=== PATIENT | female | born 1960 | race Caucasian/White ===

== ENCOUNTER 2017-02-04 09:16 | Inpatient (IN) | payer OTHER ==
[~2017-02-04] VITALS: Ht 165.1 cm; Wt 98.9 kg
[~2017-02-04 09:16] MED LIST: LISI-461 PO; LPR25 PO
[2017-02-04] MEDS ORDERED: MoRPHine SULFATE 10 MG/ML CARP/VIAL IV STA (09:39)
[2017-02-04] MEDS ORDERED: SODIUM CHLORIDE 0.9% 1000ML 1,000 ML IV STA ×2 (09:39→10:14)
[2017-02-04] MEDS ORDERED: ONDANSETRON INJ 2 MG/ML 2 ML VIAL IV STA ×2 (09:39→13:00)
[2017-02-04] MEDS ORDERED: ACETAMINOPHEN 500 MG TAB PO STA (09:47)
[2017-02-04] MEDS ORDERED: OPTIRAY 320 IV PRN (10:00)
[2017-02-04] MEDS ORDERED: CEFTRIAXONE SOD INJ 1 GM ADDVIAL IV STA (10:01)
[2017-02-04 10:11] LABS: BASO % 0.2 %; BASO ABS # 0.02 K/uL (0-0.2); COMPLETE YES; EOS % 0.2 %; HEMATOCRIT 38.4 % (37-47); IG% 0.3 %; LYMPH ABS # 0.39 K/uL (1.2-3.4); MEAN CELL VOLUME 85.1 fL (80-100); MEAN CORPUSCULAR HEMOGLOBIN 30.4 pg (25-34); MEAN CORPUSCULAR HGB CONC 35.7 g/dl (32-36); MEAN PLATELET VOLUME 10.9 fL (7.4-10.4); MONO % 3.9 %; NEUT % 92.4 %; PLATELET COUNT 164 K/uL (130-400); RED BLOOD COUNT 4.51 M/uL (4.2-5.4); WHITE BLOOD COUNT 13.18 K/uL (4.8-10.8)
[2017-02-04 10:49] LABS: ALKALINE PHOSPHATASE 53 U/L (45-117); ALT/SGPT 25 U/L (12-78); AST/SGOT 23 U/L (15-37); BLOOD UREA NITROGEN 12 mg/dl (7-18); BUN/CREATININE RATIO 19.1 (10-20); CALCIUM 9.1 mg/dl (8.5-10.1); CARBON DIOXIDE 25 mmol/L (21-32); CHLORIDE 105 mmol/L (98-107); CREATININE 0.65 mg/dl (0.60-1.20); GLUCOSE 90 mg/dl (70-99); POTASSIUM 3.8 mmol/L (3.5-5.1); SODIUM 137 mmol/L (136-145)
--- NOTE | 2017-02-04 11:02 | DIAGNOSTIC IMAGING REPORT ---
BILATERAL LOWER EXTREMITY VENOUS DOPPLER HISTORY: Acute bilateral lower extremity pain COMPARISON STUDY: None. FINDINGS: There is normal compressibility, flow, and augmentation within the bilateral lower extremity deep venous systems. Incidental note is made of a lymph node adjacent to the right common femoral vein, 0.9 x 1.2 x 0.6 cm, likely physiologic. IMPRESSION: No sonographic evidence of deep venous thrombosis within the right or left lower extremity. Electronically signed by: Adalberto Ramachandran M.D. 02/04/2017 11:00 AM Dictated Date/Time: 02/04/2017 10:59 AM
[2017-02-04 11:30] LABS: PREG INTERNAL NEGATIVE QC NEG CLEAR BACKGROUND; PREG INTERNAL POSITIVE QC POS CONTROL LINE
[2017-02-04 11:34] LABS: URINE APPEARANCE CLEAR (CLEAR); URINE BILIRUBIN NEG (NEG); URINE COLOR YELLOW; URINE NITRITE NEG (NEG); URINE PH 8.5 (4.5-7.5); URINE SPECIFIC GRAVITY 1.015 (1.000-1.030); UROBILINOGEN NEG (NEG); ZZUR CULT IF INDIC CLEAN CATCH NO
[2017-02-04 11:40] LABS: MANUAL MICROSCOPIC REQUIRED? NO; REVIEW REQ? NO
--- NOTE | 2017-02-04 12:10 | DIAGNOSTIC IMAGING REPORT ---
ABD/PELVIS IV CONTRAST ONLY HISTORY: 56 years-old Female acute diffuse abdominal pain with concern for cellulitis. COMPARISON: CT abdomen and pelvis 04/18/2016 TECHNIQUE: Multiple axial CT images of the abdomen and pelvis were obtained following the administration of 94 mL Optiray 320 IV contrast. A dose lowering technique was used consistent with the principals of EVY. FINDINGS: There is minimal dependent bibasilar atelectasis. Additional groundglass opacities are present within the medial basal segment right lower lobe, also likely atelectatic change. No pneumoperitoneum. The imaged inferior cardiac chambers are unremarkable. Scattered low attenuating lesions throughout the hepatic parenchyma are too small to characterize appear unchanged suggesting hepatic cysts. These measure up to approximate 7 mm. The spleen, pancreas and right adrenal gland are unremarkable. 1.4 x 1.2 cm ovoid lesion of the left adrenal gland is unchanged suggesting adenoma, however is not diagnostic on this contrast-enhanced study. Cholelithiasis noted within a somewhat distended gallbladder lumen. No CT evidence of acute cholecystitis Probable cyst of the interpolar left kidney is seen, 0.9 cm which is unchanged. No renal calculi or hydronephrosis. Ureters are normal in caliber. Urinary bladder, uterus and adnexa are unremarkable. . The abdominal aorta measures mild atherosclerotic plaquing. There is nonspecific mild bilateral inguinal adenopathy measuring up to 1.5 x 2.3 cm on the right, previously 1.8 x 1.0 cm. Scattered nonenlarged periaortic adenopathy is seen which is nonspecific and may be reactive. There is no bowel obstruction. Colonic thyroid ecchymosis noted without CT evidence of acute diverticulitis. The appendix appears normal. Note is made of diastases recti. Small fat filled periumbilical hernia is noted with diastases 1.7 cm. Moderate intervertebral disc space narrowing and endplate spurring seen at L5-S1. IMPRESSION: 1. No acute intra-abdominal or intrapelvic abnormality identified. 2. Cholelithiasis without CT evidence of acute cholecystitis. 3. Colonic diverticulosis without CT evidence of acute diverticulitis. 4. Diastases recti with small fat filled periumbilical hernia. 5. Additional incidental findings as above. The above report was generated using voice recognition software. It may contain grammatical, syntax or spelling errors. Electronically signed by: Adalberto Ramachandran M.D. 02/04/2017 12:09 PM Dictated Date/Time: 02/04/2017 12:00 PM
[2017-02-04] MEDS ORDERED: VANCOMYCIN INJ 2,000 MG in SODIUM CHLORIDE 0.9% 500ML 500 ML IV STA (12:57)
--- NOTE | 2017-02-04 12:57 | DIAGNOSTIC IMAGING REPORT ---
CHEST ONE VIEW PORTABLE HISTORY: 56 years-old Female COUGH COMPARISON: Chest radiographs 05/31/2015 TECHNIQUE: Portable upright AP view of the chest FINDINGS: Cardiac silhouette is again enlarged. There is no pneumothorax. There is mild pulmonary vascular congestion without overt pulmonary edema or focal airspace consolidation. There is blunting of the bilateral costophrenic angles. Bones are grossly intact. IMPRESSION: 1. Cardiomegaly without overt pulmonary edema. 2. Blunting of the bilateral costophrenic angle suggests trace pleural effusions. The above report was generated using voice recognition software. It may contain grammatical, syntax or spelling errors. Electronically signed by: Adalberto Ramachandran M.D. 02/04/2017 12:55 PM Dictated Date/Time: 02/04/2017 12:54 PM
[2017-02-04] MEDS ORDERED: MoRPHine SULFATE 4 MG/ML 1 ML CARP\\VIAL IV STA (13:00)
--- NOTE | 2017-02-04 14:07 | DIAGNOSTIC IMAGING REPORT ---
ULTRASOUND RIGHT UPPER QUADRANT ABDOMEN CLINICAL HISTORY: Right upper quadrant abdominal pain. COMPARISON STUDY: Abdominal CT dated 04/28/2016. TECHNIQUE: Real-time, grayscale, and color flow sonography of the right upper quadrant of the abdomen was performed. Images are reviewed in the transverse and longitudinal planes. FINDINGS: Liver: The liver is normal in size and echotexture. There is no intrahepatic biliary ductal dilatation. The main portal vein is patent. Gallbladder: There are shadowing calcified gallstones. The largest measures up to 1.6 cm. Sludge is noted. There is no gallbladder wall thickening or pericholecystic fluid. A sonographic Houser's sign is reportedly absent. The common bile duct is mildly dilated measuring up to 0.8 cm in diameter. Pancreas: Visualized portions of the pancreatic head and body are normal in appearance. The splenic vein is patent. Right kidney: Survey images of the right kidney demonstrate normal size and echotexture. There is no hydronephrosis. Ascites: None. IMPRESSION: 1. Cholelithiasis and biliary sludge. There is no convincing sonographic evidence of acute cholecystitis. 2. There is mild nonspecific dilatation of the common bile duct which measures up to 8 mm. Correlation with clinical findings and serum bilirubin levels will be required. Electronically signed by: Toño Schultz M.D. 02/04/2017 2:06 PM Dictated Date/Time: 02/04/2017 1:59 PM
[2017-02-04] MEDS ORDERED: MoRPHine SULFATE 2 MG/ML CARP IV PRN ×2 (15:00)
[2017-02-04] MEDS ORDERED: MAGNESIUM HYDROXIDE SUSP 30 ML UDC PO PRN (15:00)
[2017-02-04] MEDS ORDERED: POLYETHYLENE (MIRALAX) 17 GM PACK PO PRN (15:00)
[2017-02-04] MEDS ORDERED: SODIUM CHLORIDE 0.9% 1000ML 1,000 ML IV SCH (15:00)
[2017-02-04] MEDS ORDERED: ONDANSETRON INJ 2 MG/ML 2 ML VIAL IV PRN (15:00)
[2017-02-04] MEDS ORDERED: ALUMINUM/MAGNESIUM/SIMETH (MAALOX MAX) 30 ML UDC PO PRN (15:00)
[2017-02-04 15:30] VITALS: O2SAT 90; BMI 36.3
[2017-02-04] MEDS ORDERED: VANCOMYCIN CONSULT ACTIVE PRN (15:30)
--- NOTE | 2017-02-04 15:34 | History and Physical ---
History & Physical Date & Time of Service: Feb 04, 2017 at 15:05 Chief Complaint: Possible Cellulitis Primary Care Physician: Yareli Briseno,C.R.N.P. History of Present Illness Source: patient, family (/daughter at bedside ), clinic records, hospital records Patient is a pleasant 56 y/o female, with PMHx of HTN and h/o RLE cellulitis, who presented to the ED because of bilateral lower extremity pain and RUQ pain starting this AM. According to the patient, she noticed lower extremity pain from bilateral ankles to the knees. She noticed erythema to both bilateral anterior cortez regions, however, currently erythema only present to RLE. She denies any open wounds. Abdominal pain and bilateral extremity pain 6/10 after receiving IV Morphine 4 mg x1 and 6mg x1; pain was 10/10 on arrival. She has a h /o RLE cellulitis with chronic edema and reddened skin to position/medial calf. Per patient and family, source of cellulitis was not identified. She presented to the ED with similar complaints. Per daughter, patient has been experiencing RUQ pain for sometime now. She avoided eating eggs for a long time because it would cause the pain. She admits to RUQ swelling, but took a herb medication and swelling resolved. +fever/chills/sweats. +nausea. +diffuse joint aches. Patient denies any lightheadedness, dizziness, vision changes, CP, palpitations , SOB, wheezing, cough, vomiting, diarrhea, urinary symptoms, melena, numbness/ tingling, weakness, muscle, anxiety/depression, active bleeding, or new skin discoloration/changes. Past Medical/Surgical History Medical Problems: h/o cellulitis HTN Family History Patient reports no known family medical history. Social History Smoking Status: Never Smoker Marital Status: Allergies Coded Allergies: No Known Allergies (Unverified , 02/04/17) Home Medications Scheduled Lisinopril (Lisinopril), 10 MG PO QAM Metoprolol Tartrate (Lopressor), 25 MG PO BID Physical Exam Vital Signs Date Time Temp Pulse Resp B/P (MAP) Pulse Ox O2 Delivery O2 Flow Rate FiO2 02/04/17 14:27 85 125/68 90 Room Air 02/04/17 12:40 92 137/73 93 Room Air 02/04/17 10:56 38.1 92 20 150/74 92 Room Air 02/04/17 09:40 39.5 83 95 Room Air 02/04/17 09:19 36.8 87 18 160/87 99 Room Air General Appearance: no apparent distress, + pertinent finding (flushed, diaphoretic ) Head: normocephalic, atraumatic Eyes: normal inspection, PERRL ENT: hearing grossly normal Neck: supple Respiratory/Chest: lungs clear, no respiratory distress, no accessory muscle use Cardiovascular: + tachycardia (rhythm regular ) Abdomen/GI: normal bowel sounds, soft, + tenderness (moderate-severe ttp of RUQ ), + pertinent finding (+houser's sign ) Back: normal inspection Extremities/Musculoskelatal: no calf tenderness, no pedal edema, + swelling ( non-pitting edema noted to bilateral lower extremities ), + pertinent finding ( RLE: chronic reddened skin noted to posterior/medical calf with erythema extending from medial calf to anterior cortez region ) Neurologic/Psych: alert, normal mood/affect, oriented x 3 Skin: normal color, no rash, + diaphoresis, + pertinent finding (skin hot to touch ) Diagnostics Laboratory Results Results Past 24 Hours Test 02/04/17 10:00 02/04/17 10:10 02/04/17 11:15 Range/Units White Blood Count 13.18 4.8-10.8 K/uL Red Blood Count 4.51 4.2-5.4 M/uL Hemoglobin 13.7 12.0-16.0 g/dL Hematocrit 38.4 37-47 % Mean Corpuscular Volume 85.1 80-100 fL Mean Corpuscular Hemoglobin 30.4 25-34 pg Mean Corpuscular Hemoglobin Concent 35.7 32-36 g/dl Platelet Count 164 130-400 K/uL Mean Platelet Volume 10.9 7.4-10.4 fL Neutrophils (%) (Auto) 92.4 % Lymphocytes (%) (Auto) 3.0 % Monocytes (%) (Auto) 3.9 % Eosinophils (%) (Auto) 0.2 % Basophils (%) (Auto) 0.2 % Neutrophils # (Auto) 12.19 1.4-6.5 K/uL Lymphocytes # (Auto) 0.39 1.2-3.4 K/uL Monocytes # (Auto) 0.51 0.11-0.59 K/uL Eosinophils # (Auto) 0.03 0-0.5 K/uL Basophils # (Auto) 0.02 0-0.2 K/uL RDW Standard Deviation 40.3 36.4-46.3 fL RDW Coefficient of Variation 12.8 11.5-14.5 % Immature Granulocyte % (Auto) 0.3 % Immature Granulocyte # (Auto) 0.04 0.00-0.02 K/uL Sodium Level 137 136-145 mmol/L Potassium Level 3.8 3.5-5.1 mmol/L Chloride Level 105 98-107 mmol/L Carbon Dioxide Level 25 21-32 mmol/L Anion Gap 7.0 3-11 mmol/L Blood Urea Nitrogen 12 7-18 mg/dl Creatinine 0.65 0.60-1.20 mg/dl Estimated GFR () 115.8 Estimated GFR (Non- 99.9 BUN/Creatinine Ratio 19.1 10-20 Random Glucose 90 70-99 mg/dl Calcium Level 9.1 8.5-10.1 mg/dl Total Bilirubin 0.9 0.2-1 mg/dl Direct Bilirubin 0-0.2 mg/dl Aspartate Amino Transf (AST/SGOT) 23 15-37 U/L Alanine Aminotransferase (ALT/SGPT) 25 12-78 U/L Alkaline Phosphatase 53 45-117 U/L Total Protein 7.5 6.4-8.2 gm/dl Albumin 3.5 3.4-5.0 gm/dl Lipase 112 73-393 U/L Chemistry Specimen Hemolysis Bedside Lactic Acid Venous 2.75 0.90-1.70 mmol/L Urine Color YELLOW Urine Appearance CLEAR CLEAR Urine pH 8.5 4.5-7.5 Urine Specific [place] 1.015 1.000-1.030 Urine Protein NEG NEG Urine Glucose (UA) NEG NEG Urine Ketones NEG NEG Urine Occult Blood NEG NEG Urine Nitrite NEG NEG Urine Bilirubin NEG NEG Urine Urobilinogen NEG NEG Urine Leukocyte Esterase NEG NEG Urine WBC (Auto) 0 0-5 /hpf Urine RBC (Auto) 0-4 0-4 /hpf Urine Hyaline Casts (Auto) 0 0-5 /lpf Urine Epithelial Cells (Auto) 5-10 0-5 /lpf Urine Bacteria (Auto) NEG NEG Urine Test NEG NEG Microbiology Results 02/04/17 Blood Culture, Ordered Pending 02/04/17 Blood Culture, Ordered Pending Diagnostic Radiology BILATERAL LOWER EXTREMITY VENOUS DOPPLER HISTORY: Acute bilateral lower extremity pain COMPARISON STUDY: None. FINDINGS: There is normal compressibility, flow, and augmentation within the bilateral lower extremity deep venous systems. Incidental note is made of a lymph node adjacent to the right common femoral vein, 0.9 x 1.2 x 0.6 cm, likely physiologic. IMPRESSION: No sonographic evidence of deep venous thrombosis within the right or left lower extremity. Electronically signed by: Adalberto Ramachandran M.D. 02/04/2017 11:00 AM Dictated Date/Time: 02/04/2017 10:59 AM The status of this report is Signed. Draft = Not yet reviewed or approved by Radiologist. Signed = Reviewed and approved by Radiologist. ABD/PELVIS IV CONTRAST ONLY HISTORY: 56 years-old Female acute diffuse abdominal pain with concern for cellulitis. COMPARISON: CT abdomen and pelvis 04/18/2016 TECHNIQUE: Multiple axial CT images of the abdomen and pelvis were obtained following the administration of 94 mL Optiray 320 IV contrast. A dose lowering technique was used consistent with the principals of EVY. FINDINGS: There is minimal dependent bibasilar atelectasis. Additional groundglass opacities are present within the medial basal segment right lower lobe, also likely atelectatic change. No pneumoperitoneum. The imaged inferior cardiac chambers are unremarkable. Scattered low attenuating lesions throughout the hepatic parenchyma are too small to characterize appear unchanged suggesting hepatic cysts. These measure up to approximate 7 mm. The spleen, pancreas and right adrenal gland are unremarkable. 1.4 x 1.2 cm ovoid lesion of the left adrenal gland is unchanged suggesting adenoma, however is not diagnostic on this contrast-enhanced study. Cholelithiasis noted within a somewhat distended gallbladder lumen. No CT evidence of acute cholecystitis Probable cyst of the interpolar left kidney is seen, 0.9 cm which is unchanged. No renal calculi or hydronephrosis. Ureters are normal in caliber. Urinary bladder, uterus and adnexa are unremarkable. . The abdominal aorta measures mild atherosclerotic plaquing. There is nonspecific mild bilateral inguinal adenopathy measuring up to 1.5 x 2.3 cm on the right, previously 1.8 x 1.0 cm. Scattered nonenlarged periaortic adenopathy is seen which is nonspecific and may be reactive. There is no bowel obstruction. Colonic thyroid ecchymosis noted without CT evidence of acute diverticulitis. The appendix appears normal. Note is made of diastases recti. Small fat filled periumbilical hernia is noted with diastases 1.7 cm. Moderate intervertebral disc space narrowing and endplate spurring seen at L5-S1. IMPRESSION: 1. No acute intra-abdominal or intrapelvic abnormality identified. 2. Cholelithiasis without CT evidence of acute cholecystitis. 3. Colonic diverticulosis without CT evidence of acute diverticulitis. 4. Diastases recti with small fat filled periumbilical hernia. 5. Additional incidental findings as above. The above report was generated using voice recognition software. It may contain grammatical, syntax or spelling errors. Electronically signed by: Adalberto Ramachandran M.D. 02/04/2017 12:09 PM Dictated Date/Time: 02/04/2017 12:00 PM The status of this report is Signed. Draft = Not yet reviewed or approved by Radiologist. Signed = Reviewed and approved by Radiologist. CHEST ONE VIEW PORTABLE HISTORY: 56 years-old Female COUGH COMPARISON: Chest radiographs 05/31/2015 TECHNIQUE: Portable upright AP view of the chest FINDINGS: Cardiac silhouette is again enlarged. There is no pneumothorax. There is mild pulmonary vascular congestion without overt pulmonary edema or focal airspace consolidation. There is blunting of the bilateral costophrenic angles. Bones are grossly intact. IMPRESSION: 1. Cardiomegaly without overt pulmonary edema. 2. Blunting of the bilateral costophrenic angle suggests trace pleural effusions. The above report was generated using voice recognition software. It may contain grammatical, syntax or spelling errors. Electronically signed by: Adalberto Ramachandran M.D. 02/04/2017 12:55 PM Dictated Date/Time: 02/04/2017 12:54 PM The status of this report is Signed. Draft = Not yet reviewed or approved by Radiologist. ULTRASOUND RIGHT UPPER QUADRANT ABDOMEN CLINICAL HISTORY: Right upper quadrant abdominal pain. COMPARISON STUDY: Abdominal CT dated 04/28/2016. TECHNIQUE: Real-time, grayscale, and color flow sonography of the right upper quadrant of the abdomen was performed. Images are reviewed in the transverse and longitudinal planes. FINDINGS: Liver: The liver is normal in size and echotexture. There is no intrahepatic biliary ductal dilatation. The main portal vein is patent. Gallbladder: There are shadowing calcified gallstones. The largest measures up to 1.6 cm. Sludge is noted. There is no gallbladder wall thickening or pericholecystic fluid. A sonographic Houser's sign is reportedly absent. The common bile duct is mildly dilated measuring up to 0.8 cm in diameter. Pancreas: Visualized portions of the pancreatic head and body are normal in appearance. The splenic vein is patent. Right kidney: Survey images of the right kidney demonstrate normal size and echotexture. There is no hydronephrosis. Ascites: None. IMPRESSION: 1. Cholelithiasis and biliary sludge. There is no convincing sonographic evidence of acute cholecystitis. 2. There is mild nonspecific dilatation of the common bile duct which measures up to 8 mm. Correlation with clinical findings and serum bilirubin levels will be required. Electronically signed by: Toño Schultz M.D. 02/04/2017 2:06 PM Dictated Date/Time: 02/04/2017 1:59 PM The status of this report is Signed. Draft = Not yet reviewed or approved by Radiologist. Signed = Reviewed and approved by Radiologist. Impression Assessment and Plan Patient is a pleasant 56 y/o female, with PMHx of HTN and h/o RLE cellulitis, who presented to the ED because of bilateral lower extremity pain and RUQ pain starting this AM. Sepsis, unknown source- ?secondary to RLE cellulitis vs gallbladder source: - Admit to med/surg - IV NSS @ 125 ml/hr - IV Vancomycin + Rocephin - Check MRSA swab - BCx pending- received IV Rocephin and Vancomycin started in ED prior to obtaining BCx - UA negative - Lactic acid 2.75 at admission- repeat q6 hrs - IV Morphine 1-2 mg q3 hrs PRN pain management - Tylenol PRN for fever - Bilateral lower extremity Doppler- negative for DVT - Follow CBC RUQ pain: - CT- Cholelithiasis without CT evidence of acute cholecystitis. - RUQ US- Cholelithiasis and biliary sludge. There is no convincing sonographic evidence of acute cholecystitis. There is mild nonspecific dilatation of the common bile duct which measures up to 8 mm. Correlation with clinical findings and serum bilirubin levels will be required. - Obtain HIDA scan - Consult general surgery, appreciate recommendations HTN- STABLE: Continue Lisinopril 10 mg daily and Metoprolol 25 mg BID DVT Prophylaxis: Lovenox SQ Code Status: LEVEL V, DNR Dispo: From home, lives w/ family- no discharge needs anticipated i personally examined pt and verified all dinh points w Barb Rose PAC dual complaints of leg pain and upper abdominal pain vitals noted, appearing mildly moderately uncomfortable RUQ pain to palp RLE dull erythema but tender mostly anterior cortez RUQ US noted, HIDA ordered, done after i'd seen her - noted now RUQ pain - seemed most c/w GB disease, but at this point labs and diagnostics not supporting it. surgical and GI evals LE cellulitis - abx as above otherwise as above Level of Care Med/Surg Resuscitation Status DO NOT RESUSCITATE VTE Prophylaxis VTE Risk Assessment Done? Y/N: Yes Risk Level: Moderate Given or contraindicated: Enoxaparin (Lovenox)SQ, T.E.D. Stockings, SCD's
[2017-02-04 15:36] VITALS: Ht 165.1 cm; Wt 98.9 kg
[2017-02-04 16:07] VITALS: O2SAT 94
[2017-02-04 16:22] VITALS: BP 137/79; PULSE 81; TEMP 37.8; O2SAT 93
--- NOTE | 2017-02-04 16:43 | EMERGENCY ROOM VISIT NOTE ---
History Report prepared by Dyan: Sandra Mata Under the Supervision of: Lex AnguianoO. First contact with patient: 09:26 Chief Complaint: LEG PAIN Stated Complaint: POSSIBLE CELLULITIS History of Present Illness The patient is a 56 year old female who presents to the Emergency Room with complaints of worsening bilateral leg pain that began last night. She states that yesterday she had some pain in the backs of her legs bilaterally. This morning when she woke up she had worsening pain that continued throughout the morning. Her pain starts in the back of her calves and radiates up into the back of her thighs bilaterally. She rates her pain as a 10/10 in severity. Per patient and family, her legs appear to be more swollen than usual. The patient is also complaining of some mid-abdominal pain that began this morning. She is feeling nauseated as well. Pt denies headache, fevers, rhinorrhea, cough, chest pain, shortness of breath, vomiting, diarrhea, pain with urination, and melena. She had a normal bowel movement this morning. She denies any recent trauma or falls. She denies any previous abdominal surgeries. The patient has had cellulitis of her legs in the past. Source of History: patient, family Onset: last night Position: leg (bilateral) Symptom Intensity: 10/10 Quality: other (radiating) Timing: worsening Associated Symptoms: + nausea, No fevers, No headache, No chest pain, No SOB , No vomiting, No melena, No diarrhea, No urinary symptoms Note: Legs are swollen. Pt denies rhinorrhea, recent trauma or falls. Review of Systems See HPI for pertinent positives & negatives. A total of 10 systems reviewed and were otherwise negative. Past Medical & Surgical Medical Problems: (1) Cellulitis of right lower extremity (2) Fever (3) Sepsis (4) UTI (urinary tract infection) Family History Patient reports no known family medical history. Social History Smoking Status: Never Smoker Alcohol Use: none Marital Status: Housing Status: lives with family Current/Historical Medications Scheduled Lisinopril (Lisinopril), 10 MG PO QAM Metoprolol Tartrate (Lopressor), 25 MG PO BID Allergies Coded Allergies: No Known Allergies (Unverified , 02/04/17) Physical Exam Vital Signs Date Time Temp Pulse Resp B/P (MAP) Pulse Ox O2 Delivery O2 Flow Rate FiO2 02/04/17 14:27 85 125/68 90 Room Air 02/04/17 12:40 92 137/73 93 Room Air 02/04/17 10:56 38.1 92 20 150/74 92 Room Air 02/04/17 09:40 39.5 83 95 Room Air 02/04/17 09:19 36.8 87 18 160/87 99 Room Air Physical Exam GENERAL: alert, sitting up in bed, disheveled appearing, well nourished, no distress, non-toxic EYE EXAM: normal conjunctiva OROPHARYNX: no exudate, no erythema, lips, buccal mucosa, and tongue normal and mucous membranes are moist NECK: supple, no nuchal rigidity, no adenopathy, non-tender LUNGS: Clear to auscultation. Normal chest wall mechanics HEART: no murmurs, S1 normal and S2 normal ABDOMEN: abdomen soft, tender to palpation of the periumbilical/right mid- quadrant, normo-active bowel sounds, no masses, no rebound or guarding. BACK: Back is symmetrical on inspection and there is no deformity, no midline tenderness, no CVA tenderness. SKIN: no rashes and no bruising UPPER EXTREMITIES: upper extremities are grossly normal. LOWER EXTREMITIES: No pitting edema. Bruising on the back of the right calf with mild erythema and a 1 inch band on the anterior surface of her right distal tibia, DP 2/4. NEURO EXAM: Normal sensorium, cranial nerves II-XII grossly intact, normal speech, no gross weakness of arms, no gross weakness of legs. Medical Decision & Procedures ER Provider Diagnostic Interpretation: Radiology results as stated below per my review and the radiologist's interpretation: BILATERAL LOWER EXTREMITY VENOUS DOPPLER HISTORY: Acute bilateral lower extremity pain COMPARISON STUDY: None. FINDINGS: There is normal compressibility, flow, and augmentation within the bilateral lower extremity deep venous systems. Incidental note is made of a lymph node adjacent to the right common femoral vein, 0.9 x 1.2 x 0.6 cm, likely physiologic. IMPRESSION: No sonographic evidence of deep venous thrombosis within the right or left lower extremity. Electronically signed by: Adalberto Ramachandran M.D. 02/04/2017 11:00 AM Dictated Date/Time: 02/04/2017 10:59 AM ABD/PELVIS IV CONTRAST ONLY HISTORY: 56 years-old Female acute diffuse abdominal pain with concern for cellulitis. COMPARISON: CT abdomen and pelvis 04/18/2016 TECHNIQUE: Multiple axial CT images of the abdomen and pelvis were obtained following the administration of 94 mL Optiray 320 IV contrast. A dose lowering technique was used consistent with the principals of EVY. FINDINGS: There is minimal dependent bibasilar atelectasis. Additional groundglass opacities are present within the medial basal segment right lower lobe, also likely atelectatic change. No pneumoperitoneum. The imaged inferior cardiac chambers are unremarkable. Scattered low attenuating lesions throughout the hepatic parenchyma are too small to characterize appear unchanged suggesting hepatic cysts. These measure up to approximate 7 mm. The spleen, pancreas and right adrenal gland are unremarkable. 1.4 x 1.2 cm ovoid lesion of the left adrenal gland is unchanged suggesting adenoma, however is not diagnostic on this contrast-enhanced study. Cholelithiasis noted within a somewhat distended gallbladder lumen. No CT evidence of acute cholecystitis Probable cyst of the interpolar left kidney is seen, 0.9 cm which is unchanged. No renal calculi or hydronephrosis. Ureters are normal in caliber. Urinary bladder, uterus and adnexa are unremarkable. . The abdominal aorta measures mild atherosclerotic plaquing. There is nonspecific mild bilateral inguinal adenopathy measuring up to 1.5 x 2.3 cm on the right, previously 1.8 x 1.0 cm. Scattered nonenlarged periaortic adenopathy is seen which is nonspecific and may be reactive. There is no bowel obstruction. Colonic thyroid ecchymosis noted without CT evidence of acute diverticulitis. The appendix appears normal. Note is made of diastases recti. Small fat filled periumbilical hernia is noted with diastases 1.7 cm. Moderate intervertebral disc space narrowing and endplate spurring seen at L5-S1. IMPRESSION: 1. No acute intra-abdominal or intrapelvic abnormality identified. 2. Cholelithiasis without CT evidence of acute cholecystitis. 3. Colonic diverticulosis without CT evidence of acute diverticulitis. 4. Diastases recti with small fat filled periumbilical hernia. 5. Additional incidental findings as above. The above report was generated using voice recognition software. It may contain grammatical, syntax or spelling errors. Electronically signed by: Adalberto Ramachandran M.D. 02/04/2017 12:09 PM Dictated Date/Time: 02/04/2017 12:00 PM CHEST ONE VIEW PORTABLE HISTORY: 56 years-old Female COUGH COMPARISON: Chest radiographs 05/31/2015 TECHNIQUE: Portable upright AP view of the chest FINDINGS: Cardiac silhouette is again enlarged. There is no pneumothorax. There is mild pulmonary vascular congestion without overt pulmonary edema or focal airspace consolidation. There is blunting of the bilateral costophrenic angles. Bones are grossly intact. IMPRESSION: 1. Cardiomegaly without overt pulmonary edema. 2. Blunting of the bilateral costophrenic angle suggests trace pleural effusions. The above report was generated using voice recognition software. It may contain grammatical, syntax or spelling errors. Electronically signed by: Adalberto Ramachandran M.D. 02/04/2017 12:55 PM Dictated Date/Time: 02/04/2017 12:54 PM Laboratory Results 02/04/17 10:00 Red Blood Count 4.51, Mean Corpuscular Volume 85.1, Mean Corpuscular Hemoglobin 30.4, Mean Corpuscular Hemoglobin Concent 35.7, Mean Platelet Volume 10.9, Neutrophils (%) (Auto) 92.4, Lymphocytes (%) (Auto) 3.0, Monocytes (%) (Auto) 3.9, Eosinophils (%) (Auto) 0.2, Basophils (%) (Auto) 0.2, Neutrophils # (Auto) 12.19, Lymphocytes # (Auto) 0.39, Monocytes # (Auto) 0.51, Eosinophils # (Auto) 0.03, Basophils # (Auto) 0.02 02/04/17 10:00 Test 02/04/17 10:00 02/04/17 10:10 02/04/17 11:15 White Blood Count 13.18 K/uL (4.8-10.8) Red Blood Count 4.51 M/uL (4.2-5.4) Hemoglobin 13.7 g/dL (12.0-16.0) Hematocrit 38.4 % (37-47) Mean Corpuscular Volume 85.1 fL (80-100) Mean Corpuscular Hemoglobin 30.4 pg (25-34) Mean Corpuscular Hemoglobin Concent 35.7 g/dl (32-36) Platelet Count 164 K/uL (130-400) Mean Platelet Volume 10.9 fL (7.4-10.4) Neutrophils (%) (Auto) 92.4 % Lymphocytes (%) (Auto) 3.0 % Monocytes (%) (Auto) 3.9 % Eosinophils (%) (Auto) 0.2 % Basophils (%) (Auto) 0.2 % Neutrophils # (Auto) 12.19 K/uL (1.4-6.5) Lymphocytes # (Auto) 0.39 K/uL (1.2-3.4) Monocytes # (Auto) 0.51 K/uL (0.11-0.59) Eosinophils # (Auto) 0.03 K/uL (0-0.5) Basophils # (Auto) 0.02 K/uL (0-0.2) RDW Standard Deviation 40.3 fL (36.4-46.3) RDW Coefficient of Variation 12.8 % (11.5-14.5) Immature Granulocyte % (Auto) 0.3 % Immature Granulocyte # (Auto) 0.04 K/uL (0.00-0.02) Anion Gap 7.0 mmol/L (3-11) Estimated GFR () 115.8 Estimated GFR (Non- 99.9 BUN/Creatinine Ratio 19.1 (10-20) Calcium Level 9.1 mg/dl (8.5-10.1) Total Bilirubin 0.9 mg/dl (0.2-1) Direct Bilirubin mg/dl (0-0.2) Aspartate Amino Transf (AST/SGOT) 23 U/L (15-37) Alanine Aminotransferase (ALT/SGPT) 25 U/L (12-78) Alkaline Phosphatase 53 U/L (45-117) Total Protein 7.5 gm/dl (6.4-8.2) Albumin 3.5 gm/dl (3.4-5.0) Lipase 112 U/L (73-393) Chemistry Specimen Hemolysis Bedside Lactic Acid Venous 2.75 mmol/L (0.90-1.70) Urine Color YELLOW Urine Appearance CLEAR (CLEAR) Urine pH 8.5 (4.5-7.5) Urine Specific [place] 1.015 (1.000-1.030) Urine Protein NEG (NEG) Urine Glucose (UA) NEG (NEG) Urine Ketones NEG (NEG) Urine Occult Blood NEG (NEG) Urine Nitrite NEG (NEG) Urine Bilirubin NEG (NEG) Urine Urobilinogen NEG (NEG) Urine Leukocyte Esterase NEG (NEG) Urine WBC (Auto) 0 /hpf (0-5) Urine RBC (Auto) 0-4 /hpf (0-4) Urine Hyaline Casts (Auto) 0 /lpf (0-5) Urine Epithelial Cells (Auto) 5-10 /lpf (0-5) Urine Bacteria (Auto) NEG (NEG) Urine Test NEG (NEG) Laboratory results per my review. Medications Administered Medications (Trade) Dose Ordered Sig/Holger Route Start Time Stop Time Status Last Admin Dose Admin Sodium Chloride 1,000 ml @ 999 mls/hr Q1H1M STAT IV 02/04/17 09:39 02/04/17 10:39 DC 02/04/17 10:11 999 MLS/HR Ondansetron HCl (Zofran Inj) 4 mg NOW STAT IV 02/04/17 09:39 02/04/17 09:42 DC 02/04/17 10:10 4 MG Morphine Sulfate (MoRPHine SULFATE INJ) 6 mg NOW STAT IV 02/04/17 09:39 02/04/17 09:42 DC 02/04/17 10:10 6 MG Acetaminophen (Tylenol Tab) 1,000 mg NOW STAT PO 02/04/17 09:47 02/04/17 09:48 DC 02/04/17 10:09 1,000 MG Ceftriaxone Sodium (Rocephin Inj) 1 gm NOW STAT IV 02/04/17 10:01 02/04/17 10:02 DC 02/04/17 10:09 1 GM Sodium Chloride 1,000 ml @ 999 mls/hr Q1H1M STAT IV 02/04/17 10:14 02/04/17 11:14 DC 02/04/17 10:56 999 MLS/HR Vancomycin HCl 2000 mg/Sodium Chloride 540 ml @ 200 mls/hr ONE STAT IV 02/04/17 12:57 02/04/17 15:38 DC 02/04/17 13:10 200 MLS/HR Morphine Sulfate (MoRPHine SULFATE INJ) 4 mg NOW STAT IV 02/04/17 13:00 02/04/17 13:01 DC 02/04/17 13:09 4 MG Ondansetron HCl (Zofran Inj) 4 mg NOW STAT IV 02/04/17 13:00 02/04/17 13:01 DC 02/04/17 13:09 4 MG ED Course ED COURSE: Vital signs were reviewed and showed febrile and hypertensive. The patients medical record was reviewed The above diagnostic studies were performed and reviewed. ED treatments and interventions as stated above. 0930: The patient was evaluated in room A4B. A complete history and physical examination was performed. 0939: Morphine sulfate 6 mg IV, Zofran 4 mg IV, NSS 1000 ml @ 999 mls/hr IV 0947: Tylenol 1000 mg PO 1001: Rocephin 1 gm IV 1014: NSS 1000 ml @ 999 mls/hr IV 1256: Upon reevaluation, the patient is doing well. The redness of her leg has significantly worsened. I discussed my findings with the patient and she understands and agrees with the treatment plan. Based on the patients age, coexisting illnesses, exam and lab findings the decision to treat as an inpatient was made. The patient remained stable while under my care. The patient will be evaluated for further management. 1257: Vancomycin HCl 2000 mg/Sodium Chloride 540 ml @ 200 mls/hr IV 1300: Zofran mg IV, Morphine sulfate 4 mg IV 1305: I reviewed the patient's case with Dr. Moran. [facility] will evaluate the patient for further management. Medical Decision Differential diagnosis includes etiologies such as sepsis, UTI, pneumonia, metabolic, electrolyte abnormalities, cardiac sources, intracerebral event, toxicologic, neurologic, as well as others were entertained. Patient is a 56-year-old female who presents the ER for chills associated with leg pain. On initial exam showed mild erythema around her right mid cortez. This initially worsened throughout her stay in the ER. She is initially given an IV of Rocephin and vancomycin as she was febrile at 39 with a lactate at 2.7. She was given 2 L normal saline. She did complain of mild abdominal pains a CT was performed which showed gallstones without signs of acute cholecystitis. Labs were remarkable for a leukocytosis of 13,000. UA was unremarkable. was negative. Case was discussed with internal medicine patient was noted for a worsening cellulitis. Size of the erythema grew significantly throughout her stay in the ER. Her CBG was slightly dilated at 8 mm. She may end up needing an ERCP however she does not have significant elevation in bilirubin or LFTs. Patient was noted to internal medicine for further workup. Medication Reconcilliation Current Medication List: was personally reviewed by me Blood Pressure Screening Patient's blood pressure: Elevated blood pressure Blood pressure disposition: Elevated BP felt to be situational Consults Time Called: 1302 Consulting Physician: Dr. Moran Returned Call: 1305 I reviewed the patient's case with Dr. Moran. [facility] will evaluate the patient for further management. Impression Primary Impression: Sepsis Additional Impressions: Cellulitis of right leg Elevated lactic acid level Common bile duct dilation Scribe Attestation The scribe's documentation has been prepared under my direction and personally reviewed by me in its entirety. I confirm that the note above accurately reflects all work, treatment, procedures, and medical decision making performed by me. Departure Information Dispostion Being Evaluated By Hospitalist Referrals No Doctor, Assigned (PCP) Patient Instructions [facility] Problem Qualifiers Primary Impression: Sepsis Sepsis type: sepsis due to unspecified organism Qualified Codes: A41.9 - Sepsis, unspecified organism
--- NOTE | 2017-02-04 16:53 | Pharmacy Progress Note ---
Pharmacy Abx Initial Consult Date of Service Feb 04, 2017. Pharmacy Dosing Scope Date of Consult: 02/04/17 Consultation requested by: Lori Rose PA-C Pharmacy is consulted to initiate vancomycin IV dosing therapy, order appropriate labs and adjust drug dose/frequency. Subjective The patient is a 56 year old female admitted on Feb 04, 2017 at 15:03. Objective Height (Feet): 5 Height (Inches): 5.00 Weight (Kilograms): 98.900 Vital Signs (Past 12Hrs) Vital Signs Past 12 Hours Date Time Temp Pulse Resp B/P (MAP) Pulse Ox O2 Delivery O2 Flow Rate FiO2 02/04/17 16:07 37.7 84 16 122/64 94 02/04/17 15:30 90 Room Air 02/04/17 14:27 85 125/68 90 Room Air 02/04/17 12:40 92 137/73 93 Room Air 02/04/17 10:56 38.1 92 20 150/74 92 Room Air 02/04/17 09:40 39.5 83 95 Room Air 02/04/17 09:19 36.8 87 18 160/87 99 Room Air Lab Results (24Hrs) Laboratory Tests (24 Hours) Test 02/04/17 10:00 02/04/17 15:52 White Blood Count 13.18 K/uL (4.8-10.8) H Red Blood Count 4.51 M/uL (4.2-5.4) Hemoglobin 13.7 g/dL (12.0-16.0) Hematocrit 38.4 % (37-47) Mean Corpuscular Volume 85.1 fL (80-100) Mean Corpuscular Hemoglobin 30.4 pg (25-34) Mean Corpuscular Hemoglobin Concent 35.7 g/dl (32-36) Platelet Count 164 K/uL (130-400) Mean Platelet Volume 10.9 fL (7.4-10.4) H Neutrophils (%) (Auto) 92.4 % Lymphocytes (%) (Auto) 3.0 % Monocytes (%) (Auto) 3.9 % Eosinophils (%) (Auto) 0.2 % Basophils (%) (Auto) 0.2 % Neutrophils # (Auto) 12.19 K/uL (1.4-6.5) H Lymphocytes # (Auto) 0.39 K/uL (1.2-3.4) L Monocytes # (Auto) 0.51 K/uL (0.11-0.59) Eosinophils # (Auto) 0.03 K/uL (0-0.5) Basophils # (Auto) 0.02 K/uL (0-0.2) Lactic Acid Level 1.8 mmol/L (0.4-2.0) Micro Results Date/Time Source Procedure Growth Status 02/04/17 15:52 Blood Blood Culture Pending Received 02/04/17 15:43 Blood Blood Culture Pending Received Risk Factors for Resistance * no risk factors Assessment & Plan Assessment 56 year old female admitted for cellulitis. She has a PMH of cellulitis and edema of her RLE. The previous cause of cellulitis was not identified. Plan vancomycin for treatment of cellulitis Vancomycin IV * Loading dose: 1500 mg (20 mg/kg) * Maintenance dose: 1500 mg IV (15 mg/kg) every 10 hours * Goal trough level for cellulitis : 10 to 15 mcg/mL (possibly 15-20 for MRSA) * Trough ordered for 02/06/17 prior to 0500 dose Pharmacy will continue to follow and will adjust dose/frequency as necessary. Thank you.
[2017-02-04 17:17] LABS: PARTIAL THROMBOPLASTIN RATIO 1.1; PROTHROMBIN TIME (PATIENT) 10.7 SECONDS (9.0-12.0)
--- NOTE | 2017-02-04 19:41 | DIAGNOSTIC IMAGING REPORT ---
HEPATOBILIARY HIDA IMAGING CLINICAL HISTORY: 56 years-old Female presenting with RUQ pain, gallstones . TECHNIQUE: Immediately following the intravenous administration of 5.5 mCi Tc-99m Choletec, dynamic anterior abdominal imaging was performed. COMPARISON: Ultrasound performed the same day.. FINDINGS: Uniform hepatic tracer accumulation is shown. Prompt intrahepatic biliary excretion is seen. The gallbladder, common bile duct, and small bowel are all visualized by 30 minutes. This appearance represents the normal sequence of biliary excretion. Prominence of the extrahepatic bile duct. IMPRESSION: 1. No evidence for cystic duct obstruction to suggest cholecystitis. Electronically signed by: Boris Mabry M.D. 02/04/2017 7:39 PM Dictated Date/Time: 02/04/2017 7:38 PM
[2017-02-04 20:08] VITALS: BP 159/78; PULSE 89; TEMP 37.7; O2SAT 94
[2017-02-04] MEDS: ENOXAPARIN 40 MG/0.4 ML SYR SQ SCH (21:24)
[2017-02-04] MEDS: METOPROLOL TARTRATE 25 MG TAB PO SCH (21:24)
[2017-02-04] MEDS ORDERED: NURSING VERBAL MED ORDER ONE (22:15)
[2017-02-04] MEDS: VANCOMYCIN INJ 1,500 MG in SODIUM CHLORIDE 0.9% 500ML 500 ML IV SCH (22:58)
[2017-02-04] MEDS: ACETAMINOPHEN 325 MG TAB PO PRN (23:25)
[2017-02-04 23:53] VITALS: BP 150/81; PULSE 82; TEMP 37.8; O2SAT 91
[2017-02-05] VITALS (7 sets, daily range): BP systolic 147–153; BP diastolic 77–81; PULSE 69–76; TEMP 37.1–37.7; O2SAT 93–94
[2017-02-05] MEDS: VANCOMYCIN INJ 1,500 MG in SODIUM CHLORIDE 0.9% 500ML 500 ML IV SCH ×2 (08:20→19:42)
[2017-02-05] MEDS ORDERED: PANTOprazole SOD 40 MG TAB PO STA (08:30)
--- NOTE | 2017-02-05 08:38 | Gastrointestinal Consultation ---
Gastrointestinal Consultation Date of Consultation: Feb 05, 2017 Attending Physician: Michael Moran Consulting Physician: Diomedes Martinez Reason for Consultation: RUQ pain History of Present Illness Patient is a 56 year old female with a chief complaint of abdominal pain. and daughter with patient for H and P. Pt states one year ago had cellulitis and also at that time RUQ pain. No pain in abdomen since then until yesterday again RUQ pain 6/10. Pain better today. Some nausea but no vomiting. No change in bowels. Has fever and chills but also has cellulitis of lower extrmeties noted this admission. States she has some GERD. No bloody nor black stools. Never had EGD or colonoscopy. CBC elevated WBC. Lactic acid elevated then normal. CMP and lipase normal. CT A/P Gallstones prob liver cysts, probable adrenal adenoma, diverticulosis, umbilical hernia. U/ S GB gallstones, sludge and CBD 8 mm. HIDA scan negative. Pt states abd pain better today. Past Medical/Surgical History Medical Problems: (1) Cellulitis of right leg Status: Acute (2) Common bile duct dilation Status: Acute (3) Elevated lactic acid level Status: Acute Family History Patient reports no known family medical history. Social History Smoking Status: Never Smoker Alcohol Use: none Marital Status: Housing Status: lives with family Allergies Coded Allergies: No Known Allergies (Unverified , 02/04/17) Current Medications Home Meds and Scripts Medications Dose Route/Sig Max Daily Dose Days Date Category Dose Instructions Lopressor (Metoprolol Tartrate) 25 Mg Tab 25 Mg PO BID 04/18/16 Reported PT STATES SHE ONLY TAKES THIS WHEN SHE NEEDS TO Lisinopril 10 Mg Tab 10 Mg PO QAM 04/18/16 Reported PT STATES SHE ONLY TAKES THIS WHEN SHE NEEDS TO Review of Systems 10 ROS negative. Physical Exam Date Time Temp Pulse Resp B/P (MAP) Pulse Ox O2 Delivery O2 Flow Rate FiO2 02/05/17 07:19 37.1 74 16 147/77 (100) 94 02/05/17 00:41 37.5 02/05/17 00:01 Room Air 02/04/17 23:53 37.8 82 16 150/81 (104) 91 Room Air 02/04/17 20:08 37.7 89 20 159/78 (105) 94 Room Air 8/24/17 16:30 Room Air 02/04/17 16:22 37.8 81 18 137/79 (98) 93 Room Air 02/04/17 16:07 37.7 84 16 122/64 94 02/04/17 15:30 90 Room Air 02/04/17 14:27 85 125/68 90 Room Air 02/04/17 12:40 92 137/73 93 Room Air 02/04/17 10:56 38.1 92 20 150/74 92 Room Air 02/04/17 09:40 39.5 83 95 Room Air 02/04/17 09:19 36.8 87 18 160/87 99 Room Air General Appearance: WD/WN, no apparent distress ENT: hearing grossly normal, pharynx normal Neck: supple, no adenopathy Respiratory/Chest: lungs clear, no respiratory distress Cardiovascular: regular rate, rhythm, + pertinent finding (bilateral lower extremity edema) Abdomen: normal bowel sounds, non tender, soft, no organomegaly, no pulsatile mass Extremities: normal range of motion Neurologic/Psych: carcass splitter II-XII nml as tested, alert, normal mood/affect, oriented x 3 Skin: normal color, + pertinent finding (redness bilateral lower extremity worse on right) Laboratory Results Last 24 Hours Test 02/04/17 10:00 02/04/17 10:10 02/04/17 11:15 02/04/17 15:52 White Blood Count 13.18 K/uL Red Blood Count 4.51 M/uL Hemoglobin 13.7 g/dL Hematocrit 38.4 % Mean Corpuscular Volume 85.1 fL Mean Corpuscular Hemoglobin 30.4 pg Mean Corpuscular Hemoglobin Concent 35.7 g/dl Platelet Count 164 K/uL Mean Platelet Volume 10.9 fL Neutrophils (%) (Auto) 92.4 % Lymphocytes (%) (Auto) 3.0 % Monocytes (%) (Auto) 3.9 % Eosinophils (%) (Auto) 0.2 % Basophils (%) (Auto) 0.2 % Neutrophils # (Auto) 12.19 K/uL Lymphocytes # (Auto) 0.39 K/uL Monocytes # (Auto) 0.51 K/uL Eosinophils # (Auto) 0.03 K/uL Basophils # (Auto) 0.02 K/uL RDW Standard Deviation 40.3 fL RDW Coefficient of Variation 12.8 % Immature Granulocyte % (Auto) 0.3 % Immature Granulocyte # (Auto) 0.04 K/uL Sodium Level 137 mmol/L Potassium Level 3.8 mmol/L Chloride Level 105 mmol/L Carbon Dioxide Level 25 mmol/L Anion Gap 7.0 mmol/L Blood Urea Nitrogen 12 mg/dl Creatinine 0.65 mg/dl Estimated GFR () 115.8 Estimated GFR (Non- 99.9 BUN/Creatinine Ratio 19.1 Random Glucose 90 mg/dl Calcium Level 9.1 mg/dl Total Bilirubin 0.9 mg/dl Direct Bilirubin mg/dl Aspartate Amino Transf (AST/SGOT) 23 U/L Alanine Aminotransferase (ALT/SGPT) 25 U/L Alkaline Phosphatase 53 U/L Total Protein 7.5 gm/dl Albumin 3.5 gm/dl Lipase 112 U/L Chemistry Specimen Hemolysis Bedside Lactic Acid Venous 2.75 mmol/L Urine Color YELLOW Urine Appearance CLEAR Urine pH 8.5 Urine Specific [place] 1.015 Urine Protein NEG Urine Glucose (UA) NEG Urine Ketones NEG Urine Occult Blood NEG Urine Nitrite NEG Urine Bilirubin NEG Urine Urobilinogen NEG Urine Leukocyte Esterase NEG Urine WBC (Auto) 0 /hpf Urine RBC (Auto) 0-4 /hpf Urine Hyaline Casts (Auto) 0 /lpf Urine Epithelial Cells (Auto) 5-10 /lpf Urine Bacteria (Auto) NEG Urine Test NEG Lactic Acid Level 1.8 mmol/L Test 02/04/17 16:51 02/05/17 08:14 Prothrombin Time 10.7 SECONDS Prothromb Time International Ratio 1.0 Activated Partial Thromboplast Time 28.5 SECONDS Partial Thromboplastin Ratio 1.1 Impression A/P RUQ pain--gallstones and PUD in the differential. No acute cholecystitis with neg HIDA. Check MRCP to evaluate for retained stone. If MRCP negative would do EGD to look for PUD. PPI in the meantime dilated CBD--MRCP as above gallstones--workup as above, if MRCP neg and EGD negative then consider elective cholecystectomy Other problems per hospitalist: cellulitis
[2017-02-05 08:50] LABS: MEAN CELL VOLUME 86.3 fL (80-100); MEAN CORPUSCULAR HEMOGLOBIN 29.5 pg (25-34); MEAN CORPUSCULAR HGB CONC 34.2 g/dl (32-36); MEAN PLATELET VOLUME 10.4 fL (7.4-10.4); PLATELET COUNT 127 K/uL (130-400); RED BLOOD COUNT 4.17 M/uL (4.2-5.4); WHITE BLOOD COUNT 8.38 K/uL (4.8-10.8)
[2017-02-05 09:23] LABS: BUN/CREATININE RATIO 12.9 (10-20); CALCIUM 8.6 mg/dl (8.5-10.1); CREATININE 0.58 mg/dl (0.60-1.20); POTASSIUM 3.5 mmol/L (3.5-5.1)
[2017-02-05] MEDS: METOPROLOL TARTRATE 25 MG TAB PO SCH ×2 (09:36→21:30)
[2017-02-05] MEDS: LISINOPRIL 10 MG TAB PO SCH (09:36)
[2017-02-05] MEDS: CEFTRIAXONE SOD INJ 1 GM in DEXTROSE 5% ADD-VANTAGE 50ML 50 ML IV SCH (11:01)
--- NOTE | 2017-02-05 12:41 | Surgery Consultation ---
Consultation Date of Consultation: Feb 05, 2017. Attending Physician: Dr. Judy Goetz Reason for Consultation: RUQ pain, Cholelithiasis (Jessy Dye PA-C) History of Present Illness Judy is a 56 year-old female with past medical history of hypertension and lower extremity cellulitis who presented to emergency department yesterday with complaint of bilateral lower extremity redness and pain as well as RUQ abdominal pain that began yesterday morning. Patient noticed moderate abdominal pain in the right upper side yesterday morning with associated nausea but no vomiting. Per family, states she had no appetite yesterday and didn't want to eat. Per daughter, she has been having RUQ abdominal pain for some time now especially with eating eggs. Per patient, she has never had this type of pain before. Nausea has since resolved and pain has improved since admission. She denies of having any gallbladder issues in the past. No previous abdominal surgeries. She also had fever of 104 yesterday morning. Has history of lower extremity cellulitis and she states the lower leg pain and redness is very similar to her last episode. Denies chills, night sweats, vomiting, changes in bowel habits, diarrhea, constipation, blood in stools, difficulty urinating, chest pain, shortness of breath or difficulty breathing. States she believes she has gained weight, no unintentional weight loss. She had a CT scan of abdomen and pelvis which showed gallstones and sludge, no evidence of acute cholecystitis RUQ Ultrasound showed gallstones and sludge, slightly distended gallbladder lumen, no pericholecystic fluid or gallbladder wall thickness. CBD did measure 8 mm. HIDA scan showed no cystic duct obstruction Labs on admission showed leukocytosis of 13k, today has resolved. Her LFTS, total bilirubin, and lipase within normal limits. Elevated Lactic acid of 2.75 which has resolved (Jessy Dye PA-C) Past Medical/Surgical History PMHx: 1. Hypertension 2. Lower extremity cellulitis Past Surgical History: None (Jessy Dye PA-C) Family History Patient reports no known family medical history. (Jessy Dye PA-C) Patient reports no known family medical history. (Mary Carmen Goetz M.D.) Social History Smoking Status: Never Smoker Marital Status: Housing Status: lives with family (Jessy Dye ., UGO) Allergies Coded Allergies: No Known Allergies (Unverified , 02/04/17) Home Medications Scheduled Lisinopril (Lisinopril), 10 MG PO QAM Metoprolol Tartrate (Lopressor), 25 MG PO BID Current Inpatient Medications Current Inpatient Medications Medications (Trade) Dose Ordered Sig/Holger Route Start Time Stop Time Status Last Admin Dose Admin Ioversol (Optiray 320) 125 ml UD PRN IV 02/04/17 10:00 02/08/17 09:59 Enoxaparin Sodium (Lovenox Inj) 40 mg QPM SQ 02/04/17 21:00 03/06/17 20:59 02/04/17 21:24 40 MG Acetaminophen (Tylenol Tab) 650 mg Q4H PRN PO 02/04/17 15:00 03/06/17 14:59 02/04/17 23:25 650 MG Al Hydrox/Mg Hydrox/Simethicone (Maalox Max Susp) 15 ml Q4H PRN PO 02/04/17 15:00 03/06/17 14:59 Magnesium Hydroxide (Milk Of Magnesia Susp) 30 ml Q6H PRN PO 02/04/17 15:00 03/06/17 14:59 Polyethylene (Miralax Powder Packet) 17 gm DAILY PRN PO 02/04/17 15:00 03/06/17 14:59 Ondansetron HCl (Zofran Inj) 4 mg Q6H PRN IV 02/04/17 15:00 03/06/17 14:59 Vancomycin HCl 1500 mg/Sodium Chloride 530 ml @ 200 mls/hr Q10H IV 02/04/17 23:00 02/14/17 22:59 02/05/17 08:20 200 MLS/HR Ceftriaxone Sodium 1 gm/ Dextrose 50 ml @ 100 mls/hr Q24H IV 02/05/17 10:00 02/13/17 10:29 02/05/17 11:01 100 MLS/HR Morphine Sulfate (MoRPHine SULFATE INJ) 1 mg Q3H PRN IV 02/04/17 15:00 02/18/17 14:59 Morphine Sulfate (MoRPHine SULFATE INJ) 2 mg Q3H PRN IV 02/04/17 15:00 02/18/17 14:59 02/04/17 20:16 2 MG Lisinopril (Zestril Tab) 10 mg QAM PO 02/05/17 09:00 03/07/17 08:59 02/05/17 09:36 10 MG Metoprolol Tartrate (Lopressor Tab) 25 mg BID PO 02/04/17 21:00 03/06/17 20:59 02/05/17 09:36 25 MG Sodium Chloride 1,000 ml @ 125 mls/hr Q8H IV 02/04/17 15:00 03/06/17 14:59 Future Hold 02/04/17 17:21 125 MLS/HR Vancomycin HCl (Consult) 1 ea UD PRN N/A 02/04/17 15:30 03/06/17 15:29 Pantoprazole Sodium (Protonix Tab) 40 mg QAM PO 02/06/17 09:00 03/08/17 08:59 (Jessy Dye ., PA-C) Review of Systems Constitutional: + fever, No chills, No sweats Respiratory: No cough, No shortness of breath Cardiovascular: No chest pain Abdomen: + pain, + nausea, No vomiting, No diarrhea, No constipation, No GI bleeding Genitourinary - Female: No dysuria, No urinary frequency, No urinary urgency Psychiatric: No depression symptoms Hematologic / Lymphatic: No abnormal bleeding/bruising Integumentary: + problem reported (redness of lower legs) (Jessy Dye ., PA-C) Physical Exam Date Time Temp Pulse Resp B/P (MAP) Pulse Ox O2 Delivery O2 Flow Rate FiO2 02/05/17 09:35 76 153/80 (104) 02/05/17 08:00 Room Air 02/05/17 07:19 37.1 74 16 147/77 (100) 94 02/05/17 00:41 37.5 02/05/17 00:01 Room Air 02/04/17 23:53 37.8 82 16 150/81 (104) 91 Room Air 02/04/17 20:08 37.7 89 20 159/78 (105) 94 Room Air 02/04/17 16:30 Room Air 02/04/17 16:22 37.8 81 18 137/79 (98) 93 Room Air 02/04/17 16:07 37.7 84 16 122/64 94 02/04/17 15:30 90 Room Air 02/04/17 14:27 85 125/68 90 Room Air 02/04/17 12:40 92 137/73 93 Room Air General Appearance: WD/WN, no apparent distress, + obese Head: normocephalic, atraumatic Eyes: sclerae normal ENT: hearing grossly normal Neck: trachea midline Respiratory/Chest: lungs clear, normal breath sounds, no respiratory distress, no accessory muscle use Cardiovascular: regular rate, rhythm, no murmur Abdomen/GI: soft, no organomegaly, no pulsatile mass, + tenderness (minimal tenderness in RUQ, negative Houser's sign , no rigidity, guarding, rebound, or peritonitis) Extremities/Musculoskelatal: + pertinent finding (erythema of the bilateral lower extremities, increased on RLE with nonpitting edema. No streaking or induration) Neurologic/Psych: alert, normal mood/affect, oriented x 3 Skin: warm/dry, no rash (Jessy Dye ., PA-C) Laboratory Results Last 24 Hours Test 02/04/17 15:52 02/04/17 16:51 02/05/17 08:14 Lactic Acid Level 1.8 mmol/L Prothrombin Time 10.7 SECONDS Prothromb Time International Ratio 1.0 Activated Partial Thromboplast Time 28.5 SECONDS Partial Thromboplastin Ratio 1.1 White Blood Count 8.38 K/uL Red Blood Count 4.17 M/uL Hemoglobin 12.3 g/dL Hematocrit 36.0 % Mean Corpuscular Volume 86.3 fL Mean Corpuscular Hemoglobin 29.5 pg Mean Corpuscular Hemoglobin Concent 34.2 g/dl RDW Standard Deviation 42.1 fL RDW Coefficient of Variation 13.3 % Platelet Count 127 K/uL Mean Platelet Volume 10.4 fL Sodium Level 141 mmol/L Potassium Level 3.5 mmol/L Chloride Level 109 mmol/L Carbon Dioxide Level 26 mmol/L Anion Gap 6.0 mmol/L Blood Urea Nitrogen 8 mg/dl Creatinine 0.58 mg/dl Est Creatinine Clear Calc Drug Dose 127.6 ml/min Estimated GFR () 120.3 Estimated GFR (Non- 103.8 BUN/Creatinine Ratio 12.9 Random Glucose 99 mg/dl Calcium Level 8.6 mg/dl ABD/PELVIS IV CONTRAST ONLY HISTORY: 56 years-old Female acute diffuse abdominal pain with concern for cellulitis. COMPARISON: CT abdomen and pelvis 04/18/2016 TECHNIQUE: Multiple axial CT images of the abdomen and pelvis were obtained following the administration of 94 mL Optiray 320 IV contrast. A dose lowering technique was used consistent with the principals of EVY. FINDINGS: There is minimal dependent bibasilar atelectasis. Additional groundglass opacities are present within the medial basal segment right lower lobe, also likely atelectatic change. No pneumoperitoneum. The imaged inferior cardiac chambers are unremarkable. Scattered low attenuating lesions throughout the hepatic parenchyma are too small to characterize appear unchanged suggesting hepatic cysts. These measure up to approximate 7 mm. The spleen, pancreas and right adrenal gland are unremarkable. 1.4 x 1.2 cm ovoid lesion of the left adrenal gland is unchanged suggesting adenoma, however is not diagnostic on this contrast-enhanced study. Cholelithiasis noted within a somewhat distended gallbladder lumen. No CT evidence of acute cholecystitis Probable cyst of the interpolar left kidney is seen, 0.9 cm which is unchanged. No renal calculi or hydronephrosis. Ureters are normal in caliber. Urinary bladder, uterus and adnexa are unremarkable. . The abdominal aorta measures mild atherosclerotic plaquing. There is nonspecific mild bilateral inguinal adenopathy measuring up to 1.5 x 2.3 cm on the right, previously 1.8 x 1.0 cm. Scattered nonenlarged periaortic adenopathy is seen which is nonspecific and may be reactive. There is no bowel obstruction. Colonic thyroid ecchymosis noted without CT evidence of acute diverticulitis. The appendix appears normal. Note is made of diastases recti. Small fat filled periumbilical hernia is noted with diastases 1.7 cm. Moderate intervertebral disc space narrowing and endplate spurring seen at L5-S1. IMPRESSION: 1. No acute intra-abdominal or intrapelvic abnormality identified. 2. Cholelithiasis without CT evidence of acute cholecystitis. 3. Colonic diverticulosis without CT evidence of acute diverticulitis. 4. Diastases recti with small fat filled periumbilical hernia. 5. Additional incidental findings as above. ULTRASOUND RIGHT UPPER QUADRANT ABDOMEN CLINICAL HISTORY: Right upper quadrant abdominal pain. COMPARISON STUDY: Abdominal CT dated 04/28/2016. TECHNIQUE: Real-time, grayscale, and color flow sonography of the right upper quadrant of the abdomen was performed. Images are reviewed in the transverse and longitudinal planes. FINDINGS: Liver: The liver is normal in size and echotexture. There is no intrahepatic biliary ductal dilatation. The main portal vein is patent. Gallbladder: There are shadowing calcified gallstones. The largest measures up to 1.6 cm. Sludge is noted. There is no gallbladder wall thickening or pericholecystic fluid. A sonographic Houser's sign is reportedly absent. The common bile duct is mildly dilated measuring up to 0.8 cm in diameter. Pancreas: Visualized portions of the pancreatic head and body are normal in appearance. The splenic vein is patent. Right kidney: Survey images of the right kidney demonstrate normal size and echotexture. There is no hydronephrosis. Ascites: None. IMPRESSION: 1. Cholelithiasis and biliary sludge. There is no convincing sonographic evidence of acute cholecystitis. 2. There is mild nonspecific dilatation of the common bile duct which measures up to 8 mm. Correlation with clinical findings and serum bilirubin levels will be required. HEPATOBILIARY HIDA IMAGING CLINICAL HISTORY: 56 years-old Female presenting with RUQ pain, gallstones . TECHNIQUE: Immediately following the intravenous administration of 5.5 mCi Tc-99m Choletec, dynamic anterior abdominal imaging was performed. COMPARISON: Ultrasound performed the same day.. FINDINGS: Uniform hepatic tracer accumulation is shown. Prompt intrahepatic biliary excretion is seen. The gallbladder, common bile duct, and small bowel are all visualized by 30 minutes. This appearance represents the normal sequence of biliary excretion. Prominence of the extrahepatic bile duct. IMPRESSION: 1. No evidence for cystic duct obstruction to suggest cholecystitis. (Jessy Dye ., PA-C) Assessment & Plan 56 year-old female with past medical history of hypertension and lower extremity cellulitis with RUQ pain, cholelithiasis and dilated CBD (8 mm). Per patient's family she has been having abdominal pain, mostly right upper with eating eggs. No CT or sonographic evidence of acute cholecystitis. LFTs, total bilirubin and lipase within normal limits. Leukocytosis has resolved. Negative Houser's sign on examination. - no acute surgical intervention required at this time, no evidence of acute cholecystitis - Agree with GI recommendation of MRCP to rule out CBD stone - If there is evidence of Choledocholithiasis , will need to discus with patient cholecystectomy. If there are no signs of obstruction, may require cholecystectomy however would recommend an elective cholecystectomy until cellulitis and current infection has resolved. - Will determine definitive treatment once MRCP results are back. - Continue current medical management Dr. Goetz has seen and examined patient, agrees with above. (Jessy Dye ., UGO) Patient examined and discussed with Jessy Dye PA-C. Judy Napoles is a 56 year old woman with HTN and chronic LE edema with previous cellulitis who was admitted on 02/04/17 with fever and erythema of the right lower leg. She had also been having right upper quadrant pain. Patient states she has never had this pain in the past, but her family states she avoids certain foods like eggs because they cause abdominal pain. Associated with nausea, no vomiting. Denies constipation / diarrhea, melena / hematochezia. She has never had any abdominal surgeries in the past. CT and ultrasound show gallstones and sludge, but no evidence of acute cholecystitis; CBD measures 0.7cm. HIDA scan is normal. Antibiotics were initiated last night ; she has since been afebrile and leukocytosis has resolved. She does not currently have any abdominal pain, exam is benign, negative Houser's sign. -No acute surgical intervention required at this time -Will follow for results of MRCP; if negative for distal biliary obstruction, patient can follow up as outpatient for elective cholecystectomy -Rest of care per primary team -Will continue to follow Mary Carmen Goetz MD 02/05/17 (Mary Carmen oGetz M.D.)
--- NOTE | 2017-02-05 13:40 | DIAGNOSTIC IMAGING REPORT ---
MRCP CLINICAL HISTORY: Cholelithiasis. COMPARISON STUDY: Nuclear hepatobiliary scan, abdominal CT, and abdominal ultrasound dated 02/04/2017. TECHNIQUE: Abdominal MRCP is performed utilizing various T2-weighted sequences in the axial and coronal planes. IV contrast was not administered for this examination. 3-D reformats are created and assessed. FINDINGS: The gallbladder is mildly distended. A large gallstone is seen in the region of the gallbladder neck. This measures at least 1.8 cm. No additional gallstones are identified. There is no evidence of intra or extrahepatic biliary ductal dilatation. The common bile duct is normal in caliber and measures up to 6 mm. There are no filling defects identified to suggest choledocholithiasis. The pancreatic duct is normal in caliber. The liver is mildly enlarged measuring 18.5 cm in length. Scattered hepatic cysts are noted. The spleen, pancreas, and adrenal glands are grossly normal as imaged. A 9 mm cyst is noted in the left kidney. The kidneys are normal in size and without hydronephrosis. No bowel obstruction is seen. There is no abdominal ascites. Trace pleural effusions are noted. There is a fat-containing umbilical hernia. IMPRESSION: 1. Cholelithiasis without convincing evidence of acute cholecystitis. 2. There is no intra or extrahepatic biliary ductal dilatation, and no evidence of choledocholithiasis. 3. Hepatomegaly. 4. Trace pleural effusions. Dictated: 02/05/2017 1:25 PM Transcribed: 02/05/2017 1:39 PM Valentine Electronically signed by: Toño Schultz M.D. 02/05/2017 1:49 PM Dictated Date/Time: 02/05/2017 1:25 PM
[2017-02-05] MEDS ORDERED: FENTANYL CITRATE INJ 50 MCG/1 ML 2 ML VIAL ONE (15:14)
[2017-02-05] MEDS ORDERED: PROPOFOL IV EMULSION 10 MG/ML 20 ML VIAL IV ONE (15:14)
[2017-02-05] MEDS ORDERED: LIDOCAINE HCL 2% 2 ML VIAL (20MG/ML) ONE ×2 (15:14→15:34)
--- NOTE | 2017-02-05 16:05 | Endo History and Physical ---
History & Physical Date of Service: Feb 05, 2017. Chief Complaint: RUQ pain Referring Physician: Dr Martinez History of Present Illness For EGD Past Surgical History Hx Cardiac Surgery: No Hx Abdominal Surgery: No Hx Post-Op Nausea and Vomiting: No Hx Cancer Surgery: No Hx Thoracic Surgery: No Hx Orthopedic: No Hx Urinary Tract Surgery: No Social History Smoking Status: Never Smoker Hx Substance Use: No Hx Alcohol Use: No Allergies Coded Allergies: No Known Allergies (Unverified , 02/04/17) Current Medications Reported Home Medications Medications Dose Route/Sig Max Daily Dose Days Date Category Dose Instructions Lopressor (Metoprolol Tartrate) 25 Mg Tab 25 Mg PO BID 04/18/16 Reported PT STATES SHE ONLY TAKES THIS WHEN SHE NEEDS TO Lisinopril 10 Mg Tab 10 Mg PO QAM 04/18/16 Reported PT STATES SHE ONLY TAKES THIS WHEN SHE NEEDS TO Vital Signs Weight (Kilograms): 98.900 Height (Feet): 5 Height (Inches): 5.00 Date Time Temp Pulse Resp B/P (MAP) Pulse Ox O2 Delivery O2 Flow Rate FiO2 02/05/17 15:59 38 69 20 138/62 (87) 94 Room Air 02/05/17 15:40 37.4 69 16 149/81 (103) 94 02/05/17 15:38 37.4 69 16 149/81 94 Room Air 02/05/17 09:35 76 153/80 (104) 02/05/17 08:00 Room Air 02/05/17 07:19 37.1 74 16 147/77 (100) 94 02/05/17 00:41 37.5 02/05/17 00:01 Room Air 02/04/17 23:53 37.8 82 16 150/81 (104) 91 Room Air 02/04/17 20:08 37.7 89 20 159/78 (105) 94 Room Air 02/04/17 16:30 Room Air 02/04/17 16:22 37.8 81 18 137/79 (98) 93 Room Air 02/04/17 16:07 37.7 84 16 122/64 94 Physical Exam General Appearance: + obese Respiratory/Chest: Respiratory effort: no dyspnea Cardiovascular: Heart Auscultation: RRR Abdomen: Inspection & Palpation: soft Assessment and Plan RUQ pain for EGD
--- NOTE | 2017-02-05 16:18 | Discharge Instructions ---
Endoscopy Patient Instructions Date / Procedure(s) Performed Feb 05, 2017. EGD Allergy Information Coded Allergies: No Known Allergies (Unverified , 02/04/17) Discharge Date / Findings Feb 05, 2017. Normal EGD Medication Instructions Restart Stopped Medication(s): resume meds Current Inpatient Medications Medications (Trade) Dose Ordered Sig/Holger Route Start Time Stop Time Status Last Admin Dose Admin Ioversol (Optiray 320) 125 ml UD PRN IV 02/04/17 10:00 02/08/17 09:59 Enoxaparin Sodium (Lovenox Inj) 40 mg QPM SQ 02/04/17 21:00 03/06/17 20:59 02/04/17 21:24 40 MG Acetaminophen (Tylenol Tab) 650 mg Q4H PRN PO 02/04/17 15:00 03/06/17 14:59 02/04/17 23:25 650 MG Al Hydrox/Mg Hydrox/Simethicone (Maalox Max Susp) 15 ml Q4H PRN PO 02/04/17 15:00 03/06/17 14:59 Magnesium Hydroxide (Milk Of Magnesia Susp) 30 ml Q6H PRN PO 02/04/17 15:00 03/06/17 14:59 Polyethylene (Miralax Powder Packet) 17 gm DAILY PRN PO 02/04/17 15:00 03/06/17 14:59 Ondansetron HCl (Zofran Inj) 4 mg Q6H PRN IV 02/04/17 15:00 03/06/17 14:59 Vancomycin HCl 1500 mg/Sodium Chloride 530 ml @ 200 mls/hr Q10H IV 02/04/17 23:00 02/14/17 22:59 02/05/17 08:20 200 MLS/HR Ceftriaxone Sodium 1 gm/ Dextrose 50 ml @ 100 mls/hr Q24H IV 02/05/17 10:00 02/13/17 10:29 02/05/17 11:01 100 MLS/HR Morphine Sulfate (MoRPHine SULFATE INJ) 1 mg Q3H PRN IV 02/04/17 15:00 02/18/17 14:59 Morphine Sulfate (MoRPHine SULFATE INJ) 2 mg Q3H PRN IV 02/04/17 15:00 02/18/17 14:59 02/04/17 20:16 2 MG Lisinopril (Zestril Tab) 10 mg QAM PO 02/05/17 09:00 03/07/17 08:59 02/05/17 09:36 10 MG Metoprolol Tartrate (Lopressor Tab) 25 mg BID PO 02/04/17 21:00 03/06/17 20:59 02/05/17 09:36 25 MG Sodium Chloride 1,000 ml @ 125 mls/hr Q8H IV 02/04/17 15:00 03/06/17 14:59 Future Hold 02/04/17 17:21 125 MLS/HR Vancomycin HCl (Consult) 1 ea UD PRN N/A 02/04/17 15:30 03/06/17 15:29 Pantoprazole Sodium (Protonix Tab) 40 mg QAM PO 02/06/17 09:00 03/08/17 08:59 Provider Instructions Activity Restrictions - No exercising or heavy lifting for 24 hours. - Do not drink alcohol the day of the procedure. - Do not drive a car or operate machinery until the day after the procedure. - Do not make any important decisions or sign important papers in 24 hours after the procedure. Following Day: - Return to full activity which may include returning to work/school. Diet Start your diet with liquids and light foods (jello, soup, juice, toast). Then eat your usual diet if not nauseated. Treatment For Common After Affects For mild abdominal pain, bloating, or excessive gas: - Rest - Eat lightly - Lie on right side Follow-Up Information Follow-up with as scheduled Anesthesia Information What You Should Know You have had a procedure that required some medicine to reduce anxiety and discomfort. This treatment is called moderate sedation. After receiving the treatment, you may be sleepy, but you will be able to breathe on your own. The effects of the treatment may last for several hours. Follow these instructions along with Activity/Diet recommendations noted above: * Do NOT do anything where dizziness or clumsiness would be dangerous. * Rest quietly at home today, then you can be up and about tomorrow. * Have a responsible person stay with you the rest of today. * You may have had an I.V. today. If so, you may take the dressing off later today. Recommendations Call your doctor if: * Trouble breathing * Continuous vomiting for more than 24 hours * Temperature above 101 degrees * Severe abdominal pain or bloating * Pain not relieved by pain medicine ordered * There is increased drainage or redness from any incision * A large amount of rectal bleeding greater than 2-3 tablespoons. (If you had a polyp/s removed or have hemorrhoids, a small amount of blood - from the rectum is to be expected.) * You have any unanswered questions or concerns. IN THE EVENT OF A SERIOUS EMERGENCY, GO TO THE NEAREST EMERGENCY ROOM Your discharge instructions were prepared by provider Jose Soria. Patient Instructions Signature Page Judy Napoles Patient (or Guardian) Signature/Date: I have read and understand the instructions given to me by my caregivers. Caregiver/RN/Doctor Signature/Date: The above-named patient and/or guardian has received patient instructions on this date. + Original Patient Signature Page (only) stays with chart. Please make copy for patient.
--- NOTE | 2017-02-05 16:22 | GI REPORT ---
Procedure Date: 02/05/2017 3:49 PM Procedure: Upper GI endoscopy Indications: Abdominal pain in the right upper quadrant Medicines: Propofol total dose 120 mg IV, Lidocaine 40 mg IV Complications: No immediate complications. Estimated Blood Loss: Estimated blood loss: none. Procedure: Pre-Anesthesia Assessment: - Prior to the procedure, a History and Physical was performed, and patient medications, allergies and sensitivities were reviewed. The patient's tolerance of previous anesthesia was reviewed. - The risks and benefits of the procedure and the sedation options and risks were discussed with the patient. All questions were answered and informed consent was obtained.The upper GI endoscopy was accomplished without difficulty. The patient tolerated the procedure well. Findings: The esophagus was normal. The stomach was normal. The examined duodenum was normal. Impression: - Normal esophagus. - Normal stomach. - Normal examined duodenum. - No specimens collected. Recommendation: - [facility] care. Jose Soria M.D. Jose Soria MD 02/05/2017 4:21:34 PM This report has been signed electronically. Note Initiated On: 02/05/2017 3:49 PM I attest to the content of the Intraoperative Record and orders documented therein, exceptions below
--- NOTE | 2017-02-05 16:23 | Anesthesiology Progress Note ---
Anesthesia Post Op Note Date & Time Feb 05, 2017 at 16:22 Vital Signs Pain Intensity: 0.0 Vital Signs Past 12 Hours Date Time Temp Pulse Resp B/P (MAP) Pulse Ox O2 Delivery O2 Flow Rate FiO2 02/05/17 15:59 38 69 20 138/62 (87) 94 Room Air 02/05/17 15:40 37.4 69 16 149/81 (103) 94 02/05/17 15:38 37.4 69 16 149/81 94 Room Air 02/05/17 09:35 76 153/80 (104) 02/05/17 08:00 Room Air 02/05/17 07:19 37.1 74 16 147/77 (100) 94 Notes Mental Status: alert / awake / arousable, participated in evaluation Pt Amnestic to Procedure: Yes Nausea / Vomiting: adequately controlled Pain: adequately controlled Airway Patency, RR, SpO2: stable & adequate BP & HR: stable & adequate Hydration State: stable & adequate Anesthetic Complications: no major complications apparent
[2017-02-05 17:55] LABS: BASO % 0.2 %; BASO ABS # 0.01 K/uL (0-0.2); COMPLETE YES; EOS % 0.7 %; HEMATOCRIT 33.8 % (37-47); IG% 0.4 %; LYMPH % 10.6 %; LYMPH ABS # 0.59 K/uL (1.2-3.4); MEAN CELL VOLUME 85.8 fL (80-100); MEAN CORPUSCULAR HEMOGLOBIN 30.2 pg (25-34); MEAN CORPUSCULAR HGB CONC 35.2 g/dl (32-36); MEAN PLATELET VOLUME 10.4 fL (7.4-10.4); NEUT % 84.1 %; PLATELET COUNT 109 K/uL (130-400); RED BLOOD COUNT 3.94 M/uL (4.2-5.4); WHITE BLOOD COUNT 5.54 K/uL (4.8-10.8)
[2017-02-05] MEDS: ENOXAPARIN 40 MG/0.4 ML SYR SQ SCH (21:30)
--- NOTE | 2017-02-06 04:17 | Hospitalist Progress Note ---
Hospitalist Progress Note Date of Service Feb 05, 2017. Subjective Pt evaluation today including: conversation w/ patient, conversation w/ family , physical exam Objective Vital Signs Date Time Temp Pulse Resp B/P (MAP) Pulse Ox O2 Delivery O2 Flow Rate FiO2 02/06/17 00:00 Room Air 02/05/17 23:15 37.7 73 20 147/81 (103) 93 Room Air 02/05/17 17:00 37.5 71 16 148/81 (103) 94 Room Air 02/05/17 17:00 Room Air 02/05/17 16:49 66 18 155/82 (106) 94 Room Air 02/05/17 16:34 71 16 163/68 (99) 95 Room Air 02/05/17 16:19 76 16 128/68 (88) 94 Room Air 02/05/17 15:59 38 69 20 138/62 (87) 94 Room Air 02/05/17 15:40 37.4 69 16 149/81 (103) 94 02/05/17 15:38 37.4 69 16 149/81 94 Room Air 02/05/17 09:35 76 153/80 (104) 02/05/17 08:00 Room Air 02/05/17 07:19 37.1 74 16 147/77 (100) 94 Physical Exam General Appearance: no apparent distress Eyes: normal inspection ENT: hearing grossly normal Neck: trachea midline Respiratory/Chest: lungs clear Cardiovascular: regular rate, rhythm Abdomen: normal bowel sounds Extremities: normal range of motion Laboratory Results Last 24 Hours Test 02/05/17 08:14 02/05/17 17:41 White Blood Count 8.38 K/uL 5.54 K/uL Red Blood Count 4.17 M/uL 3.94 M/uL Hemoglobin 12.3 g/dL 11.9 g/dL Hematocrit 36.0 % 33.8 % Mean Corpuscular Volume 86.3 fL 85.8 fL Mean Corpuscular Hemoglobin 29.5 pg 30.2 pg Mean Corpuscular Hemoglobin Concent 34.2 g/dl 35.2 g/dl RDW Standard Deviation 42.1 fL 42.4 fL RDW Coefficient of Variation 13.3 % 13.4 % Platelet Count 127 K/uL 109 K/uL Mean Platelet Volume 10.4 fL 10.4 fL Sodium Level 141 mmol/L Potassium Level 3.5 mmol/L Chloride Level 109 mmol/L Carbon Dioxide Level 26 mmol/L Anion Gap 6.0 mmol/L Blood Urea Nitrogen 8 mg/dl Creatinine 0.58 mg/dl Est Creatinine Clear Calc Drug Dose 127.6 ml/min Estimated GFR () 120.3 Estimated GFR (Non- 103.8 BUN/Creatinine Ratio 12.9 Random Glucose 99 mg/dl Calcium Level 8.6 mg/dl Neutrophils (%) (Auto) 84.1 % Lymphocytes (%) (Auto) 10.6 % Monocytes (%) (Auto) 4.0 % Eosinophils (%) (Auto) 0.7 % Basophils (%) (Auto) 0.2 % Neutrophils # (Auto) 4.66 K/uL Lymphocytes # (Auto) 0.59 K/uL Monocytes # (Auto) 0.22 K/uL Eosinophils # (Auto) 0.04 K/uL Basophils # (Auto) 0.01 K/uL Immature Granulocyte % (Auto) 0.4 % Immature Granulocyte # (Auto) 0.02 K/uL Assessment and Plan gerry is a pleasant 56 y/o female, with PMHx of HTN and h/o RLE cellulitis, who presented to the ED because of bilateral lower extremity pain and RUQ pain starting this AM. 1. Sepsis, unknown source- ?secondary to RLE cellulitis vs gallbladder source: - Improved source lower extremity cellulitis 2. RUQ pain: Present work up most consistent with outpatient choly. 3. HTN- STABLE: Continue Lisinopril 10 mg daily and Metoprolol 25 mg BID 4. DVT Prophylaxis: Lovenox SQ 5. Code Status: LEVEL V, DNR
[2017-02-06] MEDS ORDERED: VANCOMYCIN TROUGH SCH (04:44)
[2017-02-06 05:05] LABS: BUN/CREATININE RATIO 12.4 (10-20); CALCIUM 8.4 mg/dl (8.5-10.1); CREATININE 0.63 mg/dl (0.60-1.20); POTASSIUM 3.5 mmol/L (3.5-5.1)
[2017-02-06 05:13] LABS: ALB/GLOB RATIO 0.8 (0.9-2)
[2017-02-06 05:38] LABS: BASO % 0.2 %; BASO ABS # 0.01 K/uL (0-0.2); COMPLETE YES; EOS % 1.4 %; HEMATOCRIT 34.2 % (37-47); IG% 0.5 %; LYMPH % 14.3 %; MEAN CELL VOLUME 84.9 fL (80-100); MEAN CORPUSCULAR HEMOGLOBIN 29.3 pg (25-34); MEAN CORPUSCULAR HGB CONC 34.5 g/dl (32-36); MEAN PLATELET VOLUME 11.7 fL (7.4-10.4); MONO % 8.1 %; NEUT % 75.5 %; PLATELET COUNT 116 K/uL (130-400); RED BLOOD COUNT 4.03 M/uL (4.2-5.4); WHITE BLOOD COUNT 4.21 K/uL (4.8-10.8)
[2017-02-06] MEDS: VANCOMYCIN INJ 1,500 MG in SODIUM CHLORIDE 0.9% 500ML 500 ML IV SCH ×2 (05:43→14:16)
[2017-02-06 07:08] VITALS: BP 157/101; PULSE 64; TEMP 37.2; O2SAT 94
[2017-02-06] MEDS: METOPROLOL TARTRATE 25 MG TAB PO SCH ×2 (08:09→20:56)
[2017-02-06] MEDS: PANTOprazole SOD 40 MG TAB PO SCH (08:09)
[2017-02-06] MEDS: LISINOPRIL 10 MG TAB PO SCH (08:09)
--- NOTE | 2017-02-06 10:23 | Surgery Progress Note ---
Surgery Progress Note Date of Service Feb 06, 2017. Subjective Patient examined at bedside this morning. Afebrile, vitals stable on room air overnight, no acute events. EGD completed yesterday evening - esophagus, stomach and duodenum were found to be normal. Patient tolerated dinner last night without abdominal pain, N/V. States she did have some mild abdominal discomfort around midnight last night, but was transient. This morning she has no pain; denies N/V. Erythema of RLE continues to improve. Objective Vital Signs: Date Time Temp Pulse Resp B/P (MAP) Pulse Ox O2 Delivery O2 Flow Rate FiO2 02/06/17 07:08 37.2 64 18 157/101 (119) 94 Room Air 02/06/17 00:00 Room Air 02/05/17 23:15 37.7 73 20 147/81 (103) 93 Room Air 02/05/17 17:00 37.5 71 16 148/81 (103) 94 Room Air 02/05/17 17:00 Room Air 02/05/17 16:49 66 18 155/82 (106) 94 Room Air 02/05/17 16:34 71 16 163/68 (99) 95 Room Air 02/05/17 16:19 76 16 128/68 (88) 94 Room Air 02/05/17 15:59 38 69 20 138/62 (87) 94 Room Air 02/05/17 15:40 37.4 69 16 149/81 (103) 94 02/05/17 15:38 37.4 69 16 149/81 94 Room Air General Appearance: WD/WN, no apparent distress Head: normocephalic Neck: supple Respiratory/Chest: lungs clear, normal breath sounds Cardiovascular: regular rate, rhythm Abdomen: normal bowel sounds, non tender, non distended, soft Extremities: + inflammation (RLE between ankle and knee, improved compared to yesterday), + pedal edema Laboratory Results: Results Past 24 Hours Test 02/05/17 17:41 02/06/17 04:28 Range/Units White Blood Count 5.54 4.21 4.8-10.8 K/uL Red Blood Count 3.94 4.03 4.2-5.4 M/uL Hemoglobin 11.9 11.8 12.0-16.0 g/dL Hematocrit 33.8 34.2 37-47 % Mean Corpuscular Volume 85.8 84.9 80-100 fL Mean Corpuscular Hemoglobin 30.2 29.3 25-34 pg Mean Corpuscular Hemoglobin Concent 35.2 34.5 32-36 g/dl Platelet Count 109 116 130-400 K/uL Mean Platelet Volume 10.4 11.7 7.4-10.4 fL Neutrophils (%) (Auto) 84.1 75.5 % Lymphocytes (%) (Auto) 10.6 14.3 % Monocytes (%) (Auto) 4.0 8.1 % Eosinophils (%) (Auto) 0.7 1.4 % Basophils (%) (Auto) 0.2 0.2 % Neutrophils # (Auto) 4.66 3.18 1.4-6.5 K/uL Lymphocytes # (Auto) 0.59 0.60 1.2-3.4 K/uL Monocytes # (Auto) 0.22 0.34 0.11-0.59 K/uL Eosinophils # (Auto) 0.04 0.06 0-0.5 K/uL Basophils # (Auto) 0.01 0.01 0-0.2 K/uL RDW Standard Deviation 42.4 41.6 36.4-46.3 fL RDW Coefficient of Variation 13.4 13.4 11.5-14.5 % Immature Granulocyte % (Auto) 0.4 0.5 % Immature Granulocyte # (Auto) 0.02 0.02 0.00-0.02 K/uL Sodium Level 143 136-145 mmol/L Potassium Level 3.5 3.5-5.1 mmol/L Chloride Level 111 98-107 mmol/L Carbon Dioxide Level 27 21-32 mmol/L Anion Gap 5.0 3-11 mmol/L Blood Urea Nitrogen 8 7-18 mg/dl Creatinine 0.63 0.60-1.20 mg/dl Est Creatinine Clear Calc Drug Dose 117.5 ml/min Estimated GFR () 117.0 Estimated GFR (Non- 101.0 BUN/Creatinine Ratio 12.4 10-20 Random Glucose 107 70-99 mg/dl Calcium Level 8.4 8.5-10.1 mg/dl Total Bilirubin 0.8 0.2-1 mg/dl Aspartate Amino Transf (AST/SGOT) 57 15-37 U/L Alanine Aminotransferase (ALT/SGPT) 63 12-78 U/L Alkaline Phosphatase 139 45-117 U/L Total Protein 6.5 6.4-8.2 gm/dl Albumin 2.8 3.4-5.0 gm/dl Globulin 3.7 2.5-4.0 gm/dl Albumin/Globulin Ratio 0.8 0.9-2 Vancomycin Level Trough 16.0 SEE COMMENT mcg/ml Assessment & Plan Judy Napoles is a 56 year old woman with HTN and chronic LE edema with previous cellulitis who was admitted on 02/04/17 with fever and erythema of the right lower leg. Also has a gallstone in the gallbladder neck, symptom history consistent with symptomatic cholelithiasis. EGD completed last night was normal. -No acute surgical intervention required at this time -MRCP negative for biliary obstruction -Recommend resolving current soft tissue infection at this time, patient can follow up as outpatient to discuss elective cholecystectomy. -Diet as tolerated -Continue antibiotics for RLE infection -Rest of care per primary team -Will continue to follow Mary Carmen Goetz MD 02/06/17
[2017-02-06] MEDS: CEFTRIAXONE SOD INJ 1 GM in DEXTROSE 5% ADD-VANTAGE 50ML 50 ML IV SCH (10:40)
[2017-02-06 10:48] VITALS: BP 164/83; PULSE 70
--- NOTE | 2017-02-06 14:16 | Gastroenterology Progress Note ---
Progress Note Date of Service: Feb 06, 2017 Subjective Pt evaluation today including: conversation w/ patient, conversation w/ family ( and daughter), physical exam, chart review, lab review, review of studies, review of inpatient medication list CC f/u abd pain HPI Some abd pain RUQ last night none at present. Tolerating some of her solid diet:fruit. Review of Systems Respiratory: + shortness of breath (some last night now none) Cardiac: No chest pain Medications Current Inpatient Medications Medications (Trade) Dose Ordered Sig/Holger Route Start Time Stop Time Status Last Admin Dose Admin Ioversol (Optiray 320) 125 ml UD PRN IV 02/04/17 10:00 02/08/17 09:59 Enoxaparin Sodium (Lovenox Inj) 40 mg QPM SQ 02/04/17 21:00 03/06/17 20:59 02/05/17 21:30 40 MG Acetaminophen (Tylenol Tab) 650 mg Q4H PRN PO 02/04/17 15:00 03/06/17 14:59 02/04/17 23:25 650 MG Al Hydrox/Mg Hydrox/Simethicone (Maalox Max Susp) 15 ml Q4H PRN PO 02/04/17 15:00 03/06/17 14:59 Magnesium Hydroxide (Milk Of Magnesia Susp) 30 ml Q6H PRN PO 02/04/17 15:00 03/06/17 14:59 Polyethylene (Miralax Powder Packet) 17 gm DAILY PRN PO 02/04/17 15:00 03/06/17 14:59 Ondansetron HCl (Zofran Inj) 4 mg Q6H PRN IV 02/04/17 15:00 03/06/17 14:59 Vancomycin HCl 1500 mg/Sodium Chloride 530 ml @ 200 mls/hr Q10H IV 02/04/17 23:00 02/14/17 22:59 02/06/17 05:43 200 MLS/HR Ceftriaxone Sodium 1 gm/ Dextrose 50 ml @ 100 mls/hr Q24H IV 02/05/17 10:00 02/13/17 10:29 02/06/17 10:40 100 MLS/HR Morphine Sulfate (MoRPHine SULFATE INJ) 1 mg Q3H PRN IV 02/04/17 15:00 02/18/17 14:59 Morphine Sulfate (MoRPHine SULFATE INJ) 2 mg Q3H PRN IV 02/04/17 15:00 02/18/17 14:59 02/04/17 20:16 2 MG Lisinopril (Zestril Tab) 10 mg QAM PO 02/05/17 09:00 03/07/17 08:59 02/06/17 08:09 10 MG Metoprolol Tartrate (Lopressor Tab) 25 mg BID PO 02/04/17 21:00 03/06/17 20:59 02/06/17 08:09 25 MG Sodium Chloride 1,000 ml @ 125 mls/hr Q8H IV 02/04/17 15:00 03/06/17 14:59 Future Hold 02/04/17 17:21 125 MLS/HR Vancomycin HCl (Consult) 1 ea UD PRN N/A 02/04/17 15:30 03/06/17 15:29 Pantoprazole Sodium (Protonix Tab) 40 mg QAM PO 02/06/17 09:00 03/08/17 08:59 02/06/17 08:09 40 MG Objective Vital Signs Date Time Temp Pulse Resp B/P (MAP) Pulse Ox O2 Delivery O2 Flow Rate FiO2 02/06/17 10:48 70 164/83 (110) 02/06/17 08:00 Room Air 02/06/17 07:08 37.2 64 18 157/101 (119) 94 Room Air 02/06/17 00:00 Room Air 02/05/17 23:15 37.7 73 20 147/81 (103) 93 Room Air 02/05/17 17:00 37.5 71 16 148/81 (103) 94 Room Air 02/05/17 17:00 Room Air 02/05/17 16:49 66 18 155/82 (106) 94 Room Air 02/05/17 16:34 71 16 163/68 (99) 95 Room Air 02/05/17 16:19 76 16 128/68 (88) 94 Room Air 02/05/17 15:59 38 69 20 138/62 (87) 94 Room Air 02/05/17 15:40 37.4 69 16 149/81 (103) 94 02/05/17 15:38 37.4 69 16 149/81 94 Room Air Physical Exam General Appearance: WD/WN, no apparent distress Respiratory/Chest: normal breath sounds, no respiratory distress Cardiovascular: regular rate, rhythm, no murmur Abdomen: normal bowel sounds, non tender, soft, no organomegaly, no pulsatile mass Laboratory Results Last 24 Hours Test 02/05/17 17:41 02/06/17 04:28 White Blood Count 5.54 K/uL 4.21 K/uL Red Blood Count 3.94 M/uL 4.03 M/uL Hemoglobin 11.9 g/dL 11.8 g/dL Hematocrit 33.8 % 34.2 % Mean Corpuscular Volume 85.8 fL 84.9 fL Mean Corpuscular Hemoglobin 30.2 pg 29.3 pg Mean Corpuscular Hemoglobin Concent 35.2 g/dl 34.5 g/dl Platelet Count 109 K/uL 116 K/uL Mean Platelet Volume 10.4 fL 11.7 fL Neutrophils (%) (Auto) 84.1 % 75.5 % Lymphocytes (%) (Auto) 10.6 % 14.3 % Monocytes (%) (Auto) 4.0 % 8.1 % Eosinophils (%) (Auto) 0.7 % 1.4 % Basophils (%) (Auto) 0.2 % 0.2 % Neutrophils # (Auto) 4.66 K/uL 3.18 K/uL Lymphocytes # (Auto) 0.59 K/uL 0.60 K/uL Monocytes # (Auto) 0.22 K/uL 0.34 K/uL Eosinophils # (Auto) 0.04 K/uL 0.06 K/uL Basophils # (Auto) 0.01 K/uL 0.01 K/uL RDW Standard Deviation 42.4 fL 41.6 fL RDW Coefficient of Variation 13.4 % 13.4 % Immature Granulocyte % (Auto) 0.4 % 0.5 % Immature Granulocyte # (Auto) 0.02 K/uL 0.02 K/uL Sodium Level 143 mmol/L Potassium Level 3.5 mmol/L Chloride Level 111 mmol/L Carbon Dioxide Level 27 mmol/L Anion Gap 5.0 mmol/L Blood Urea Nitrogen 8 mg/dl Creatinine 0.63 mg/dl Est Creatinine Clear Calc Drug Dose 117.5 ml/min Estimated GFR () 117.0 Estimated GFR (Non- 101.0 BUN/Creatinine Ratio 12.4 Random Glucose 107 mg/dl Calcium Level 8.4 mg/dl Total Bilirubin 0.8 mg/dl Aspartate Amino Transf (AST/SGOT) 57 U/L Alanine Aminotransferase (ALT/SGPT) 63 U/L Alkaline Phosphatase 139 U/L Total Protein 6.5 gm/dl Albumin 2.8 gm/dl Globulin 3.7 gm/dl Albumin/Globulin Ratio 0.8 Vancomycin Level Trough 16.0 mcg/ml Assessment and Plan RUQ pain-- neg EGD so most likely from gallstones. Recommend elective cholecystectomy if patient agreeable Gallstones--as above Dilated bile duct on U/s--negative MRCP so no need for ERCP. Will sign off. Please call for further questions.
[2017-02-06 15:10] VITALS: BP 149/87; PULSE 59; TEMP 37; O2SAT 96
--- NOTE | 2017-02-06 17:33 | Pharmacy Progress Note ---
Pharmacy Antibiotic Prog Note Date of Service Feb 06, 2017. Subjective The patient is currently receiving vancomycin 1500 mg IV every 10 hours. The patient is currently on day # 310 of vancomycin and Rocephin IV therapy. Objective Height (Feet): 5 Height (Inches): 5.00 Weight (Kilograms): 98.900 Levels: Item Value Date Time Vancomycin Level Trough 16.0 mcg/ml 02/06/17 0428 Lab Results (24hrs): Test 02/05/17 17:41 02/06/17 04:28 White Blood Count 5.54 K/uL (4.8-10.8) 4.21 K/uL (4.8-10.8) Red Blood Count 3.94 M/uL (4.2-5.4) 4.03 M/uL (4.2-5.4) Hemoglobin 11.9 g/dL (12.0-16.0) 11.8 g/dL (12.0-16.0) Hematocrit 33.8 % (37-47) 34.2 % (37-47) Mean Corpuscular Volume 85.8 fL (80-100) 84.9 fL (80-100) Mean Corpuscular Hemoglobin 30.2 pg (25-34) 29.3 pg (25-34) Mean Corpuscular Hemoglobin Concent 35.2 g/dl (32-36) 34.5 g/dl (32-36) Platelet Count 109 K/uL (130-400) 116 K/uL (130-400) Mean Platelet Volume 10.4 fL (7.4-10.4) 11.7 fL (7.4-10.4) Neutrophils (%) (Auto) 84.1 % 75.5 % Lymphocytes (%) (Auto) 10.6 % 14.3 % Monocytes (%) (Auto) 4.0 % 8.1 % Eosinophils (%) (Auto) 0.7 % 1.4 % Basophils (%) (Auto) 0.2 % 0.2 % Neutrophils # (Auto) 4.66 K/uL (1.4-6.5) 3.18 K/uL (1.4-6.5) Lymphocytes # (Auto) 0.59 K/uL (1.2-3.4) 0.60 K/uL (1.2-3.4) Monocytes # (Auto) 0.22 K/uL (0.11-0.59) 0.34 K/uL (0.11-0.59) Eosinophils # (Auto) 0.04 K/uL (0-0.5) 0.06 K/uL (0-0.5) Basophils # (Auto) 0.01 K/uL (0-0.2) 0.01 K/uL (0-0.2) RDW Standard Deviation 42.4 fL (36.4-46.3) 41.6 fL (36.4-46.3) RDW Coefficient of Variation 13.4 % (11.5-14.5) 13.4 % (11.5-14.5) Immature Granulocyte % (Auto) 0.4 % 0.5 % Immature Granulocyte # (Auto) 0.02 K/uL (0.00-0.02) 0.02 K/uL (0.00-0.02) Sodium Level 143 mmol/L (136-145) Potassium Level 3.5 mmol/L (3.5-5.1) Chloride Level 111 mmol/L (98-107) Carbon Dioxide Level 27 mmol/L (21-32) Anion Gap 5.0 mmol/L (3-11) Blood Urea Nitrogen 8 mg/dl (7-18) Creatinine 0.63 mg/dl (0.60-1.20) Est Creatinine Clear Calc Drug Dose 117.5 ml/min Estimated GFR () 117.0 Estimated GFR (Non- 101.0 BUN/Creatinine Ratio 12.4 (10-20) Random Glucose 107 mg/dl (70-99) Calcium Level 8.4 mg/dl (8.5-10.1) Total Bilirubin 0.8 mg/dl (0.2-1) Aspartate Amino Transf (AST/SGOT) 57 U/L (15-37) Alanine Aminotransferase (ALT/SGPT) 63 U/L (12-78) Alkaline Phosphatase 139 U/L (45-117) Total Protein 6.5 gm/dl (6.4-8.2) Albumin 2.8 gm/dl (3.4-5.0) Globulin 3.7 gm/dl (2.5-4.0) Albumin/Globulin Ratio 0.8 (0.9-2) Vancomycin Level Trough 16.0 mcg/ml (SEE COMMENT) Micro Results: BC's X 2: NGTD Assessment & Plan Vancomycin This drug level is Therapeutic Continue vancomycin 1500 mg IV every 10 hours. Goal trough level estimate: between 15 - 20 mcg/mL for sepsis/cellulitis. Will reorder trough level in a few days if vancomycin is continued, watching for accumulation with increased BMI. Pharmacy will continue to follow and will adjust dose/frequency as necessary. Thank you
[2017-02-06 19:00] VITALS: BP 168/92; PULSE 62; TEMP 36.9; O2SAT 96
[2017-02-06] MEDS: ENOXAPARIN 40 MG/0.4 ML SYR SQ SCH (20:57)
[2017-02-06 23:48] VITALS: BP 172/93; PULSE 71; TEMP 37.4; O2SAT 95
--- NOTE | 2017-02-07 00:32 | Hospitalist Progress Note ---
Hospitalist Progress Note Date of Service Feb 06, 2017. Subjective Pt evaluation today including: conversation w/ patient, conversation w/ family patient with no complaints tolerating eating Objective Vital Signs Date Time Temp Pulse Resp B/P (MAP) Pulse Ox O2 Delivery O2 Flow Rate FiO2 02/06/17 00:00 Room Air 02/05/17 23:15 37.7 73 20 147/81 (103) 93 Room Air 02/05/17 17:00 37.5 71 16 148/81 (103) 94 Room Air 02/05/17 17:00 Room Air 02/05/17 16:49 66 18 155/82 (106) 94 Room Air 02/05/17 16:34 71 16 163/68 (99) 95 Room Air 02/05/17 16:19 76 16 128/68 (88) 94 Room Air 02/05/17 15:59 38 69 20 138/62 (87) 94 Room Air 02/05/17 15:40 37.4 69 16 149/81 (103) 94 02/05/17 15:38 37.4 69 16 149/81 94 Room Air 02/05/17 09:35 76 153/80 (104) 02/05/17 08:00 Room Air 02/05/17 07:19 37.1 74 16 147/77 (100) 94 Physical Exam General Appearance: no apparent distress Eyes: normal inspection ENT: hearing grossly normal Neck: supple, trachea midline Respiratory/Chest: lungs clear, normal breath sounds Cardiovascular: regular rate, rhythm Abdomen: normal bowel sounds, soft, + tenderness (ruq) Extremities: + inflammation Laboratory Results Last 24 Hours Test 02/05/17 08:14 02/05/17 17:41 White Blood Count 8.38 K/uL 5.54 K/uL Red Blood Count 4.17 M/uL 3.94 M/uL Hemoglobin 12.3 g/dL 11.9 g/dL Hematocrit 36.0 % 33.8 % Mean Corpuscular Volume 86.3 fL 85.8 fL Mean Corpuscular Hemoglobin 29.5 pg 30.2 pg Mean Corpuscular Hemoglobin Concent 34.2 g/dl 35.2 g/dl RDW Standard Deviation 42.1 fL 42.4 fL RDW Coefficient of Variation 13.3 % 13.4 % Platelet Count 127 K/uL 109 K/uL Mean Platelet Volume 10.4 fL 10.4 fL Sodium Level 141 mmol/L Potassium Level 3.5 mmol/L Chloride Level 109 mmol/L Carbon Dioxide Level 26 mmol/L Anion Gap 6.0 mmol/L Blood Urea Nitrogen 8 mg/dl Creatinine 0.58 mg/dl Est Creatinine Clear Calc Drug Dose 127.6 ml/min Estimated GFR () 120.3 Estimated GFR (Non- 103.8 BUN/Creatinine Ratio 12.9 Random Glucose 99 mg/dl Calcium Level 8.6 mg/dl Neutrophils (%) (Auto) 84.1 % Lymphocytes (%) (Auto) 10.6 % Monocytes (%) (Auto) 4.0 % Eosinophils (%) (Auto) 0.7 % Basophils (%) (Auto) 0.2 % Neutrophils # (Auto) 4.66 K/uL Lymphocytes # (Auto) 0.59 K/uL Monocytes # (Auto) 0.22 K/uL Eosinophils # (Auto) 0.04 K/uL Basophils # (Auto) 0.01 K/uL Immature Granulocyte % (Auto) 0.4 % Immature Granulocyte # (Auto) 0.02 K/uL Assessment and Plan gerry is a pleasant 56 y/o female, with PMHx of HTN and h/o RLE cellulitis, who presented to the ED because of bilateral lower extremity pain and RUQ pain starting this AM. 1. Sepsis, secondary to RLE cellulitis - Improved source lower extremity cellulitis 2. RUQ pain: Present work up most consistent with outpatient choly. Discussed with patient and the opportunity to pursue elective choly an follow up in surgeons office for details of tx. 3. HTN- STABLE: Continue Lisinopril 10 mg daily and Metoprolol 25 mg BID 4. DVT Prophylaxis: Lovenox SQ 5. Code Status: LEVEL V, DNR Discharge planning: home
[2017-02-07] MEDS: VANCOMYCIN INJ 1,500 MG in SODIUM CHLORIDE 0.9% 500ML 500 ML IV SCH ×3 (00:48→21:29)
[2017-02-07 06:56] LABS: HEMATOCRIT 34.9 % (37-47); MEAN CELL VOLUME 83.3 fL (80-100); MEAN CORPUSCULAR HEMOGLOBIN 29.8 pg (25-34); MEAN CORPUSCULAR HGB CONC 35.8 g/dl (32-36); MEAN PLATELET VOLUME 10.2 fL (7.4-10.4); PLATELET COUNT 145 K/uL (130-400); RED BLOOD COUNT 4.19 M/uL (4.2-5.4); WHITE BLOOD COUNT 4.66 K/uL (4.8-10.8)
[2017-02-07 07:23] LABS: BUN/CREATININE RATIO 8.1 (10-20); CALCIUM 8.6 mg/dl (8.5-10.1); CREATININE 0.52 mg/dl (0.60-1.20); POTASSIUM 3.6 mmol/L (3.5-5.1)
[2017-02-07] MEDS: LISINOPRIL 10 MG TAB PO SCH (08:01)
[2017-02-07] MEDS: PANTOprazole SOD 40 MG TAB PO SCH (08:02)
[2017-02-07] MEDS: METOPROLOL TARTRATE 25 MG TAB PO SCH ×2 (08:02→21:29)
--- NOTE | 2017-02-07 09:47 | Surgery Progress Note ---
Surgery Progress Note Date of Service Feb 07, 2017. Subjective Patient examined at bedside this morning. Afebrile, vitals stable on room air overnight, no acute events. Patient states she did not eat much yesterday due to low appetite; denies N/V. Ambulating and voiding without difficulty. RLE is much less erythematous today - patient states her daughter placed cabbage leaves on it yesterday evening. Objective Vital Signs: Date Time Temp Pulse Resp B/P (MAP) Pulse Ox O2 Delivery O2 Flow Rate FiO2 02/07/17 07:54 Room Air 02/07/17 00:00 Room Air 02/06/17 23:48 37.4 71 20 172/93 (119) 95 Room Air 02/06/17 19:00 36.9 62 18 168/92 (117) 96 Room Air 02/06/17 16:00 Room Air 02/06/17 15:10 37.0 59 20 149/87 (107) 96 Room Air 02/06/17 10:48 70 164/83 (110) General Appearance: WD/WN, no apparent distress Head: normocephalic Neck: supple Respiratory/Chest: lungs clear, normal breath sounds Cardiovascular: regular rate, rhythm Abdomen: normal bowel sounds, non distended, soft (no rebound / guarding), + tenderness (very mild RUQ tenderness to palpation) Laboratory Results: Results Past 24 Hours Test 02/07/17 06:36 Range/Units White Blood Count 4.66 4.8-10.8 K/uL Red Blood Count 4.19 4.2-5.4 M/uL Hemoglobin 12.5 12.0-16.0 g/dL Hematocrit 34.9 37-47 % Mean Corpuscular Volume 83.3 80-100 fL Mean Corpuscular Hemoglobin 29.8 25-34 pg Mean Corpuscular Hemoglobin Concent 35.8 32-36 g/dl RDW Standard Deviation 40.7 36.4-46.3 fL RDW Coefficient of Variation 13.4 11.5-14.5 % Platelet Count 145 130-400 K/uL Mean Platelet Volume 10.2 7.4-10.4 fL Sodium Level 143 136-145 mmol/L Potassium Level 3.6 3.5-5.1 mmol/L Chloride Level 111 98-107 mmol/L Carbon Dioxide Level 25 21-32 mmol/L Anion Gap 7.0 3-11 mmol/L Blood Urea Nitrogen 4 7-18 mg/dl Creatinine 0.52 0.60-1.20 mg/dl Est Creatinine Clear Calc Drug Dose 142.3 ml/min Estimated GFR () 124.7 Estimated GFR (Non- 107.6 BUN/Creatinine Ratio 8.1 10-20 Random Glucose 95 70-99 mg/dl Calcium Level 8.6 8.5-10.1 mg/dl Assessment & Plan Judy Napoles is a 56 year old woman with HTN and chronic LE edema with previous cellulitis who was admitted on 02/04/17 with fever and erythema of the right lower leg. Also has a gallstone in the gallbladder neck, symptom history consistent with symptomatic cholelithiasis. EGD was normal. -No acute surgical intervention required at this time -MRCP negative for biliary obstruction -Recommend resolving current soft tissue infection at this time, patient can follow up as outpatient to discuss elective cholecystectomy. -Diet as tolerated -Continue antibiotics for RLE infection -Rest of care per primary team -Will continue to follow Mary Carmen Goetz MD 02/07/17
[2017-02-07] MEDS: CEFTRIAXONE SOD INJ 1 GM in DEXTROSE 5% ADD-VANTAGE 50ML 50 ML IV SCH (11:00)
[2017-02-07] MEDS: ACETAMINOPHEN 325 MG TAB PO PRN (11:04)
[2017-02-07 11:36] VITALS: BP 177/92; PULSE 65; TEMP 36.9; O2SAT 96
[2017-02-07 16:25] VITALS: BP 155/85; PULSE 59; TEMP 36.9; O2SAT 97
[2017-02-07] MEDS: ENOXAPARIN 40 MG/0.4 ML SYR SQ SCH (21:30)
[2017-02-07 21:31] VITALS: PULSE 64
--- NOTE | 2017-02-07 21:39 | Hospitalist Progress Note ---
Hospitalist Progress Note Date of Service Feb 07, 2017. Subjective Pt evaluation today including: conversation w/ patient, conversation w/ family Pain: patient has left upper quadrant pain Voiding: no voiding problems, no incontinence Patient has diminished appetite but tolerating orals Medications Last Resulted CBC 02/07/17 06:36 Last Resulted BMP 02/07/17 06:36 Objective Vital Signs Date Time Temp Pulse Resp B/P (MAP) Pulse Ox O2 Delivery O2 Flow Rate FiO2 02/06/17 23:48 37.4 71 20 172/93 (119) 95 Room Air 02/06/17 19:00 36.9 62 18 168/92 (117) 96 Room Air 02/06/17 16:00 Room Air 02/06/17 15:10 37.0 59 20 149/87 (107) 96 Room Air 02/06/17 10:48 70 164/83 (110) 02/06/17 08:00 Room Air 02/06/17 07:08 37.2 64 18 157/101 (119) 94 Room Air Physical Exam General Appearance: no apparent distress ENT: hearing grossly normal Neck: trachea midline Respiratory/Chest: lungs clear Cardiovascular: regular rate, rhythm Abdomen: normal bowel sounds, non tender Extremities: normal range of motion Laboratory Results Last 24 Hours Test 02/06/17 04:28 White Blood Count 4.21 K/uL Red Blood Count 4.03 M/uL Hemoglobin 11.8 g/dL Hematocrit 34.2 % Mean Corpuscular Volume 84.9 fL Mean Corpuscular Hemoglobin 29.3 pg Mean Corpuscular Hemoglobin Concent 34.5 g/dl Platelet Count 116 K/uL Mean Platelet Volume 11.7 fL Neutrophils (%) (Auto) 75.5 % Lymphocytes (%) (Auto) 14.3 % Monocytes (%) (Auto) 8.1 % Eosinophils (%) (Auto) 1.4 % Basophils (%) (Auto) 0.2 % Neutrophils # (Auto) 3.18 K/uL Lymphocytes # (Auto) 0.60 K/uL Monocytes # (Auto) 0.34 K/uL Eosinophils # (Auto) 0.06 K/uL Basophils # (Auto) 0.01 K/uL RDW Standard Deviation 41.6 fL RDW Coefficient of Variation 13.4 % Immature Granulocyte % (Auto) 0.5 % Immature Granulocyte # (Auto) 0.02 K/uL Sodium Level 143 mmol/L Potassium Level 3.5 mmol/L Chloride Level 111 mmol/L Carbon Dioxide Level 27 mmol/L Anion Gap 5.0 mmol/L Blood Urea Nitrogen 8 mg/dl Creatinine 0.63 mg/dl Est Creatinine Clear Calc Drug Dose 117.5 ml/min Estimated GFR () 117.0 Estimated GFR (Non- 101.0 BUN/Creatinine Ratio 12.4 Random Glucose 107 mg/dl Calcium Level 8.4 mg/dl Total Bilirubin 0.8 mg/dl Aspartate Amino Transf (AST/SGOT) 57 U/L Alanine Aminotransferase (ALT/SGPT) 63 U/L Alkaline Phosphatase 139 U/L Total Protein 6.5 gm/dl Albumin 2.8 gm/dl Globulin 3.7 gm/dl Albumin/Globulin Ratio 0.8 Vancomycin Level Trough 16.0 mcg/ml Assessment and Plan gerry is a pleasant 56 y/o female, with PMHx of HTN and h/o RLE cellulitis, who presented to the ED because of bilateral lower extremity pain and RUQ pain starting this AM. 1. Sepsis, secondary to RLE cellulitis - Improved source lower extremity cellulitis continue present antibiotics and discharge the patient on 02/08/2017 on Augmentin for lower extremity cellulitis 2. RUQ pain: Present work up most consistent with outpatient choly. Today discussed with the patient and her daughter current recommendations are to pursue an elective cholecystectomy and therefore follow-up with surgery in their office to discuss the benefits of pursuing an elective cholecystectomy under the circumstances versus the risks of not having the surgery electively. 3. HTN- STABLE: Continue Lisinopril 10 mg daily and Metoprolol 25 mg BID 4. DVT Prophylaxis: Lovenox SQ 5. Code Status: LEVEL V, DNR Discharge planning: home
[2017-02-07 23:37] VITALS: BP 153/79; PULSE 67; TEMP 37.1; O2SAT 97
[2017-02-08 07:24] VITALS: BP 193/102; PULSE 61; TEMP 36.8; O2SAT 96
[2017-02-08] MEDS: METOPROLOL TARTRATE 25 MG TAB PO SCH (07:29)
[2017-02-08] MEDS: VANCOMYCIN INJ 1,500 MG in SODIUM CHLORIDE 0.9% 500ML 500 ML IV SCH (07:29)
[2017-02-08] MEDS: PANTOprazole SOD 40 MG TAB PO SCH (07:29)
[2017-02-08] MEDS: LISINOPRIL 10 MG TAB PO SCH (07:29)
[2017-02-08] MEDS: ACETAMINOPHEN 325 MG TAB PO PRN (07:31)
--- NOTE | 2017-02-08 07:47 | Surgery Progress Note ---
Surgery Progress Note Date of Service Feb 08, 2017. Subjective Patient examined at bedside this morning. Afebrile, vitals stable on room air overnight, no acute events. Feels well this morning. Tolerated regular diet yesterday without abdominal pain, N/V. No current pain. Erythema in RLE has greatly improved. Objective Vital Signs: Date Time Temp Pulse Resp B/P (MAP) Pulse Ox O2 Delivery O2 Flow Rate FiO2 02/08/17 07:24 36.8 61 19 193/102 (132) 96 Room Air 02/08/17 04:00 Room Air 02/08/17 00:00 Room Air 02/07/17 23:37 37.1 67 18 153/79 (103) 97 Room Air 02/07/17 21:31 64 02/07/17 16:25 36.9 59 18 155/85 (108) 97 Room Air 02/07/17 16:00 Room Air 02/07/17 11:36 36.9 65 17 177/92 (120) 96 02/07/17 07:54 Room Air General Appearance: WD/WN, no apparent distress Head: normocephalic Neck: supple Respiratory/Chest: lungs clear, normal breath sounds Cardiovascular: regular rate, rhythm Abdomen: normal bowel sounds, non tender, non distended, soft Extremities: + inflammation (posterior RLE with ecchymosis, erythema greatly improved) Assessment & Plan Judy Napoles is a 56 year old woman with HTN and chronic LE edema with previous cellulitis who was admitted on 02/04/17 with fever and erythema of the right lower leg. Also has a gallstone in the gallbladder neck, symptom history consistent with symptomatic cholelithiasis. EGD was normal. -No acute surgical intervention required at this time, MRCP negative for biliary obstruction -Patient can follow up as outpatient to discuss elective cholecystectomy -Rest of care per primary team Mary Carmen Goetz MD 02/08/17
[2017-02-08 08:12] VITALS: BP 181/81
[2017-02-08] MEDS ORDERED: AMOX875T PO (10:36)
[2017-02-08] MEDS: CEFTRIAXONE SOD INJ 1 GM in DEXTROSE 5% ADD-VANTAGE 50ML 50 ML IV SCH (10:43)
--- NOTE | 2017-02-08 10:46 | Discharge Instructions ---
Discharge Instructions Date of Service Feb 08, 2017. Admission Reason for Admission: Sepsis Discharge Discharge Diagnosis / Problem: Sepsis, cellulitis Discharge Goals Goal(s): Decrease discomfort, Diagnostic testing, Therapeutic intervention Activity Recommendations Activity Limitations: resume your previous activity (as tolerated) . Instructions / Follow-Up Instructions / Follow-Up You were admitted to the hospital with a severe infection, lower leg pain and abdominal pain. You were found to have a skin infection in the right lower leg that was treated with IV antibiotics. You will continue oral antibiotics at home. Your abdominal pain was worked up extensively. You were found to have gall stones, but there was no indication for surgery at this time. It is recommended that you follow up with the general surgeon in a few weeks as an outpatient for a possible elective cholecystectomy to remove the gallbladder as the gall stones were causing you pain. Medications: *Please take Augmentin 875 mg by mouth twice a day for 5 days. This is an antibiotic for your skin infection. Please take this with meals to help reduce GI upset. *Continue your other home medications as prescribed. Follow up: *Please follow up with your primary care provider within 1 week regarding your hospital stay and to ensure your infection has resolved. *Please follow up with the general surgeon, Dr. Goetz, regarding have an elective cholecystectomy. Please seek medical attention if you experience fevers, chills, sweats, dizziness/lightheadedness, loss of consciousness, chest pain, shortness of breath, nausea, vomiting, abdominal pain, numbness or tingling. Current Hospital Diet Patient's current hospital diet: Regular Diet Discharge Diet Recommended Diet: Regular Diet Procedures Procedures Performed: EGD Pending Studies Studies pending at discharge: yes List of pending studies: Final blood cultures. Preliminary results show no growth to date. Medical Emergencies . Who to Call and When: Medical Emergencies: If at any time you feel your situation is an emergency, please call 911 immediately. . Non-Emergent Contact Non-Emergency issues call your: Primary Care Provider, Surgeon Call Non-Emergent contact if: you have a fever, your pain is not controlled, your pain is worsening, your pain is unusual for you, your pain is concerning you, wound has increased redness, wound has increased pain, you have any medication questions . Past History Medical & Surgical History: (1) Cellulitis of right leg (2) Sepsis . "Provider Documentation" section prepared by Leslie Mckeon. . VTE Core Measure Inpt VTE Proph given/why not?: Enoxaparin (Lovenox)MANNY, TMiguel AngelENaga. Kristopher, SCD's
--- NOTE | 2017-02-08 11:03 | Discharge Summary ---
Discharge Summary Date of Service Feb 08, 2017. Discharge Summary Admission Date: Feb 04, 2017 at 15:03 Discharge Date: Feb 08, 2017 Discharge Disposition: Home Principal Diagnosis: Sepsis, cellulitis, symptomatic cholelithiasis Procedures: EGD: Procedure Date: 02/05/2017 3:49 PM Procedure: Upper GI endoscopy Indications: Abdominal pain in the right upper quadrant Medicines: Propofol total dose 120 mg IV, Lidocaine 40 mg IV Complications: No immediate complications. Estimated Blood Loss: Estimated blood loss: none. Procedure: Pre-Anesthesia Assessment: - Prior to the procedure, a History and Physical was performed, and patient medications, allergies and sensitivities were reviewed. The patient's tolerance of previous anesthesia was reviewed. - The risks and benefits of the procedure and the sedation options and risks were discussed with the patient. All questions were answered and informed consent was obtained.The upper GI endoscopy was accomplished without difficulty. The patient tolerated the procedure well. Findings: The esophagus was normal. The stomach was normal. The examined duodenum was normal. Impression: - Normal esophagus. - Normal stomach. - Normal examined duodenum. - No specimens collected. Recommendation: - [facility]. Consultations: GI--Dr. Martinez/Dr. Soria [facility] surgery--Dr. Goetz Medication Reconciliation New Medications: Amoxicillin & Pot Clavulanate (Augmentin 875-125 mg) 1 Tab Tab 1 TAB PO BIDM for 5 Days, #10 TAB Continued Medications: Lisinopril (Lisinopril) 10 Mg Tab 10 MG PO QAM PT STATES SHE ONLY TAKES THIS WHEN SHE NEEDS TO Metoprolol Tartrate (Lopressor) 25 Mg Tab 25 MG PO BID, TAB PT STATES SHE ONLY TAKES THIS WHEN SHE NEEDS TO Referrals At Discharge Follow up Referrals: Family Practice Referral - Within 1 Week with Yareli Briseno C.R.N.P. Surgery Referral - Within a Month with Mary Carmen Goetz M.D. Discharge Exam Patient reports feeling well. She states that the underside of her RLE is sometimes sore when touched but she otherwise denies any pain. She is tolerating a regular diet without nausea, vomiting or abdominal pain. She does complain of some shortness of breath but states this has been improving throughout her stay. She also admits to wheezing last night but denies any today. The patient denies fevers, chills, sweats, chest pain, palpitations, claudication, cough, wheezing, nausea, vomiting, abdominal pain, dysuria, hematuria, urinary retention, paralysis, weakness, numbness and tingling. Review of Systems: Constitutional: No fever, No chills, No sweats Eyes: No worsening of vision, No eye pain, No diplopia ENT: No hearing loss, No sore throat, No trouble swallowing Respiratory: + shortness of breath (improving), No cough, No wheezing Cardiovascular: No chest pain, No claudication, No palpitations Abdomen: No pain, No nausea, No vomiting Musculoskeletal: No joint pain, No muscle pain, No swelling Genitourinary - Female: No dysuria, No urinary retention, No hematuria Neurologic: No paralysis, No weakness, No numbness/tingling Integumentary: No rash, No itch, No color change Physical Exam: General Appearance: WD/WN, no apparent distress, + obese Eyes: normal inspection, PERRL, EOMI ENT: normal ENT inspection, hearing grossly normal, pharynx normal Neck: supple, no JVD, trachea midline Respiratory/Chest: chest non-tender, normal breath sounds, no respiratory distress Cardiovascular: regular rate, rhythm, no gallop, no murmur Abdomen / GI: normal bowel sounds, non tender, soft Extremities: no pedal edema, + pertinent finding (erythema posterior aspect of right lower leg, back to baseline. area TTP) Neurologic/Psychiatric: alert, normal mood/affect, oriented x 3 Skin: normal color, warm/dry, no rash Hospital Course 56 y/o female with a history of HTN and h/o RLE cellulitis who presented to the ED with bilateral lower extremity pain and RUQ pain. Sepsis secondary to cellulitis--improving - Admit to med/surg - D/C IVF - IV Vancomycin + Rocephin. Pt received 5 days of IV abx in hospital. D/c with Augmentin 875 mg PO BIDM x 5 more days. - BCx NGTD x 2 - UA negative - Lactic acid 2.75 at admission- repeat 1.8 - IV Morphine 1-2 mg q3 hrs PRN pain - Tylenol PRN for fever - Bilateral lower extremity Doppler- negative for DVT RUQ pain--resolved - CT- Cholelithiasis without CT evidence of acute cholecystitis. - RUQ US- Cholelithiasis and biliary sludge. There is no convincing sonographic evidence of acute cholecystitis. There is mild nonspecific dilatation of the common bile duct which measures up to 8 mm. Correlation with clinical findings and serum bilirubin levels will be required. - HIDA negative - GI consulted, appreciate recs: MRCP negative, no need for ERCP. EGD negative , will sign off. - General surgery consulted, appreciate recs: No acute surgical intervention. F/u as outpatient for elective cholecystectomy HTN--stable -Continue Lisinopril 10 mg PO qd and Lopressor 25 mg PO BID DVT prophylaxis -Enoxaparin 40 mg SC q24h Code Status -Level V, DO NOT RESUSCITATE Total Time Spent: Greater than 30 minutes This includes examination of the patient, discharge planning, medication reconciliation, and communication with other providers. Discharge Instructions Please refer to the electronic Patient Visit Report (Discharge Instructions) for additional information. Additional Copies To Yareli Briseno,Angelito.
[2017-02-08 11:46] VITALS: BP 181/81; PULSE 61; TEMP 36.8; O2SAT 96
== END 2017-02-08 14:40 | disposition home or self-care (01) | DRG 602 ==
LOC: C.EDB 09:18 → C.MED 15:03 → ENRESERV 15:32
PROVIDERS: ADMIT Family Medicine; ATTEND Hospitalist
PROC: 0DJ08ZZ Inspection of Upper Intestinal Tract, Via Natural or Artificial Opening Endoscopic (ICD-10-PCS; principal; 2017-02-04)
DX: L03.115 Cellulitis of right lower limb (principal); A41.9 Sepsis, unspecified organism; K80.20 Calculus of gallbladder without cholecystitis without obstruction; I10 Essential (primary) hypertension; Z66 Do not resuscitate; Z87.440 Personal history of urinary (tract) infections

== ENCOUNTER 2018-01-31 09:59 | Emergency (ER) | payer OTHER ==
[~2018-01-31 09:59] MED LIST changes: +ONDA4TAB10 SL
[2018-01-31 10:05] VITALS: TEMP 37.1; Ht 167.6 cm
[2018-01-31] MEDS ORDERED: CEFTRIAXONE SOD INJ 1 GM ADDVIAL IV STA (10:15)
[2018-01-31] MEDS ORDERED: CLINDAMYCIN 600 MG/54 ML D5W IV STA (10:15)
[2018-01-31] MEDS ORDERED: ONDANSETRON INJ 2 MG/ML 2 ML VIAL IV STA (10:23)
[2018-01-31] MEDS ORDERED: SODIUM CHLORIDE 0.9% 1000ML 1,000 ML IV STA (10:23)
[2018-01-31] MEDS ORDERED: KETOROLAC TROMETHAMINE 30 MG/ML VIAL IV STA (10:23)
--- NOTE | 2018-01-31 10:26 | EMERGENCY ROOM VISIT NOTE ---
History First contact with patient: 10:09 Chief Complaint: SKIN PROBLEM Stated Complaint: CELLULITIS CAME BACK History of Present Illness The patient is a 57 year old female who presents to the Emergency Room with complaints of rash to her right lower extremity. The patient has been admitted to the hospital for sepsis due to cellulitis in the right lower extremity previously. She reports that the rash started yesterday. She reports fevers and chills. She took ibuprofen for the chills last evening without relief. Patient reports she has been placed on antibiotics here previously and she has followed up with her primary care physician for her cellulitis in the past. Review of Systems See HPI for pertinent positives & negatives. A total of 10 systems reviewed and were otherwise negative. Past Medical/Surgical History Medical Problems: (1) Cellulitis of right lower extremity (2) Fever (3) Sepsis (4) Symptomatic cholelithiasis (5) UTI (urinary tract infection) Family History Patient reports no known family medical history. Social History Smoking Status: Never Smoker Alcohol Use: none Marital Status: Housing Status: lives with family Current/Historical Medications Scheduled Cephalexin Monohydrate (Keflex), 500 MG PO QID Ondasetron Odt (Zofran Odt), 4 MG SL Q6H Ondasetron Odt (Zofran Odt), 4 MG SL Q6H Sulfa/Trimethoprim (Bactrim Ds 800MG/160MG), 1 TAB PO BID Physical Exam Vital Signs Date Time Temp Pulse Resp B/P (MAP) Pulse Ox O2 Delivery O2 Flow Rate FiO2 01/31/18 12:22 83 16 146/72 94 Room Air 01/31/18 10:05 37.1 85 16 146/87 95 Room Air Physical Exam GENERAL: Awake, alert, well-appearing, in no acute distress HENT: Normocephalic, atraumatic. Oropharynx unremarkable. EYES: Normal conjunctiva. Sclera non-icteric. NECK: Supple. No nuchal rigidity. FROM. No JVD. RESPIRATORY: Clear to auscultation. CARDIAC: Regular rate, normal rhythm. Extremities warm and well perfused. Pulses equal. ABDOMEN: Soft, non-distended. No tenderness to palpation. No rebound or guarding. No masses. RECTAL: Deferred. MUSCULOSKELETAL: Chest examination reveals no tenderness. The back is symmetrical on inspection without obvious abnormality. There is no CVA tenderness to palpation. No joint edema. LOWER EXTREMITIES: Calves are equal size bilaterally and non-tender. Pt has a 6 " by 4" area of cellulitis that extends circumferentially around the calf. The cellulitis runs from the patients ankle to midway up the calf. It has been marked with marker by family. NEURO: Normal sensorium. No sensory or motor deficits noted. SKIN: No rash or jaundice noted. Medical Decision & Procedures ER Provider Diagnostic Interpretation: ULTRASOUND R VENOUS DOPP LOWER EXT UNILAT CLINICAL HISTORY: Right leg swelling COMPARISON STUDY: November 21, 2017 FINDINGS: Real-time and color flow Doppler imaging were performed. Flow was seen within the femoral, popliteal and calf veins with no intraluminal thrombus demonstrated. The saphenous vein is patent. IMPRESSION: No evidence of right lower extremity DVT. Laboratory Results 01/31/18 10:30 Red Blood Count 4.75, Mean Corpuscular Volume 85.3, Mean Corpuscular Hemoglobin 29.7, Mean Corpuscular Hemoglobin Concent 34.8, Mean Platelet Volume 10.5, Neutrophils (%) (Auto) 93.6, Lymphocytes (%) (Auto) 3.7, Monocytes (%) (Auto) 2.3, Eosinophils (%) (Auto) 0.0, Basophils (%) (Auto) 0.1, Neutrophils # (Auto) 13.95, Lymphocytes # (Auto) 0.55, Monocytes # (Auto) 0.35, Eosinophils # (Auto) 0.00, Basophils # (Auto) 0.01 01/31/18 10:30 Test 01/31/18 10:30 01/31/18 10:46 White Blood Count 14.90 K/uL (4.8-10.8) Red Blood Count 4.75 M/uL (4.2-5.4) Hemoglobin 14.1 g/dL (12.0-16.0) Hematocrit 40.5 % (37-47) Mean Corpuscular Volume 85.3 fL (80-100) Mean Corpuscular Hemoglobin 29.7 pg (25-34) Mean Corpuscular Hemoglobin Concent 34.8 g/dl (32-36) Platelet Count 171 K/uL (130-400) Mean Platelet Volume 10.5 fL (7.4-10.4) Neutrophils (%) (Auto) 93.6 % Lymphocytes (%) (Auto) 3.7 % Monocytes (%) (Auto) 2.3 % Eosinophils (%) (Auto) 0.0 % Basophils (%) (Auto) 0.1 % Neutrophils # (Auto) 13.95 K/uL (1.4-6.5) Lymphocytes # (Auto) 0.55 K/uL (1.2-3.4) Monocytes # (Auto) 0.35 K/uL (0.11-0.59) Eosinophils # (Auto) 0.00 K/uL (0-0.5) Basophils # (Auto) 0.01 K/uL (0-0.2) RDW Standard Deviation 42.6 fL (36.4-46.3) RDW Coefficient of Variation 13.7 % (11.5-14.5) Immature Granulocyte % (Auto) 0.3 % Immature Granulocyte # (Auto) 0.04 K/uL (0.00-0.02) Anion Gap 7.0 mmol/L (3-11) Estimated GFR () 108.5 Estimated GFR (Non- 93.6 BUN/Creatinine Ratio 11.5 (10-20) Calcium Level 9.5 mg/dl (8.5-10.1) Bedside Lactic Acid Venous 0.95 mmol/L (0.90-1.70) Medications Administered Medications (Trade) Dose Ordered Sig/Holger Route Start Time Stop Time Status Last Admin Dose Admin Ceftriaxone Sodium (Rocephin Inj) 1 gm NOW STAT IV 01/31/18 10:15 01/31/18 10:16 DC 01/31/18 10:40 1 GM Sodium Chloride 1,000 ml @ 999 mls/hr Q1H1M STAT IV 01/31/18 10:23 01/31/18 11:23 DC 01/31/18 10:42 999 MLS/HR Ketorolac Tromethamine (Toradol Inj) 30 mg NOW STAT IV 01/31/18 10:23 01/31/18 10:24 DC 01/31/18 10:42 30 MG Ondansetron HCl (Zofran Inj) 4 mg NOW STAT IV 01/31/18 10:23 01/31/18 10:24 DC 01/31/18 10:40 4 MG Trimethoprim/ Sulfamethoxazole (Septra Ds 800/ 160MG Tab) 1 tab NOW STAT PO 01/31/18 11:12 01/31/18 11:13 DC 01/31/18 11:16 1 TAB Potassium Chloride (Klor-Con M10) 40 meq STK-MED ONCE .ROUTE 01/31/18 12:14 01/31/18 12:15 DC 01/31/18 12:16 40 MEQ Medical Decision This is a 57-year-old female who has a history of cellulitis in the past who presents to the emergency department complaining of right lower extremity cellulitis. The cellulitis only extends long term up the patient's calf. She was sent for an ultrasound which does not show any evidence of a DVT. The patient was started on both Rocephin as well as Bactrim. Repeat examination revealed improvement in the patient's symptoms. Patient was also given Toradol as well as Tylenol here in the emergency department. I do feel she can be safely discharged home however I stressed the need to return if the rash worsens. Patient and family were in agreement with the treatment plan. Impression Primary Impression: Cellulitis of right leg Departure Information Dispostion Home / Self-Care Condition GOOD Prescriptions Ondasetron Odt (ZOFRAN ODT) 4 Mg Tab 4 MG SL Q6H for Nausea, #6 TAB Prov: Lalit Schaeffer MD 01/31/18 Cephalexin Monohydrate (KEFLEX) 500 Mg Cap 500 MG PO QID for 10 Days, #40 CAP Prov: Lalit Schaeffer MD 01/31/18 Sulfa/Trimethoprim (Bactrim Ds 800MG/160MG) Tab 1 TAB PO BID for 10 Days, #20 TAB Prov: Lalit Schaeffer MD 01/31/18 Referrals Maral Cash C.R.N.Asha (PCP) Patient Instructions My [facility]
[2018-01-31 11:01] LABS: BASO % 0.1 %; BASO ABS # 0.01 K/uL (0-0.2); HEMATOCRIT 40.5 % (37-47); HEMOGLOBIN 14.1 g/dL (12.0-16.0); IG# 0.04 K/uL (0.00-0.02); LYMPH % 3.7 %; LYMPH ABS # 0.55 K/uL (1.2-3.4); MEAN CELL VOLUME 85.3 fL (80-100); MEAN CORPUSCULAR HEMOGLOBIN 29.7 pg (25-34); MEAN CORPUSCULAR HGB CONC 34.8 g/dl (32-36); MEAN PLATELET VOLUME 10.5 fL (7.4-10.4); MONO % 2.3 %; MONO ABS # 0.35 K/uL (0.11-0.59); NEUT % 93.6 %; NEUT ABS # 13.95 K/uL (1.4-6.5); PLATELET COUNT 171 K/uL (130-400); RED CELL DISTRIBUTION WIDTH CV 13.7 % (11.5-14.5); RED CELL DISTRIBUTION WIDTH SD 42.6 fL (36.4-46.3)
[2018-01-31] MEDS ORDERED: SULFAMETHOXAZOLE/TRIMETHOPRIM DS 800/160MG TAB PO STA (11:12)
[2018-01-31 11:35] LABS: BLOOD UREA NITROGEN 8 mg/dl (7-18); CALCIUM 9.5 mg/dl (8.5-10.1); CARBON DIOXIDE 27 mmol/L (21-32); CREATININE 0.72 mg/dl (0.60-1.20); GLUCOSE 104 mg/dl (70-99); POTASSIUM 3.4 mmol/L (3.5-5.1); SODIUM 138 mmol/L (136-145)
[2018-01-31] MEDS ORDERED: POTASSIUM CHLORIDE 20 MEQ TABCR PO STA (11:42)
--- NOTE | 2018-01-31 11:53 | DIAGNOSTIC IMAGING REPORT ---
ULTRASOUND R VENOUS DOPP LOWER EXT UNILAT CLINICAL HISTORY: Right leg swelling COMPARISON STUDY: November 21, 2017 FINDINGS: Real-time and color flow Doppler imaging were performed. Flow was seen within the femoral, popliteal and calf veins with no intraluminal thrombus demonstrated. The saphenous vein is patent. IMPRESSION: No evidence of right lower extremity DVT. Electronically signed by: Yung Little M.D. 01/31/2018 11:51 AM Dictated Date/Time: 01/31/2018 11:51 AM
[2018-01-31] MEDS ORDERED: POTASSIUM CHLORIDE 10 MEQ TABCR ONE (12:14)
[2018-01-31 12:22] VITALS: BP 146/72; PULSE 83; O2SAT 94
[2018-01-31] MEDS ORDERED: SULF800T23 PO (12:39)
[2018-01-31] MEDS ORDERED: CEPH500C2 PO (12:39)
[2018-01-31] MEDS ORDERED: ONDA4TAB10 SL (12:41)
== END 2018-01-31 12:48 | disposition home or self-care (01) ==
LOC: C.EDB 10:03
DX: L03.115 Cellulitis of right lower limb (principal)

== ENCOUNTER 2022-02-28 22:43 | Inpatient (IN) ==
[2022-02-28 23:16] LABS: Basophils # (auto) 0.04 K/uL (0-0.2); Basophils % (auto) 0.3 %; Eosinophils # (auto) 0.04 K/uL (0-0.50); Eosinophils % (auto) 0.3 %; Hematocrit (blood only) 38.1 % (34.1-44.9); Hemoglobin 13.2 g/dl (12.0-16.0); Immature Granulocytes # (auto) 0.07 K/uL (0.00-0.02); Immature Granulocytes % (auto) 0.5 %; Lymphocytes # (auto) 2.83 K/uL (1.2-3.4); Lymphocytes % (auto) 21.5 %; Mean Corpuscular Hemoglobin 28.6 pg (25.0-34.0); Mean Corpuscular Hgb Conc 34.6 g/dL (32.0-36.0); Mean Corpuscular Volume 82.6 fL (80.0-100.0); Mean Platelet Volume 10.1 fL (9.4-12.3); Monocytes # (auto) 0.64 K/uL (0.24-0.82); Monocytes % (auto) 4.9 %; Neutrophils # (auto) 9.52 K/uL (1.4-6.5); Neutrophils % (auto) 72.5 %; Platelet Count 147 K/uL (130-400); RDW Coefficient of Variation 13.2 % (11.5-14.5); RDW Standard Deviation 39.6 fL (36.4-46.3); Red Blood Count 4.61 M/uL (3.93-5.22); White Blood Count 13.14 K/ul (4.8-10.8)
[2022-02-28 23:37] LABS: Anion Gap 10 (3-11); BUN Creatinine Ratio 29.6 (10-20); Blood Urea Nitrogen 16 mg/dl (6-23); Calcium 9.3 mg/dl (8.5-10.1); Carbon Dioxide 23 mmol/L (21-32); Chloride 101 mmol/L (98-107); Est GFR (African American) 118.9 ml/min; Est GFR (Non-African American) 102.6 ml/min; Glucose 136 mg/dl (70-99(Fasting)); Potassium 3.4 mmol/L (3.5-5.1); Sodium 134 mmol/L (136-145)
[2022-03-01] MEDS ORDERED: ACETAMINOPHEN 500 MG TAB PO STA (00:24)
[2022-03-01] MEDS ORDERED: SODIUM CHLORIDE 0.9% 1000ML 1,000 ML IV SCH ×2 (00:25→05:12)
--- NOTE | 2022-03-01 00:36 | Emergency Department Note ---
Impression & Plan Cellulitis of right leg ED Provider Note CHIEF COMPLAINT: Right ankle pain, redness and swelling HISTORY OF PRESENT ILLNESS: Judy Napoles is a 61 year old female with history of cellulitis, sepsis, HTN, among others listed below who presents to the Emergency Department for evaluation of pain, redness and swelling to her right ankle radiating into her cortez which has been worsening since yesterday. The patient states that her symptoms feel similar to when she previously had cellulitis several years ago and states that she did have to stay in the hospital for IV antibiotics for a week at that time. She also associates headache, fevers/chills, generalized abdominal pain and nausea which have been ongoing since yesterday as well. Currently, she rates her discomfort as an 8/10 which worsens to palpation of her ankle. She did have some mild improvement after taking Advil. The patient otherwise denies having chest pain, respiratory difficulties, vomiting, diarrhea or urinary symptoms. She denies sustaining recent injuries or wounds to her ankle or cortez. No other acute complaints. REVIEW OF SYSTEMS: 10 systems were reviewed and were negative unless otherwise stated in HPI as above PHYSICAL EXAM: VITALS: Vitals are noted on the nurse's note and reviewed by myself. Hyperten sive, additional vital signs stable. General: Resting in bed, no acute distress HEENT: Normocephalic, PERRL, EOMI, mucous membranes moist, oropharynx clear without erythema, edema or exudates Neck: Supple, no lymphadenopathy, non-tender, ROM intact without pain Resp: Good inspiratory effort on room air, lung sounds clear bilaterally CV: Regular rate and rhythm, normal S1-S2, peripheral pulses palpated Back: Non-tender to palpation Abd: Soft, non-distended, mild tenderness to palpation generally about the abdomen. No rebound, guarding or rigidity MSK/Integumentary: 1+ non-pitting edema to the BLE. Additional edema and erythema noted over the right lateral ankle extending into the anterior cortez with tenderness and warmth to palpation. Sensation and d/p pulse intact. Continues with FROM, though notes pain with plantar/dorsiflexion. No other outward signs of trauma or skin changes, moving all other extremities without apparent pain or difficulty Neuro: Awake, alert and oriented x 3, interacting and answering questions appropriately Differential diagnosis includes Cellulitis, abscess, MRSA infection, DVT, necrotizing fasciitis, dermatitis, drug eruption, allergic reaction, as well as other pathologies. EMERGENCY DEPARTMENT COURSE: Physical exam and history were performed. Nursing triage notes, EMR, and medication list were personally reviewed. Patient appears to have pain, redness and swelling to her right ankle radiating into her cortez which has been worsening since yesterday. She also associates headache, fever/chills, generalized abdominal pain and nausea. Additional history as described above. See physical exam as noted above. The patient was offered medication. IV access was established and she was given NSS 1 L and Tylenol 1000 mg. Labs were obtained and reviewed by myself as below. Of note, leukocytosis with a WBC of 13.14. No concern for anemia with hemoglobin 13.2. No emergent electrolyte abnormalities. Renal indices stable. ESR was not elevated at 23, procalcitonin was not elevated at 0.13. CRP was elevated at 1.43. Blood cultures were also obtained and are pending. X-rays of the right ankle were obtained and reviewed by radiologist myself as below. There was soft tissue swelling within the right ankle. No underlying bony destruction. 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 Upon reevaluation, the patient was doing well. I discussed the results the above findings with her at bedside. Exam findings and work-up are concerning for cellulitis of the right lower extremity. Given her leukocytosis and symptoms of feeling generally unwell, I do feel that she would benefit from continued management in the hospital for IV antibiotics. She was started on cefepime and vancomycin. I did contact Dr. Ramirez of the [facility] hospitalist group. He agreed to evaluate the patient. Please see his dictation for further plan and disposition thereafter. The patient verbalized understanding and agreement with the treatment plan as above. The chart was completed utilizing [employer] Speech Voice Recognition Software. Grammatical errors, random word insertions, pronoun errors, and incomplete sentences are an occasional consequence of this system due to software limitations, ambient noise, and hardware issues. Any formal questions or concerns about the content, text, or information contained within the body of this dictation should be directly addressed to the provider for clarification. Past Med/Surg History Medical History (Updated 03/01/22 @ 09:05 by Lupe Ochoa PA-C) Cellulitis of right leg Common bile duct dilation Elevated lactic acid level HTN (hypertension) Sepsis Symptomatic cholelithiasis UTI (urinary tract infection) Family History Other Gallbladder disease Lung disease Seizure Social History Smoking Status: Never smoker Second Hand Exposure: No; Do You Dip or Chew Tobacco: No; Tobacco Cessation Education Requested by Patient: No Hx Alcohol Use: No Hx Substance Use: No Preferred Language: Cymraes Communication Ability: Effective Door Slinger Required: No Beliefs That Will Affect Care: None marital status: Current Living Situation: Spouse Current Living Situation Comment: and children Other Information That Helps Us Care for You: No Feels Safe at Home: Yes Safety Concerns: Feels Safe At This Time Assistive Devices: Denture - Upper, Denture - Lower and Glasses Allergies Allergies Allergy/AdvReac Type Severity Reaction Status Date / Time No Known Allergies Allergy Verified 12/02/20 09:46 Home Meds Home Medications Medication Instructions Recorded Confirmed No Known Home Medications 06/28/20 12/02/20 Results & Data (ED) Vital Signs Vital Signs - 24 hr 02/28/22 22:48 02/28/22 22:44 03/01/22 00:44 Temperature 37.1 C 37.8 C H Temperature Source Temporal Artery Scan Oral Pulse Rate 87 Pulse Rate [Finger] 98 H 91 H Pulse Rhythm [Finger] Regular Regular Pulse Strength [Finger] Normal Respiratory Rate 20 16 16 Respiratory Effort / Characteristics Non-Labored Spontaneous Non-Labored Non-Labored Respiratory Depth Normal Normal Normal Respiratory Pattern Regular Blood Pressure 152/72 H Blood Pressure [Right Arm] 139/65 142/64 H Blood Pressure Mean 98 Blood Pressure Mean [Right Arm] 89 90 Blood Pressure Position Sitting Blood Pressure Position [Right Arm] Lying Pulse Oximetry 96 93 94 Oxygen Delivery Method Room Air Room Air Room Air Sepsis Recent Fever Within 48 Hours Yes Sepsis New/Unexplained Change in Mental Status N/A Sepsis Action Taken by Nursing No Action Required Laboratory Data Result diagrams: 02/28/22 23:02 02/28/22 23:02 Lab Results 02/28/22 02/28/22 02/28/22 Range/Units 23:02 23:02 23:02 WBC 13.14 H (4.8-10.8) K/ul RBC 4.61 (3.93-5.22) M/uL Hgb 13.2 (12.0-16.0) g/dl Hct 38.1 (34.1-44.9) % MCV 82.6 (80.0-100.0) fL MCH 28.6 (25.0-34.0) pg MCHC 34.6 (32.0-36.0) g/dL RDW Std Deviation 39.6 (36.4-46.3) fL RDW Coeff of Jerry 13.2 (11.5-14.5) % Plt Count 147 (130-400) K/uL MPV 10.1 (9.4-12.3) fL Immature Gran % (Auto) 0.5 % Neut % (Auto) 72.5 % Lymph % (Auto) 21.5 % [place] % (Auto) 4.9 % Eos % (Auto) 0.3 % Baso % (Auto) 0.3 % Neut # (Auto) 9.52 H (1.4-6.5) K/uL Lymph # (Auto) 2.83 (1.2-3.4) K/uL [place] # (Auto) 0.64 (0.24-0.82) K/uL Eos # (Auto) 0.04 (0-0.50) K/uL Baso # (Auto) 0.04 (0-0.2) K/uL Immature Gran # (Auto) 0.07 H (0.00-0.02) K/uL ESR 23 (0-30) mm/hr Sodium 134 L (136-145) mmol/L Potassium 3.4 L (3.5-5.1) mmol/L Chloride 101 (98-107) mmol/L Carbon Dioxide 23 (21-32) mmol/L Anion Gap 10 (3-11) BUN 16 (6-23) mg/dl Creatinine 0.54 L (0.6-1.2) mg/dl Est Cr Clr Drug Dosing Not Reportable Est GFR ( Amer) 118.9 ml/min Est GFR (Non-Af Amer) 102.6 ml/min BUN/Creatinine Ratio 29.6 H (10-20) Glucose 136 H (70-99(Fasting)) mg/dl Calcium 9.3 (8.5-10.1) mg/dl C-Reactive Protein 1.43 H (0-0.5) mg/dl Procalcitonin (0-0.5) ng/ml 02/28/22 Range/Units 23:02 WBC (4.8-10.8) K/ul RBC (3.93-5.22) M/uL Hgb (12.0-16.0) g/dl Hct (34.1-44.9) % MCV (80.0-100.0) fL MCH (25.0-34.0) pg MCHC (32.0-36.0) g/dL RDW Std Deviation (36.4-46.3) fL RDW Coeff of Jerry (11.5-14.5) % Plt Count (130-400) K/uL MPV (9.4-12.3) fL Immature Gran % (Auto) % Neut % (Auto) % Lymph % (Auto) % [place] % (Auto) % Eos % (Auto) % Baso % (Auto) % Neut # (Auto) (1.4-6.5) K/uL Lymph # (Auto) (1.2-3.4) K/uL [place] # (Auto) (0.24-0.82) K/uL Eos # (Auto) (0-0.50) K/uL Baso # (Auto) (0-0.2) K/uL Immature Gran # (Auto) (0.00-0.02) K/uL ESR (0-30) mm/hr Sodium (136-145) mmol/L Potassium (3.5-5.1) mmol/L Chloride (98-107) mmol/L Carbon Dioxide (21-32) mmol/L Anion Gap (3-11) BUN (6-23) mg/dl Creatinine (0.6-1.2) mg/dl Est Cr Clr Drug Dosing Est GFR ( Amer) ml/min Est GFR (Non-Af Amer) ml/min BUN/Creatinine Ratio (10-20) Glucose (70-99(Fasting)) mg/dl Calcium (8.5-10.1) mg/dl C-Reactive Protein (0-0.5) mg/dl Procalcitonin 0.13 (0-0.5) ng/ml Administered Medications Acetaminophen (Acetaminophen 500 Mg Tab) 1,000 mg PO Q8H LUIZ Stop: 03/31/22 04:29 Last Admin: 03/01/22 08:27 Dose: 1,000 mg Documented By: KRYSTENM Sodium Chloride (Nss 1000ml) 1,000 mls @ 100 mls/hr IV .Q10H LUIZ Stop: 03/01/22 14:17 Last Admin: 03/01/22 06:01 Dose: 125 mls/hr Documented By: KEYANNAT Discontinued Medications Acetaminophen (Acetaminophen 500 Mg Tab) 1,000 mg PO NOW STA Stop: 03/01/22 00:25 Last Admin: 03/01/22 00:57 Dose: 1,000 mg Documented By: SERGEI Sodium Chloride (Nss 1000ml) 1,000 mls @ 999 mls/hr IV .Q1H1M LUIZ Stop: 03/01/22 01:25 Last Infusion: 03/01/22 03:42 Dose: 0 mls/hr Documented By: Admin: 03/01/22 00:58 Dose: 999 mls/hr Documented By: SERGEI Cefepime HCl (Maxipime) 2,000 mg in 20 mls @ 5 mls/min IV NOW STA; Protocol Stop: 03/01/22 01:28 Last Admin: 03/01/22 02:28 Dose: 5 mls/min Documented By: SERGEI Vancomycin HCl 2,000 mg/ (Sodium Chloride) 540 mls @ 200 mls/hr IV NOW ONE Stop: 03/01/22 04:10 Last Infusion: 03/01/22 05:51 Dose: 0 mls/hr Documented By: Admin: 03/01/22 02:33 Dose: 200 mls/hr Documented By: SERGEI Sodium Chloride (Nss) 500 mls @ 80 mls/hr IV .Q6H15M [facility]1983 Stop: 03/31/22 03:59 Last Admin: 03/01/22 05:37 Dose: Not Given Documented By: LILLIE Imaging Data Radiologist's Impression: Ankle X-Ray 03/01/22 00:23 RIGHT ANKLE 3 VIEWS HISTORY: Right ankle redness/swelling, pain COMPARISON: None. FINDINGS: There is no fracture or dislocation. There is diffuse soft tissue swelling. No underlying bony destruction. Plantar and posterior calcaneal spurs are noted. Mild osteoarthritis at the tibiotalar joint demonstrated by mild joint space narrowing and small areas of subchondral cystic change at the distal tibia. No radiopaque foreign bodies. IMPRESSION: 1. Soft tissue swelling within the right ankle. No underlying bony destruction. 2. 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 ACT 112: Negative or not required by law. Electronically signed by: Jose Antonio Hills M.D. 03/01/2022 8:12 AM Discharge Plan Visit Data Chief Complaint: Leg Injury/Pain Stated Complaint: CELLULITIS, FEVER, HIGH BP, SWOLLEN LEG ED Provider: Mara Rivera ED Midlevel Provider: Lupe Ochoa Discharge Problem: Cellulitis of right leg Patient Disposition: Admitted As Inpatient Discharge Instructions Interventions: ED Discharge Assessment Last Done: 03/01/22 04:58
[2022-03-01 01:07] LABS: C Reactive Protein 1.43 mg/dl (0-0.5)
[2022-03-01] MEDS ORDERED: CEFEPIME 2,000 MG/20 ML VIAL IV STA (01:25)
[2022-03-01] MEDS ORDERED: VANCOMYCIN CONSULT ACTIVE PRN ×2 (01:29→05:12)
[2022-03-01] MEDS ORDERED: VANCOMYCIN HCL 2,000 MG in SODIUM CHLORIDE 0.9% 500 ML IV ONE (01:29)
[2022-03-01 01:53] LABS: Influenza A virus by PCR Negative (Neg); Influenza B virus by PCR Negative (Neg); RSV by PCR Negative (Neg); SARS CoV2 RNA(COVID-19) InHosp NEGATIVE (Negative)
--- NOTE | 2022-03-01 03:15 | History & Physical Report ---
Date of Service March 01, 2022 Assessment & Plan (1) Cellulitis of right leg: Plan: This is a 61-year-old female with a history of RLE cellulitis (previously requiring CFTX, vanc, and clinda) who presented to [facility] for evaluation of an erythematous rash along her distal RLE and fevers/chills, concerning for cellulitis. She technically met sepsis criteria upon admission for HR > 90, leukocytosis > 12k. She is hemodynamically stable. RLE Cellulitis / Sepsis secondary to Cellulitis - - Examination of distal RLE concerning for rapidly progressing cellulitis (evolved over 1-2 days w/ constitutional symptoms) -- area was outlined - On admission, WBCs at 13 with left shift, elevated CRP though normal ESR/procal - Ankle XR not demonstrating free air, obvious bony abnormalities - appreciate final radiology read - Continue cefepime and vancomycin given rapid progressing / pending clinical improvement - Scheduled Tylenol; Toradol for breakthrough pain - Recheck CBCd, procalcitonin, and CRP in the AM ; will add on A1c - Consider MRI +/- Doppler if clinical and diagnostic appearance are worsening Reviewed 2015 ID consult - previously required CFTX/Vancomycin/Clindamycin (2) Sepsis: Plan: As above (3) Abdominal pain: Plan: - Patient reporting 1-day worth of reproducible, mild epigastric abdominal pain that also happened prior to her last bout of cellulitis - not associated w/ n/v/d. Much improved since admission / hydration. - Possibly dyspepsia or from systemic inflammation? - Low suspicion for cardiac but will check trop/ECG - Monitor. If worsening --> CT-A/P Plan Code: DNR/DNI PPX: Lovenox Diet: Regular Fluids: NSS 500cc @ 80cc/hr x 1 - consider more PRN Dispo: MS History of Present Illness Primary Care Provider: MONICA Fam This is a 61-year-old female with a history of RLE cellulitis (previously requiring CFTX, vanc, and clinda) who presented to [facility] for evaluation of R ankle discomfort. Patient stated that beginning several days ago, she began developing redness and swelling within the right ankle. No known triggers or injuries or recent wounds on the foot/ankle. She noted to her ED provider at that it felt very similar to her prior episode of cellulitis, which was also on the RLE but more along the posterior calf. She does endorse sensation of fevers and chills, as well as headache since yesterday. She also endorses some mild abdominal pain. Denies nausea, vomiting, chest pain, palpitations, SOB. Denies history of blood clots or MRSA. She denies being on home medications. NKDA. Denies alcohol or tobacco use. In the ED, she was found to have a mildly elevated pulse at 98, and an admission temperature of 37.8. Her admission labs demonstrated a white count of 13 with left shift, mild hyponatremia 134, mild hypokalemia 3.4, ESR normal, CRP 1.43, Pro-Mitchel normal 0.13. Blood cultures were collected. She was given cefepime and vancomycin. Allergies Allergy/AdvReac Type Severity Reaction Status Date / Time No Known Allergies Allergy Verified 12/02/20 09:46 Home Medications Medication Instructions Recorded Confirmed Type No Known Home Medications 06/28/20 12/02/20 History Past Med/Surg History Medical History (Updated 03/01/22 @ 13:43 by Génesis García PA-C) Cellulitis of right leg Common bile duct dilation Elevated lactic acid level HTN (hypertension) Sepsis Symptomatic cholelithiasis UTI (urinary tract infection) Family History Other Gallbladder disease Lung disease Seizure Social History Smoking Status: Never smoker Second Hand Exposure: No; Do You Dip or Chew Tobacco: No; Tobacco Cessation Education Requested by Patient: No Hx Alcohol Use: No Hx Substance Use: No Preferred Language: Nepalese Communication Ability: Effective Hazmat Truck Driver Required: No Beliefs That Will Affect Care: None marital status: Current Living Situation: Spouse Current Living Situation Comment: and children Other Information That Helps Us Care for You: No Feels Safe at Home: Yes Safety Concerns: Feels Safe At This Time Assistive Devices: Denture - Upper, Denture - Lower and Glasses Review of Systems Review of Systems: as per HPI Physical Exam Physical Exam: General: 61-year old female who appears tired and ill, but in no acute distress. A&O throughout our discussion. HEENT: NCAT. - Eyes - Sclera are white, anicteric, and without injection. - Mouth - MMM - Neck - supple, no appreciable JVD Cardiac: Normal rate and regular rhythm; S1 and S2 present with no murmurs, rubs, or gallops. Pulmonary: Good respiratory effort with symmetric expansion of the chest. No use of accessory muscles. Lungs were clear to auscultation bilaterally with no crackles or wheezes. Abdominal: Normoactive bowel sounds. Abdomen was soft, nondistended, and mildly TTP in the epigastrum. Dermatologic: There are two patches of tender erythema that measure at 14x7cm and laterally 9x4cm on the anterior distal RLE. There is hyperpigmented skin along the posterior calf. Extremities: Upper and lower extremities are warm and well perfused. 1+ peripheral edema in the lower extremities bilaterally Psych: Well-developed, well-nourished, appropriately dressed for occasion. Behavior is cooperative and appropriate. Affect is WNL. Insight is appropriate. Results & Data Results & Data ([facility]) Vital Signs (Past 12 Hours) Vital Signs Temp Pulse Pulse Resp BP BP Pulse Ox 03/01/22 00:44 91 H 16 142/64 H 94 02/28/22 22:44 37.8 C H 98 H 16 139/65 93 02/28/22 22:48 37.1 C 87 20 152/72 H 96 O2 Del Method 03/01/22 00:44 Room Air 02/28/22 22:44 Room Air 02/28/22 22:48 Room Air Supervising Physician Co-Signing Physician Notes Attending addendum: I have physically seen this patient, have supervised the medical residents activities, and agree with the H&P unless as otherwise noted. Assessment and Plan: Right lower extremity cellulitis recurrence- No signs of osteo on x-ray Placed on cefepime 2 g IV every 8 hours and vancomycin IV renal dosing Previous admission required ceftriaxone/vancomycin and clindamycin IV Consider lower extremity arterial Dopplers Remaining orders and notations as noted Resident Activity Tracking Resident Involvement: Resident Care Provided Care Provided: Adult Hospital Medicine
[2022-03-01 03:33] LABS: Appearance Urine Clear (Clear); Bilirubin Urine Negative (Negative); Blood Urine Negative (Negative); Color Urine Yellow; Glucose Urine UA Negative (Negative); Ketones Urine Negative (Negative); Leukocyte Esterase Urine Negative (Negative); Nitrite Urine Negative (Negative); Protein Urine Negative (Negative); Specific Gravity Urine 1.007 (1.000-1.030); Urobilinogen Urine Negative (Negative)
[2022-03-01] MEDS ORDERED: SODIUM CHLORIDE 0.9% 500 ML IV SCH (04:00)
[2022-03-01] MEDS ORDERED: KETOROLAC TROMETHAMINE 15 MG/ML VIAL IV PRN (05:12)
[2022-03-01 07:35] LABS: Troponin I High Sensitivity 4.6 pg/ml (0-14)
--- NOTE | 2022-03-01 08:14 | XRay Report ---
RIGHT ANKLE 3 VIEWS HISTORY: Right ankle redness/swelling, pain COMPARISON: None. FINDINGS: There is no fracture or dislocation. There is diffuse soft tissue swelling. No underlying b dominique destruction. Plantar and posterior calcaneal spurs are noted. Mild osteoarthritis at the tibiotal ar joint demonstrated by mild joint space narrowing and small areas of subchondral cystic change at t he distal tibia. No radiopaque foreign bodies. IMPRESSION: 1. Soft tissue swelling within the right ankle. No underlying bony destruction. 2. 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 ACT 112: Negative or not required by law. Electronically signed by: Jose Antonio Hills M.D. 03/01/2022 8:12 AM
[2022-03-01] MEDS: ACETAMINOPHEN 500 MG TAB PO SCH ×2 (08:27→16:17)
[2022-03-01] MEDS: ENOXAPARIN INJ 40 MG/0.4 ML SYR SQ SCH (09:18)
[2022-03-01 09:54] LABS: BUN Creatinine Ratio 21.3 (10-20); Calcium 8.8 mg/dl (8.5-10.1); Creatinine Clr Calc Pharmacy 100.7 ml/min; Est GFR (African American) 114.2 ml/min; Est GFR (Non-African American) 98.5 ml/min; Potassium 3.4 mmol/L (3.5-5.1)
[2022-03-01 10:14] LABS: Basophils # (auto) 0.01 K/uL (0-0.2); Basophils % (auto) 0.1 %; Hemoglobin 12.6 g/dl (12.0-16.0); Immature Granulocytes # (auto) 0.02 K/uL (0.00-0.02); Immature Granulocytes % (auto) 0.2 %; Lymphocytes # (auto) 2.34 K/uL (1.2-3.4); Lymphocytes % (auto) 18.5 %; Mean Corpuscular Hemoglobin 28.7 pg (25.0-34.0); Mean Corpuscular Hgb Conc 34.1 g/dL (32.0-36.0); Mean Corpuscular Volume 84.3 fL (80.0-100.0); Mean Platelet Volume 10.1 fL (9.4-12.3); Monocytes # (auto) 0.52 K/uL (0.24-0.82); Monocytes % (auto) 4.1 %; Neutrophils # (auto) 9.77 K/uL (1.4-6.5); Neutrophils % (auto) 77.1 %; Platelet Count 143 K/uL (130-400); Platelet Estimate Normal (Normal); RDW Coefficient of Variation 13.2 % (11.5-14.5); RDW Standard Deviation 41.1 fL (36.4-46.3); Red Blood Count 4.39 M/uL (3.93-5.22); White Blood Count 12.66 K/ul (4.8-10.8)
--- NOTE | 2022-03-01 12:35 | Pharmacy Report ---
Pharmacy PK ABX Note - Date of Service March 01, 2022 - Assessment and Plan Assessment 61 year old F receiving vancomycin and cefepime for treatment of possible cellulitis. Bcx pending. Per provider note, patient does have a history of RLE cellulitis (previously requiring ceftriaxone, vanc and clinda). Day # 1 of antimicrobial therapy. Plan Vancomycin * Loading dose: 2000 mg IV x 1 administered @0230 this morning * Maintenance dose: 1250 mg IV every 12 hours to start this afternoon * Regimen is predicted to achieve target AUC/UMESH of 400-600 mg/L.hr * Trough level ordered for: 03/03/22 @1330 Pharmacy will continue to follow and will adjust dose/frequency as necessary. Thank you. Pharmacy has transitioned to AUC monitoring for vancomycin. AUC/UMESH is the preferred PK/PD target and is associated with decreased risk of nephrotoxicity compared to traditional trough targets.
--- NOTE | 2022-03-01 12:52 | Electrocardiogram Report ---
Test Reason : Blood Pressure : / mmHG Vent. Rate : 067 BPM Atrial Rate : 067 BPM P-R Int : 162 ms QRS Dur : 108 ms QT Int : 442 ms P-R-T Axes : 055 062 021 degrees QTc Int : 467 ms Normal sinus rhythm Nonspecific T wave abnormality Prolonged QT Abnormal ECG When compared with ECG of 31-JUL-2018 03:44, Nonspecific T wave abnormality now evident in Anterolateral leads QT has lengthened Confirmed by Krzysztof Montero ([id number]) on 03/01/2022 12:52:03 PM Referred By: REFERRED SELF Confirmed By:Krzysztof Montero
[2022-03-01] MEDS ORDERED: POTASSIUM CHLORIDE CRTAB 20 MEQ TABCR PO STA (13:31)
--- NOTE | 2022-03-01 13:55 | Hospitalist Progress Note ---
Date of Service March 01, 2022 Assessment & Plan (1) Cellulitis of right leg: Plan: - RLE cellulitis with associated HR >90 and leukocytosis (thus meeting sepsis cr iteria POA) - She has had several episodes of RLE cellulitis/sepsis in the past, has seen ID - Appears she has been treated with the following in some combination: Clinda, Bactrim, Keflex, Rocephin, and Vanco - Unfortunately, no culture data able to be collected (no open wound), denies trauma - Blood cultures ordered/pending - CRP 1.43-->6.06, Procal 0.13-->0.34 - WBC 13.14-->12.66 - Currently on empiric Rocephin and Vanco - Anticipate can likely dc home in the next 24-48 hours on a combo of Ancef + Bactrim (2) Leukocytosis: Plan: - As above (3) Hypokalemia: Plan: - Replacement ordered Plan Interventions as outlined above. Repeat labs in AM. Anticipate home in the next 24-48 hrs on course of oral abx. Plan to be d/w Dr. Salazar. Admission and Anticipated Discharge Date Admission Date: March 01, 2022 Subjective Patient seen on rounds today. No new complaints/concerns. Low grade temp this AM of 37.6. Denies injury/trauma to right ankle. Has had recurrent issues with sheila johnson of same site, last time was in 2018. Denies cp or dyspnea. Review of Systems Review of Systems: All systems reviewed and are unremarkable except as noted in HPI and below. +redness right ankle Denies fever, chills, fatigue, headache, nasal congestion, sore throat, cough, chest pain, shortness of breath, palpitations, orthopnea, PND, abdominal pain, n/v/d, constipation, dysuria, hematuria, frequency, back pain, joint pain or swelling, easy bruising or bleeding. Physical Exam Physical Exam: GENERAL: 61 yo Well-developed, well-nourished WF. NAD. LUNGS: Clear to auscultation bilaterally. No W/R/R. CARDIOVASCULAR: Regular rate and rhythm. ABDOMEN: Soft, non-tender and non-distended. Bowel sounds normoactive x 4 quad. EXTREMITIES: No edema. Non-tender. Peripheral pulses +2/4. NEUROLOGIC: A&O x3. PSYCHIATRIC: Cooperative. Appropriate mood and affect. SKIN: Erythema and edema of anterior R ankle. No obvious signs of abscess, nonfluctuant Results & Data Results & Data ([facility]) Vital Signs (Past 12 Hours) Vital Signs Temp Pulse Resp BP Pulse Ox O2 Del Method 03/01/22 07:25 37.6 C H 74 16 126/71 96 03/01/22 04:50 36.7 C 64 18 112/64 96 Room Air 03/01/22 04:00 37.5 C 86 16 121/62 95 Room Air Laboratory Results 03/01/22 09:15 03/01/22 09:15 PG Care Time/CCT Total # of Minutes Spent Total Time Spent with Patient: Total time spent is greater than 50% in coordination of care (as documented) at patient's floor/unit and/or counseling patient: Coding Level of Care Code 18522 Subseq Hosp Care Lvl 2 Diagnoses Cellulitis of right leg L03.115 Leukocytosis D72.829 Hypokalemia E87.6
[2022-03-01] MEDS ORDERED: CEFEPIME 2,000 MG in SYRINGE 0 ML IV SCH (14:00)
[2022-03-01] MEDS ORDERED: VANCOMYCIN HCL 1,250 MG in SODIUM CHLORIDE 0.9% 250 ML IV SCH (14:00)
[2022-03-01] MEDS ORDERED: VANCOMYCIN HCL 1,500 MG in SODIUM CHLORIDE 0.9% 500 ML IV SCH (14:00)
--- NOTE | 2022-03-01 20:59 | Billing Data ---
Date of Service March 01, 2022 Coding Level of Care Code 58963 Initial Inpt Care Lvl 3
[2022-03-01] MEDS ORDERED: PIPERACILLIN/TAZOBACTAM 4.5 GM in DEXTROSE 5% 100 ML IV ONE (22:00)
--- NOTE | 2022-03-01 22:01 | Communication Note ---
Date of Service: March 01, 2022 Informed by patient's nurse that she continued to feel ill into the evening and subsequently spiked a fever of 38.7C. Was also informed that erythema had progressed notably since her admission yesterday. Normotensive and febrile to 38.7 on my exam. General - ill-appearing, NAD, A&Ox3. Dermatologic - Appreciable proximal and circumferential expansion of the erythema w/ mild swelling. No crepitus. Pedal pulses 2+. Given her ill/febrile appearance and the appreciable (and quick) expansion of erythema into this evening, I am concerned about the efficacy of her cefepime/vancomycin. There are no findings of fungal infection. Will transition her ABX to Zosyn and Daptomycin (6mg/kg dose). New area marked and outlined. If worsening overnight, will consider imaging. Could also consider adding clindamycin. May wish to consider ID consult if worsening. Plan communicated with patient's RN and reviewed with attending. Resident Activity Tracking Resident Involvement: Resident Care Provided Care Provided: Adult Hospital Medicine
[2022-03-01] MEDS: DAPTOmycin 400 MG in SYRINGE 0 ML IV SCH (22:37)
[2022-03-02] MEDS: ACETAMINOPHEN 500 MG TAB PO SCH ×3 (00:05→16:07)
[2022-03-02] MEDS: PIPERACILLIN/TAZOBACTAM 4.5 GM in DEXTROSE 5% 100 ML IV SCH ×3 (04:32→20:06)
[2022-03-02 07:28] LABS: BUN Creatinine Ratio 13.8 (10-20); Calcium 8.6 mg/dl (8.5-10.1); Creatinine Clr Calc Pharmacy 94.5 ml/min; Est GFR (African American) 111.8 ml/min; Est GFR (Non-African American) 96.5 ml/min; Potassium 3.2 mmol/L (3.5-5.1)
[2022-03-02] MEDS: ENOXAPARIN INJ 40 MG/0.4 ML SYR SQ SCH (08:29)
[2022-03-02 08:47] LABS: Estimated Average Glucose 105 mg/dl; Hemoglobin A1C 5.3 % (4.5-5.6)
[2022-03-02] MEDS: POTASSIUM CHLORIDE CRTAB 20 MEQ TABCR PO SCH ×2 (09:12→14:18)
[2022-03-02 09:17] LABS: Basophils # (auto) 0.03 K/uL (0-0.2); Basophils % (auto) 0.3 %; Eosinophils # (auto) 0.01 K/uL (0-0.50); Eosinophils % (auto) 0.1 %; Hematocrit (blood only) 33.8 % (34.1-44.9); Hemoglobin 11.3 g/dl (12.0-16.0); Immature Granulocytes # (auto) 0.05 K/uL (0.00-0.02); Immature Granulocytes % (auto) 0.5 %; Lymphocytes # (auto) 3.57 K/uL (1.2-3.4); Mean Corpuscular Hemoglobin 28.3 pg (25.0-34.0); Mean Corpuscular Hgb Conc 33.4 g/dL (32.0-36.0); Mean Corpuscular Volume 84.5 fL (80.0-100.0); Mean Platelet Volume 10.7 fL (9.4-12.3); Monocytes % (auto) 4.3 %; Neutrophils # (auto) 5.34 K/uL (1.4-6.5); Neutrophils % (auto) 56.8 %; Platelet Count 124 K/uL (130-400); RDW Coefficient of Variation 13.4 % (11.5-14.5); RDW Standard Deviation 41.8 fL (36.4-46.3)
[2022-03-02] MEDS ORDERED: OPTIRAY 300 100mL IV ONE (09:51)
--- NOTE | 2022-03-02 11:15 | CT Scan Report ---
CT ankle RT w con HISTORY: 61 years-old Female worsening cellulitis, r/o abscess acute pain with soft tissue swelling of the right ankle COMPARISON: Right ankle CT 03/01/2022 TECHNIQUE: Multiple axial CT images of the right ankle were obtained following the intravenous minist ration of 94 mL Optiray 300. A dose lowering technique was used consistent with the principals of NIHARIKA CAMPUZANO. FINDINGS: There is mild subcutaneous edema of the ankle, most pronounced anterolaterally extending into the javier chantale foot. No focal fluid collections or foreign bodies identified. Subcutaneous varicosities of the l ower leg. The musculature is within normal limits. Suboptimal violation of the tendons and ligaments by CT technique. Thickening of the peroneal tendons may represent tendinosis. No full-thickness tendo n tear or retraction identified. No acute fracture, dislocation or osseous erosion. Subcortical cystic changes of the distal tibia wit h mild ankle, midfoot and hindfoot osteoarthritis. Moderate to large enthesophytes of the calcaneus. No osteochondral defect of the talar dome identified. Midfoot alignment appears anatomic. IMPRESSION: 1. No acute osseous abnormality. 2. Mild to moderate subcutaneous edema suggestive of cellulitis, lymphedema or venous stasis. 3. No abscess. 4. Mild osteoarthritis with calcaneal enthesophytes. ACT 112: Negative or not required by law. The above report was generated using voice recognition software. It may contain grammatical, syntax o r spelling errors. Electronically signed by: Jonah Ramachandran M.D. 03/02/2022 11:14 AM
--- NOTE | 2022-03-02 12:16 | Hospitalist Progress Note ---
Date of Service March 02, 2022 Assessment & Plan (1) Cellulitis of right leg: Plan: - RLE cellulitis with associated HR >90 and leukocytosis (thus meeting sepsis cr iteria POA) - She has had several episodes of RLE cellulitis/sepsis in the past, has seen ID - Appears she has been treated in the past with the following in some combination: Clinda, Bactrim, Keflex, Rocephin, Vanco - Unfortunately, no culture data able to be collected (no open wound), denies trauma - Blood cultures ordered-->NGTD - CRP 1.43-->6.06, Procal 0.13-->0.34 - WBC 13.14-->12.66-->9.40 - Initially ordered empiric Rocephin and Vanco, changed by overnight resident to Zosyn and Dapto d/t fever and worsening redness - Suspect the change was premature, would give at least 48 hrs to assess for improvement - CT w/ contrast of ankle no abscess, continue current treatment and can consider transition to oral abx in the next 24 - 48 hrs (2) Sepsis: Plan: As above - RESOLVED (3) Abdominal pain: Plan: - Patient reporting 1-day worth of reproducible, mild epigastric abdominal pain that also happened prior to her last bout of cellulitis - not associated w/ n/v/d. Much improved since admission / hydration. - Possibly dyspepsia or from systemic inflammation? - Low suspicion for cardiac but will check trop/ECG - trop 4.5, and ekg nonacute - no further c/o abd pain Plan Potassium 3.2--replacement ordered Continue plan as outlined above. Keep R leg/ankle elevated. Monitor inpatient overnight to ensure no further fever spikes. Noted WBC has normalized. Plan to be d/w Dr. Salazar. Admission and Anticipated Discharge Date Admission Date: March 01, 2022 Subjective Patient seen on rounds today. Pt had fever overnight, tmax 38.7C around 8pm with worsening redness of ankle. Overnight resident changed antibiotics. Pt notes that fever broke and she feels better today other than stating that her ankle is more painful this morning. Review of Systems Review of Systems: All systems reviewed and are unremarkable except as noted in HPI and below. +redness and pain right ankle Denies fever, chills, fatigue, headache, nasal congestion, sore throat, cough, chest pain, shortness of breath, palpitations, orthopnea, PND, abdominal pain, n/v/d, constipation, dysuria, hematuria, frequency, back pain, joint pain or swelling, easy bruising or bleeding. Physical Exam Physical Exam: GENERAL: 61 yo Well-developed, well-nourished WF. NAD. LUNGS: Clear to auscultation bilaterally. No W/R/R. CARDIOVASCULAR: Regular rate and rhythm. ABDOMEN: Soft, non-tender and non-distended. Bowel sounds normoactive x 4 quad. EXTREMITIES: No edema. Peripheral pulses +2/4. R ankle tender. NEUROLOGIC: A&O x3. PSYCHIATRIC: Cooperative. Appropriate mood and affect. SKIN: Circumferential erythema and edema of anterior R ankle. No obvious signs of abscess, nonfluctuant Results & Data Results & Data ([facility]) Vital Signs (Past 12 Hours) Vital Signs Temp Pulse Resp BP Pulse Ox O2 Del Method 03/02/22 07:23 37.7 C H 75 16 131/73 96 Room Air 03/02/22 04:31 37.2 C 66 16 118/68 93 Room Air Laboratory Results 03/02/22 06:21 03/02/22 06:[address] 03/02/22 09:03 CT ankle RT w con HISTORY: 61 years-old Female worsening cellulitis, r/o abscess acute pain with soft tissue swelling of the right ankle COMPARISON: Right ankle CT 03/01/2022 TECHNIQUE: Multiple axial CT images of the right ankle were obtained following the intravenous ministration of 94 mL Optiray 300. A dose lowering technique was used consistent with the principals of ALARA. FINDINGS: There is mild subcutaneous edema of the ankle, most pronounced anterolaterally extending into the dorsal foot. No focal fluid collections or foreign bodies identified. Subcutaneous varicosities of the lower leg. The musculature is within normal limits. Suboptimal violation of the tendons and ligaments by CT technique. Thickening of the peroneal tendons may represent tendinosis. No full-thickness tendon tear or retraction identified. No acute fracture, dislocation or osseous erosion. Subcortical cystic changes of the distal tibia with mild ankle, midfoot and hindfoot osteoarthritis. Moderate to large enthesophytes of the calcaneus. No osteochondral defect of the talar dome identified. Midfoot alignment appears anatomic. IMPRESSION: 1. No acute osseous abnormality. 2. Mild to moderate subcutaneous edema suggestive of cellulitis, lymphedema or venous stasis. 3. No abscess. 4. Mild osteoarthritis with calcaneal enthesophytes. ACT 112: Negative or not required by law. The above report was generated using voice recognition software. It may contain grammatical, syntax or spelling errors. Electronically signed by: Jonah Ramachandran M.D. 03/02/2022 11:14 AM PG Care Time/CCT Total # of Minutes Spent Total Time Spent with Patient: Total time spent is greater than 50% in coordination of care (as documented) at patient's floor/unit and/or counseling patient: Coding Level of Care Code 96480 Subseq Hosp Care Lvl 2 Diagnoses Cellulitis of right leg L03.115 Sepsis A41.9 Abdominal pain R10.9
[2022-03-02] MEDS: DAPTOmycin 400 MG in SYRINGE 0 ML IV SCH (22:01)
[2022-03-03] MEDS: ACETAMINOPHEN 500 MG TAB PO SCH ×3 (01:55→16:22)
[2022-03-03] MEDS: PIPERACILLIN/TAZOBACTAM 4.5 GM in DEXTROSE 5% 100 ML IV SCH ×3 (04:01→20:57)
[2022-03-03] MEDS: ENOXAPARIN INJ 40 MG/0.4 ML SYR SQ SCH (07:54)
[2022-03-03 09:46] LABS: BUN Creatinine Ratio 13.1 (10-20); C Reactive Protein 13.45 mg/dl (0-0.5); Calcium 9.1 mg/dl (8.5-10.1); Creatinine Clr Calc Pharmacy 100.7 ml/min; Est GFR (African American) 114.2 ml/min; Est GFR (Non-African American) 98.5 ml/min; Potassium 3.9 mmol/L (3.5-5.1)
[2022-03-03] MEDS ORDERED: VANCOMYCIN LEVEL ONE (13:30)
--- NOTE | 2022-03-03 14:42 | Hospitalist Progress Note ---
Date of Service March 03, 2022 Assessment & Plan (1) Cellulitis of right leg: Plan: - RLE cellulitis with associated HR >90 and leukocytosis (thus meeting sepsis cr iteria POA) - She has had several episodes of RLE cellulitis/sepsis in the past, has seen ID - Appears she has been treated in the past with the following in some combination: Clinda, Bactrim, Keflex, Rocephin, Vanco - Unfortunately, no culture data able to be collected (no open wound), denies trauma - Blood cultures ordered-->NGTD - CRP 1.43-->6.06, Procal 0.13-->0.34 - WBC 13.14-->12.66-->9.40 - Initially ordered empiric Rocephin and Vanco, changed by overnight resident to Zosyn and Dapto d/t fever and worsening redness - Suspect the change was premature, would give at least 48 hrs to assess for improvement - CT w/ contrast of ankle no abscess - Will monitor additional 24 hours and plan to transition home w/ course of oral abx- tentatively Keflex + Bactrim DS (2) Sepsis: Plan: As above - RESOLVED (3) Abdominal pain: Plan: - Patient reporting 1-day worth of reproducible, mild epigastric abdominal pain that also happened prior to her last bout of cellulitis - not associated w/ n/v/d. Much improved since admission / hydration. - Possibly dyspepsia or from systemic inflammation? - Low suspicion for cardiac but will check trop/ECG - trop 4.5, and ekg nonacute - no further c/o abd pain Plan Hypokalemia of 3.2 on 03/02-replaced/resolved Monitor additional 24 hours and anticipate will be able to d/c home on course of oral abx (Keflex + Bactrim DS) for total of 10 days and o/p follow up with PCP. Plan d/w Dr. Salazar. Admission and Anticipated Discharge Date Admission Date: March 01, 2022 Subjective Patient seen on rounds today. No further temperature elevations in the last 24 hours. She feels that while ankle is boiler tender, redness is improving. She denies chest pain, dyspnea, n/v/d, f/c, headache. Review of Systems Review of Systems: All systems reviewed and are unremarkable except as noted in HPI and below. +redness and pain right ankle Denies fever, chills, fatigue, headache, nasal congestion, sore throat, cough, chest pain, shortness of breath, palpitations, orthopnea, PND, abdominal pain, n/v/d, constipation, dysuria, hematuria, frequency, back pain, joint pain or swelling, easy bruising or bleeding. Physical Exam Physical Exam: GENERAL: 61 yo Well-developed, well-nourished WF. NAD. LUNGS: Clear to auscultation bilaterally. No W/R/R. CARDIOVASCULAR: Regular rate and rhythm. ABDOMEN: Soft, non-tender and non-distended. Bowel sounds normoactive x 4 quad. EXTREMITIES: No edema. Peripheral pulses +2/4. R ankle tender. NEUROLOGIC: A&O x3. PSYCHIATRIC: Cooperative. Appropriate mood and affect. SKIN: Circumferential erythema and edema of anterior R ankle, receding from outlined area. No obvious signs of abscess, nonfluctuant Results & Data Results & Data ([facility]) Vital Signs (Past 12 Hours) Vital Signs Temp Pulse Resp BP Pulse Ox O2 Del Method 03/03/22 07:48 36.8 C 65 16 125/76 97 Room Air Laboratory Results 03/02/22 06:21 03/03/22 08:29 PG Care Time/CCT Total # of Minutes Spent Total Time Spent with Patient: Total time spent is greater than 50% in coordination of care (as documented) at patient's floor/unit and/or counseling patient: Coding Level of Care Code 74400 Subseq Hosp Care Lvl 2 Diagnoses Cellulitis of right leg L03.115 Sepsis A41.9 Abdominal pain R10.9
[2022-03-03] MEDS: DAPTOmycin 400 MG in SYRINGE 0 ML IV SCH (22:08)
[2022-03-04] MEDS: ACETAMINOPHEN 500 MG TAB PO SCH ×3 (01:40→17:43)
[2022-03-04] MEDS: PIPERACILLIN/TAZOBACTAM 4.5 GM in DEXTROSE 5% 100 ML IV SCH ×3 (04:10→21:03)
[2022-03-04 07:35] LABS: Creatinine Clr Calc Pharmacy 104.1 ml/min; Est GFR (African American) 115.5 ml/min; Est GFR (Non-African American) 99.6 ml/min
[2022-03-04] MEDS: ENOXAPARIN INJ 40 MG/0.4 ML SYR SQ SCH (07:42)
--- NOTE | 2022-03-04 13:21 | Hospitalist Progress Note ---
Date of Service March 04, 2022 Assessment & Plan (1) Cellulitis of right leg: Plan: - RLE cellulitis with associated HR >90 and leukocytosis (thus meeting sepsis criteria POA) - She has had several episodes of RLE cellulitis/sepsis in the past, has seen ID - Appears she has been treated in the past with the following in some combination: Clinda, Bactrim, Keflex, Rocephin, Vanco - Unfortunately, no culture data able to be collected (no open wound), denies trauma - Blood cultures ordered-->NGTD - CRP 1.43-->6.06, Procal 0.13-->0.34 - WBC 13.14-->12.66-->9.40 - Initially ordered empiric Rocephin and Vanco, changed by overnight resident to Zosyn and Dapto d/t fever and worsening redness - Suspect the change was premature, would give at least 48 hrs to assess for improvement - CT w/ contrast of ankle no abscess - Will monitor additional 24 hours and plan to transition home w/ course of oral abx- tentatively Keflex + Bactrim DS -> CT ankle on 03/02 showed tendinosis, and the patient reports continued swelling and pain over the lateral malleulous. Discussed with patient and , but patient prefers checking to make sure no deeper tendon infection rather than home with oral abx. I was 50/50, but rising CRP and procal both concerning. Will continue current IV abx and get MRI. If not tendon involvement, could discharge on oral abx. = DVT seems less likely as she has been on Lovenox and most areas apart from over ankle are improving. (2) Sepsis: Plan: As above - RESOLVED (3) Abdominal pain: Plan: - Patient reporting 1-day worth of reproducible, mild epigastric abdominal pain that also happened prior to her last bout of cellulitis - not associated w/ n/v/d. Much improved since admission / hydration. - Possibly dyspepsia or from systemic inflammation? - Low suspicion for cardiac but will check trop/ECG - trop 4.5, and ekg nonacute - no further c/o abd pain Plan Hypokalemia of 3.2 on 03/02-replaced/resolved Admission and Anticipated Discharge Date Admission Date: March 01, 2022 Subjective Doing ok this morning. Reports the ankle was swollen overnight, but improved this morning. Physical Exam Constitutional: WD/WN, vitals as above Eyes: EOM intact bilaterally; no conjunctival abnormality ENMT: external ear and nose normal, oropharynx normal Neck: trachea midline, no thyromegaly normal visual inspection Respiratory: normal respiratory effort, lungs clear to auscultation no respiratory distress Cardiovascular: RRR, no murmur, no edema Gastrointestinal (Abdomen): Inspection/Auscultation: abdomen normal to inspection; abdomen not distended Musculoskeletal: no cyanosis or clubbing, extremities motor strength 5/5 Erythema improving, but still prominent over lateral malleolus. Pain with active and passive ROM. Skin: no rashes, warm and dry Neurologic: moves all extremities and awake Psychiatric: Orientation: alert, oriented to person and cooperative Results & Data Results & Data ([facility]) Vital Signs (Past 12 Hours) Vital Signs Temp Pulse Resp BP Pulse Ox O2 Del Method 03/04/22 07:24 36.7 C 54 L 18 152/80 H 95 Room Air PG Care Time/CCT Total # of Minutes Spent Total Time Spent with Patient: Total time spent is greater than 50% in coordination of care (as documented) at patient's floor/unit and/or counseling patient: Coding Level of Care Code 60419 Subseq Hosp Care Lvl 2 Diagnoses Cellulitis of right leg L03.115 Sepsis A41.9 Abdominal pain R10.9
[2022-03-04] MEDS ORDERED: GADOBUTROL 65ML VIAL IV ONE (13:37)
--- NOTE | 2022-03-04 14:40 | Magnetic Resonance Report ---
MR ankle RT wo/w con HISTORY: Right lower extremity cellulitis, with continued pain over lateral malleolus. TECHNIQUE: Multiplanar multisequence MRI of the right ankle was performed both before and after the i ntravenous administration of 8 cc of Gadavist contrast. COMPARISON STUDY: Right ankle CT 03/02/2022. FINDINGS: Small focal areas of cystic change and subchondral edema within the medial tibial plafond. This is likely due to long-standing degenerative change. Otherwise, there is a normal marrow signal i ntensity seen throughout the remaining osseous structures of the right ankle. No cortical destruction or abnormal enhancement to suggest an osteomyelitis. No acute fracture or dislocation. There is exte nsive subcutaneous edema and enhancement within the lateral ankle/hindfoot consistent with a cellulit is. Best seen on axial image 23 and coronal image 29 there is a 2.3 x 1.1 x 0.5 cm linear loculated f luid collection within the lateral aspect of the ankle. This favors a small developing subcutaneous a bscess. There are a few additional areas of subcentimeter fluid collections within the lateral aspect of the midfoot best seen on coronal images 7 through 13. These favors areas of phlegmon/developing a bscesses. No significant joint effusion. The flexor, extensor, and Achilles tendons are intact. There is a partial tear/tendinopathy of the peroneus longus tendon. The medial and lateral stabilizing lig aments are intact. IMPRESSION: 1. Extensive subcutaneous edema and enhancement within the lateral aspect of the ankle/hindfoot consi stent with a cellulitis. No underlying bony abnormality to suggest osteomyelitis. 2. There are few small subcutaneous fluid collections within the lateral ankle and midfoot as describ ed above. These favor phlegmon/developing abscesses. ACT 112: Negative or not required by law. Electronically signed by: Jose Antonio Hills M.D. 03/04/2022 2:39 PM
[2022-03-04] MEDS: DAPTOmycin 400 MG in SYRINGE 0 ML IV SCH (21:03)
[2022-03-05] MEDS: ACETAMINOPHEN 500 MG TAB PO SCH ×3 (01:29→18:20)
[2022-03-05] MEDS: PIPERACILLIN/TAZOBACTAM 4.5 GM in DEXTROSE 5% 100 ML IV SCH ×3 (05:22→21:13)
[2022-03-05 08:16] LABS: Hematocrit (blood only) 36.5 % (34.1-44.9); Hemoglobin 12.4 g/dl (12.0-16.0); Mean Corpuscular Hemoglobin 28.8 pg (25.0-34.0); Mean Corpuscular Volume 84.7 fL (80.0-100.0); Mean Platelet Volume 10.3 fL (9.4-12.3); Platelet Count 182 K/uL (130-400); RDW Coefficient of Variation 13.4 % (11.5-14.5); RDW Standard Deviation 42.1 fL (36.4-46.3); Red Blood Count 4.31 M/uL (3.93-5.22); White Blood Count 5.05 K/ul (4.8-10.8)
[2022-03-05 08:38] LABS: Creatinine Clr Calc Pharmacy 100.7 ml/min; Est GFR (African American) 114.2 ml/min; Est GFR (Non-African American) 98.5 ml/min; Potassium 3.9 mmol/L (3.5-5.1)
[2022-03-05] MEDS: ENOXAPARIN INJ 40 MG/0.4 ML SYR SQ SCH (08:46)
--- NOTE | 2022-03-05 15:20 | Orthopedic Consultation ---
Date of Service March 05, 2022 Assessment & Plan (1) Cellulitis of right leg: She is doing mostly with the cellulitis of her right foot and ankle. The current IV and biotics seem to be helpful as it does seem to be improving. She does have a lot of tenderness laterally. There are several small areas of questionable abscess collection in the subcutaneous tissue on the MRI. These are too small to consider any open I&D of the ankle. These are best treated with IV or oral antibiotics. I did not see any tendon involvement or bony involvement on the MRI. She is orthopedically stable for discharge when medically ready. She she can follow-up in our office on an as-needed basis. History of Present Illness Reason for Consultation: Right ankle cellulitis. Requesting Physician: . Attending Physician: Marlyn Borges MD Judy is a pleasant 61-year-old female who is been having a weeklong history of inflammation and soreness around the lateral aspect of her right ankle. She does have a history of cellulitis around her right ankle in the past without was mostly in the posterior calf region. The symptoms started about a week ago. She came to the emergency room and was started on IV antibiotics. She is currently on Zosyn and daptomycin. Her ankle is getting a little bit better. She still very tender to palpation along the lateral aspect of the ankle. CT scan of the ankle did not show any abscesses or signs of osteomyelitis. She had an MRI of the ankle which showed no osteomyelitis and no tendon involvement but small area of possible abscess formation. Orthopedics was consulted to evaluate and treat.. Allergies Allergy/AdvReac Type Severity Reaction Status Date / Time No Known Allergies Allergy Verified 12/02/20 09:46 Home Medications Medication Instructions Recorded Confirmed Type No Known Home Medications 06/28/20 12/02/20 History Past Med/Surg History Medical History Cellulitis of right leg Common bile duct dilation Elevated lactic acid level HTN (hypertension) Sepsis Symptomatic cholelithiasis UTI (urinary tract infection) Family History Other Gallbladder disease Lung disease Seizure Social History Smoking Status: Never smoker Second Hand Exposure: No; Do You Dip or Chew Tobacco: No; Tobacco Cessation Education Requested by Patient: No Hx Alcohol Use: No Hx Substance Use: No Preferred Language: [place]an Communication Ability: Effective [employer] History Teacher Required: No Beliefs That Will Affect Care: None marital status: Current Living Situation: Spouse Current Living Situation Comment: and children Other Information That Helps Us Care for You: No Feels Safe at Home: Yes Safety Concerns: Feels Safe At This Time Assistive Devices: Wheelchair Review of Systems All systems reviewed & are unremarkable except as noted in HPI & below. Physical Exam On physical examination of the right ankle there is a large area of cellulitis mostly over the lateral aspect of the foot and ankle. She is a lot of tenderness palpation in this area. It seems to be receding some from the prior markings. She has active motion of her toes. I do not see any ulcerations or signs of purulent discharge.. Constitutional WD/WN, vitals as above Eyes PERRL, conjunctivae normal, anicteric sclerae ENMT external ear and nose normal, oropharynx normal Neck trachea midline, no thyromegaly Respiratory normal respiratory effort, lungs clear to auscultation Cardiovascular RRR, no murmur, no edema Gastrointestinal (Abdomen) normal bowel sounds, soft, nontender, no hepatosplenomegaly Skin no rashes, warm and dry Psychiatric A+Ox3, euthymic affect Results & Data Results & Data Laboratory Results . Diagnostic Findings MRI of the right ankle does show diffuse subcutaneous fluid. This is mostly indicative of cellulitis. I do not see any signs of osteomyelitis or tendon involvement. There are several very small areas of possible early abscess collection.. PG Care Time/CCT Total # of Minutes Spent Total Time Spent with Patient: Total time spent is greater than 50% in coordination of care (as documented) at patient's floor/unit and/or counseling patient: Coding Level of Care Code 23587 Inpt Consult Level 4 Diagnoses Cellulitis of right leg L03.115
--- NOTE | 2022-03-05 17:22 | Hospitalist Progress Note ---
Date of Service March 05, 2022 Assessment & Plan (1) Cellulitis of right leg: Plan: - Failed outpatient management -MRI shows evidence of cellulitis, with questionable pus build up, no evidence of osteomyelitis -Currently on Daptomycin and Zosyn -No plans for incision and drainage per Ortho, pus not drainable -Outpatient follow up with ortho upon d/c (2) Sepsis: Plan: As above - RESOLVED (3) Abdominal pain: Plan: - Patient reporting 1-day worth of reproducible, mild epigastric abdominal pain that also happened prior to her last bout of cellulitis - not associated w/ n/v/d. Much improved since admission / hydration. - Possibly dyspepsia or from systemic inflammation? - Low suspicion for cardiac but will check trop/ECG - trop 4.5, and ekg nonacute - no further c/o abd pain Plan Hopefully d/c on Oral antibiotics in the next 24-48 hrs Admission and Anticipated Discharge Date Admission Date: March 01, 2022 Subjective patient seen and examined, still complains of right foot pain, but better than before Review of Systems Review of Systems: All systems reviewed are negative, apart from the ones contained in the history. Physical Exam Physical Exam: The patient is awake, alert and oriented 3, well developed and well nourished, normocephalic and atraumatic, lying in bed and in no acute distress. HEENT--PERRL, EOMI, mucous membranes and oropharynx mildly dry Neck--supple. No JVD. No bruits. Thyroid normal, trachea midline, no adenopathy. Heart--normal S1 and S2. No murmurs, rubs or gallops. Lungs--clear bilaterally, no respiratory distress, no accessory muscle use. Abdomen--normal bowel sounds and soft. Mild epigastric and left sided abdominal pain Extremities--right leg redness, swelling Dermatologic--right leg redness. Neurologic--cranial nerves II through XII grossly intact. Rheumatologic--normal range of motion. Psychiatric--normal affect. Results & Data Results & Data ([facility]) Vital Signs (Past 12 Hours) Vital Signs Temp Pulse Resp BP Pulse Ox 03/05/22 15:44 98.1 F 65 16 150/86 H 96 03/05/22 07:32 98.2 F 61 16 153/84 H 96 PG Care Time/CCT Total # of Minutes Spent Total Time Spent with Patient: Total time spent is greater than 50% in coordination of care (as documented) at patient's floor/unit and/or counseling patient: Coding Level of Care Code 42626 Subseq Hosp Care Lvl 2 Diagnoses Cellulitis of right leg L03.115 Sepsis A41.9 Abdominal pain R10.9 Time Spent (min) 35
[2022-03-05] MEDS: DAPTOmycin 400 MG in SYRINGE 0 ML IV SCH (21:13)
[2022-03-06] MEDS: ACETAMINOPHEN 500 MG TAB PO SCH ×4 (01:18→17:33)
[2022-03-06] MEDS: PIPERACILLIN/TAZOBACTAM 4.5 GM in DEXTROSE 5% 100 ML IV SCH (05:03)
[2022-03-06] MEDS: ENOXAPARIN INJ 40 MG/0.4 ML SYR SQ SCH (08:06)
[2022-03-06 08:39] LABS: Hematocrit (blood only) 36.1 % (34.1-44.9); Hemoglobin 12.4 g/dl (12.0-16.0); Mean Corpuscular Hgb Conc 34.3 g/dL (32.0-36.0); Mean Corpuscular Volume 84.5 fL (80.0-100.0); Mean Platelet Volume 9.8 fL (9.4-12.3); Platelet Count 185 K/uL (130-400); RDW Coefficient of Variation 13.5 % (11.5-14.5); RDW Standard Deviation 41.8 fL (36.4-46.3); Red Blood Count 4.27 M/uL (3.93-5.22); White Blood Count 5.78 K/ul (4.8-10.8)
[2022-03-06] MEDS: AMPICILLIN/SULBACTAM SOD 3,000 MG in 0.9 % SODIUM CHLORIDE 100 ML IV SCH ×2 (13:20→17:34)
--- NOTE | 2022-03-06 14:37 | Hospitalist Progress Note ---
Date of Service March 06, 2022 Assessment & Plan (1) Cellulitis of right leg: Plan: - Failed outpatient management -MRI shows evidence of cellulitis, with questionable pus build up, no evidence of osteomyelitis -Currently on Unasyn -Will d/c on oral augmentin and Bactrim -No plans for incision and drainage per Ortho, pus not drainable -Outpatient follow up with ortho upon d/c (2) Sepsis: Plan: As above - RESOLVED (3) Abdominal pain: Plan: - Patient reporting 1-day worth of reproducible, mild epigastric abdominal pain that also happened prior to her last bout of cellulitis - not associated w/ n/v/d. Much improved since admission / hydration. - Possibly dyspepsia or from systemic inflammation? - Low suspicion for cardiac but will check trop/ECG - trop 4.5, and ekg nonacute - no further c/o abd pain Plan Hopefully d/c on Oral antibiotics in the next 24-48 hrs Admission and Anticipated Discharge Date Admission Date: March 01, 2022 Subjective patient seen and examined, still complains of right foot pain, but better than before Review of Systems Review of Systems: All systems reviewed are negative, apart from the ones contained in the history. Physical Exam Physical Exam: The patient is awake, alert and oriented 3, well developed and well nourished, normocephalic and atraumatic, lying in bed and in no acute distress. HEENT--PERRL, EOMI, mucous membranes and oropharynx mildly dry Neck--supple. No JVD. No bruits. Thyroid normal, trachea midline, no adenopathy. Heart--normal S1 and S2. No murmurs, rubs or gallops. Lungs--clear bilaterally, no respiratory distress, no accessory muscle use. Abdomen--normal bowel sounds and soft. Mild epigastric and left sided abdominal pain Extremities--right leg redness, swelling Dermatologic--right leg redness. Neurologic--cranial nerves II through XII grossly intact. Rheumatologic--normal range of motion. Psychiatric--normal affect. Results & Data Results & Data ([facility]) Vital Signs (Past 12 Hours) Vital Signs Temp Pulse Resp BP Pulse Ox 03/06/22 10:38 76 144/78 H 03/06/22 07:23 98.6 F 59 L 16 173/89 H 95 PG Care Time/CCT Total # of Minutes Spent Total Time Spent with Patient: Total time spent is greater than 50% in coordination of care (as documented) at patient's floor/unit and/or counseling patient: Coding Level of Care Code 78533 Subseq Hosp Care Lvl 2 Diagnoses Cellulitis of right leg L03.115 Sepsis A41.9 Abdominal pain R10.9 Time Spent (min) 35
[2022-03-06] MEDS ORDERED: KETOROLAC TROMETHAMINE 15 MG/ML VIAL IV ONE (18:06)
[2022-03-06] MEDS: DAPTOmycin 400 MG in SYRINGE 0 ML IV SCH (21:37)
[2022-03-07] MEDS: ACETAMINOPHEN 500 MG TAB PO SCH ×3 (00:47→17:59)
[2022-03-07] MEDS: AMPICILLIN/SULBACTAM SOD 3,000 MG in 0.9 % SODIUM CHLORIDE 100 ML IV SCH ×4 (00:47→18:00)
[2022-03-07] MEDS: ENOXAPARIN INJ 40 MG/0.4 ML SYR SQ SCH (08:46)
[2022-03-07 09:00] LABS: Hematocrit (blood only) 35.7 % (34.1-44.9); Hemoglobin 12.3 g/dl (12.0-16.0); Mean Corpuscular Hgb Conc 34.5 g/dL (32.0-36.0); Mean Corpuscular Volume 84.2 fL (80.0-100.0); Mean Platelet Volume 9.8 fL (9.4-12.3); Platelet Count 205 K/uL (130-400); RDW Coefficient of Variation 13.6 % (11.5-14.5); RDW Standard Deviation 41.7 fL (36.4-46.3); Red Blood Count 4.24 M/uL (3.93-5.22); White Blood Count 5.67 K/ul (4.8-10.8)
--- NOTE | 2022-03-07 15:22 | Hospitalist Progress Note ---
Date of Service March 07, 2022 Assessment & Plan (1) Cellulitis of right leg: Plan: - Failed outpatient management -MRI shows evidence of cellulitis, with questionable pus build up, no evidence of osteomyelitis -Currently on Unasyn -Will d/c on oral augmentin and Bactrim -No plans for incision and drainage per Ortho, pus not drainable -Outpatient follow up with ortho upon d/c (2) Sepsis: Plan: As above - RESOLVED (3) Abdominal pain: Plan: - Resolved Plan Hopefully d/c on Oral antibiotics in the next 24-48 hrs Admission and Anticipated Discharge Date Admission Date: March 01, 2022 Subjective patient seen and examined, still complains of right foot pain, but better than before Review of Systems Review of Systems: All systems reviewed are negative, apart from the ones contained in the history. Physical Exam Physical Exam: The patient is awake, alert and oriented 3, well developed and well nourished, normocephalic and atraumatic, lying in bed and in no acute distress. HEENT--PERRL, EOMI, mucous membranes and oropharynx mildly dry Neck--supple. No JVD. No bruits. Thyroid normal, trachea midline, no adenopathy. Heart--normal S1 and S2. No murmurs, rubs or gallops. Lungs--clear bilaterally, no respiratory distress, no accessory muscle use. Abdomen--normal bowel sounds and soft. Mild epigastric and left sided abdominal pain Extremities--right leg redness, swelling Dermatologic--right leg redness. Neurologic--cranial nerves II through XII grossly intact. Rheumatologic--normal range of motion. Psychiatric--normal affect. Results & Data Results & Data ([facility]) Vital Signs (Past 12 Hours) Vital Signs Temp Pulse Resp BP Pulse Ox O2 Del Method 03/07/22 06:15 97.7 F 63 14 155/95 H 98 Room Air PG Care Time/CCT Total # of Minutes Spent Total Time Spent with Patient: Total time spent is greater than 50% in coordination of care (as documented) at patient's floor/unit and/or counseling patient: Coding Level of Care Code 96867 Subseq Hosp Care Lvl 2 Diagnoses Cellulitis of right leg L03.115 Sepsis A41.9 Abdominal pain R10.9 Time Spent (min) 35
[2022-03-07] MEDS: DAPTOmycin 400 MG in SYRINGE 0 ML IV SCH (22:37)
[2022-03-08] MEDS: ACETAMINOPHEN 500 MG TAB PO SCH ×3 (00:51→18:25)
[2022-03-08] MEDS: AMPICILLIN/SULBACTAM SOD 3,000 MG in 0.9 % SODIUM CHLORIDE 100 ML IV SCH ×4 (00:52→18:26)
[2022-03-08] MEDS: ENOXAPARIN INJ 40 MG/0.4 ML SYR SQ SCH (11:36)
[2022-03-08] MEDS ORDERED: KETOROLAC TROMETHAMINE 15 MG/ML VIAL IV ONE (14:59)
--- NOTE | 2022-03-08 15:02 | Hospitalist Progress Note ---
Date of Service March 08, 2022 Assessment & Plan (1) Cellulitis of right leg: Plan: - Failed outpatient management -MRI shows evidence of cellulitis, with questionable pus build up, no evidence of osteomyelitis -Currently on Unasyn -However, still with a lot of pains -Will repeat MRI for follow up, it seems abscess is getting bigger, it may now be drainable -Will d/c on oral augmentin and Bactrim -Outpatient follow up with ortho upon d/c (2) Sepsis: Plan: As above - RESOLVED (3) Abdominal pain: Plan: - Resolved Plan Hopefully d/c on Oral antibiotics in the next 24-48 hrs Admission and Anticipated Discharge Date Admission Date: March 01, 2022 Subjective patient seen and examined, still complains of right foot pain, but better than before, still limiting her movement Review of Systems Review of Systems: All systems reviewed are negative, apart from the ones contained in the history. Physical Exam Physical Exam: The patient is awake, alert and oriented 3, well developed and well nourished, normocephalic and atraumatic, lying in bed and in no acute distress. HEENT--PERRL, EOMI, mucous membranes and oropharynx mildly dry Neck--supple. No JVD. No bruits. Thyroid normal, trachea midline, no adenopathy. Heart--normal S1 and S2. No murmurs, rubs or gallops. Lungs--clear bilaterally, no respiratory distress, no accessory muscle use. Abdomen--normal bowel sounds and soft. Mild epigastric and left sided abdominal pain Extremities--right leg redness, swelling Dermatologic--right leg redness. Neurologic--cranial nerves II through XII grossly intact. Rheumatologic--normal range of motion. Psychiatric--normal affect. Results & Data Results & Data ([facility]) Vital Signs (Past 12 Hours) Vital Signs Temp Pulse Resp BP Pulse Ox O2 Del Method 03/08/22 07:45 97.9 F 61 20 173/74 H 96 Room Air PG Care Time/CCT Total # of Minutes Spent Total Time Spent with Patient: Total time spent is greater than 50% in coordination of care (as documented) at patient's floor/unit and/or counseling patient: Coding Level of Care Code 55561 Subseq Hosp Care Lvl 2 Diagnoses Cellulitis of right leg L03.115 Sepsis A41.9 Abdominal pain R10.9 Time Spent (min) 35
--- NOTE | 2022-03-08 19:40 | Magnetic Resonance Report ---
MRI OF THE RIGHT ANKLE WITHOUT IV CONTRAST CLINICAL HISTORY: Ankle abscess. Foot swelling. COMPARISON STUDY: MRI of the right ankle dated 03/04/2022. TECHNIQUE: MRI of the right ankle is performed utilizing various T1 and T2-weighted sequences in axia l, sagittal, and coronal planes. IV contrast was not administered for this examination. FINDINGS: There is no marrow signal abnormality identified to suggest osteomyelitis. The ankle mortis e is intact. Degenerative change is noted at the tibiotalar articulation, with subchondral cyst forma tion in the distal tibia. No osteochondral defect is seen in the talar dome. There is no significant ankle joint effusion. The Achilles tendon is normal in morphology and signal intensity. The anterior, posterior, and peroneal tendons appear intact. The anterior talofibular ligament is maintained. Ther e is significant soft tissue edema and subcutaneous fluid identified around the ankle and hindfoot. T his is greatest laterally and along the dorsum of the foot. A small loculated fluid collection is aga in seen in the lateral aspect of the ankle overlying the lateral malleolus on axial image #17. This m easures 16 x 15 x 7 mm in aggregate dimension, and is overall similar to the 03/04/2022 examination gi traci differences in technique. Serpiginous pockets of fluid are also seen along the dorsolateral aspec t of the foot on coronal image #6. This also likely similar to previous. Imaged portions of the plant ar fascia appear intact. IMPRESSION: 1. No acute osseous abnormality is identified. 2. Significant soft tissue edema and subcutaneous fluid are again seen around the ankle and hindfoot as above. This is greatest dorsally and laterally, and the appearance favors cellulitis. 3. Serpiginous pockets of fluid are again seen in the lateral ankle and overlying the dorsolateral as pect of the foot. This likely represents phlegmonous change/developing abscesses, and is overall cale lar to the 03/04/2022 examination given differences in technique. Dictated: 03/08/2022 5:34 PM Transcribed: 03/08/2022 5:58 PM Madelin [id number] LEENA_Cody Electronically signed by: Toño Schultz M.D. 03/08/2022 7:38 PM
[2022-03-09] MEDS: AMPICILLIN/SULBACTAM SOD 3,000 MG in 0.9 % SODIUM CHLORIDE 100 ML IV SCH ×3 (01:59→12:13)
[2022-03-09] MEDS: ACETAMINOPHEN 500 MG TAB PO SCH ×2 (02:47→08:31)
[2022-03-09 07:05] LABS: Hematocrit (blood only) 33.9 % (34.1-44.9); Hemoglobin 11.4 g/dl (12.0-16.0); Mean Corpuscular Hemoglobin 28.7 pg (25.0-34.0); Mean Corpuscular Hgb Conc 33.6 g/dL (32.0-36.0); Mean Corpuscular Volume 85.4 fL (80.0-100.0); Mean Platelet Volume 9.5 fL (9.4-12.3); Platelet Count 220 K/uL (130-400); RDW Coefficient of Variation 13.4 % (11.5-14.5); RDW Standard Deviation 41.8 fL (36.4-46.3); Red Blood Count 3.97 M/uL (3.93-5.22); White Blood Count 5.72 K/ul (4.8-10.8)
[2022-03-09] MEDS: ENOXAPARIN INJ 40 MG/0.4 ML SYR SQ SCH (08:31)
--- NOTE | 2022-03-09 17:01 | Discharge Summary ---
Date of Service March 09, 2022 Admission HPI Per Admitting Provider This is a 61-year-old female with a history of RLE cellulitis (previously requiring CFTX, vanc, and clinda) who presented to [facility] for evaluation of R ankle discomfort. Patient stated that beginning several days ago, she began developing redness and swelling within the right ankle. No known triggers or injuries or recent wounds on the foot/ankle. She noted to her ED provider at that it felt very similar to her prior episode of cellulitis, which was also on the RLE but more along the posterior calf. She does endorse sensation of fevers and chills, as well as headache since yesterday. She also endorses some mild abdominal pain. Denies nausea, vomiting, chest pain, palpitations, SOB. Denies history of blood clots or MRSA. She denies being on home medications. NKDA. Denies alcohol or tobacco use. In the ED, she was found to have a mildly elevated pulse at 98, and an admission temperature of 37.8. Her admission labs demonstrated a white count of 13 with left shift, mild hyponatremia 134, mild hypokalemia 3.4, ESR normal, CRP 1.43, Pro-Mitchel normal 0.13. Blood cultures were collected. She was given cefepime and vancomycin. Principal Diagnosis cellulitis Discharge Exam The patient is awake, alert and oriented 3, well developed and well nourished, normocephalic and atraumatic, lying in bed and in no acute distress. HEENT--PERRL, EOMI, mucous membranes and oropharynx mildly dry Neck--supple. No JVD. No bruits. Thyroid normal, trachea midline, no adenopathy. Heart--normal S1 and S2. No murmurs, rubs or gallops. Lungs--clear bilaterally, no respiratory distress, no accessory muscle use. Abdomen--normal bowel sounds and soft. Mild epigastric and left sided abdominal pain Extremities--right leg redness, swelling Dermatologic--right leg redness. Neurologic--cranial nerves II through XII grossly intact. Rheumatologic--normal range of motion. Psychiatric--normal affect. Discharge Data Allergies Allergy/AdvReac Type Severity Reaction Status Date / Time No Known Allergies Allergy Verified 12/02/20 09:46 Consultations 03/01/22 01:26 ED Decision to Admit Stat 03/04/22 15:33 Consult Orthopedic Surgery Routine Ordered Studies 03/02/22 09:03 CT ankle RT w con Urgent 03/04/22 10:04 MR ankle RT wo/w con Urgent 03/08/22 14:39 MR ankle RT wo con Routine Hospital Course (1) Cellulitis of right leg: - Failed outpatient management -MRI shows evidence of cellulitis, with questionable pus build up, no evidence of osteomyelitis -Repeat MRI still did not show any drainable abscess -Will d/c on oral augmentin and Bactrim -Outpatient follow up with ortho upon d/c (2) Sepsis: As above - RESOLVED (3) Abdominal pain: - Resolved Plan Hopefully d/c on Oral antibiotics in the next 24-48 hrs Total Time Total Time Spent Total Time Spent (In Minutes): 35 Discharge Plan Discharge Items Patient Disposition: Home - Self-Care Reason For Visit: CELLULITIS Discharge Diagnosis: cellulitis Activity: Resume your previous activity Non-emergency contact: Primary Care Provider Call non-emergency contact if: you have any medication questions Follow-up/Referrals: Maral Cash CRNP [Primary Care Provider] - 03/16/22 10:30 am Diet: Regular Addtl Attending Provider Instructions: please make appointment to follow up with your regular PCP Pending Studies at Discharge: No Stand-Alone Forms: [employer], Smoking Cessation Medications and DC Order Prescriptions: No Action No Known Home Medications Discharge Orders: Discharge Order (Routine); Ordered 03/09/22 Ordered By: Marlyn Borges Admission Data Admit Date/Time: 03/01/22 03:15 Attending Provider: Marlyn Borges Admit Provider: Michael Pereira Primary Care Provider: Maral Cash Other Providers: Huber Ramirez ; Lalit Saldana Other Interventions: Discharge Summary Assessment (RN) Last Done: 03/09/22 15:44 Coding Level of Care Code D/C DAY MANAGEMENT >30 MINS Diagnoses Cellulitis of right leg L03.115 Sepsis A41.9 Abdominal pain R10.9 Time Spent (min) 35
== END 2022-03-09 17:23 | disposition home or self-care (01) | DRG 872 ==
LOC: ED 22:43 → SUATTDRO 03-01 03:15 → 3W 03-01 03:15

== ENCOUNTER 2023-12-13 11:39 | Inpatient (IN) ==
--- NOTE | 2023-12-13 12:11 | Emergency Department Note ---
Impression & Plan Cellulitis DC ED Provider Note HPI: History obtained from patient. The patient is a 63-year-old Akira female with history of osteoarthritis, presents the emergency department with a chief complaint of swelling and erythema to the distal left lower extremity x 1 day. Patient states she also had a fever yesterday. Patient states she also developed a headache from last evening into today. Patient states she has had cellulitis in the past and this feels similar. On arrival here to the ED the patient is hemodynamically stable, she is afebrile on arrival, she is otherwise saturating well on room air. Patient denies any chest pain or shortness of breath, on arrival here to the ED the patient is alert and oriented x 3. She does not have any focal deficits. ROS: - Per HPI Differential Diagnosis: Cellulitis, sepsis, cranial hemorrhage, stroke, meningitis, encephalitis, migraine, tension headache, amongst other potential pathologies. *Outpatient medications and allergy history reviewed. 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 Lab work shows a mild leukocytosis at 11.96, hemoglobin is normal, platelet count is normal, CMP shows mild hypokalemia at 3.2, lactic acid is normal, magnesium is normal, troponin is negative. Procalcitonin level is elevated at 4.98, urinalysis does not show any evidence of infection. CT imaging of the head was obtained that showed nonspecific hypodensities and MRI of the brain was recommended. MRI was obtained that shows likely microvascular small vessel changes without evidence of acute hemorrhage or stroke. I have low suspicion for meningitis at this time, patient otherwise is alert and oriented without meningitic findings on exam. Source of infection would likely otherwise be cellulitis of the left lower extremity which the patient states developed before she developed a headache. On my reassessment the patient remained stable but generally does not feel well, given findings on physical examination I do of concern for sepsis possibly in the early stages secondary to cellulitic changes of the left lower extremity. Patient was therefore started on IV vancomycin and IV cefepime. I discussed admission to the hospital and the patient was in agreement. Case was then discussed with the on-call hospitalist, Dr. Carter, and the patient was placed for admission in stable condition. Consultants/Discussions held with other healthcare providers: -Hospitalist, Dr. Carter Disposition discussion held by myself with: -Patient Diagnosis: 1. Cellulitis of the left lower extremity, acute 2. Headache, acute, not intractable 3. Elevated procalcitonin 4. Leukocytosis, acute Disposition: Admission Domingo Palomo DO Emergency Medicine Past Med/Surg History Problem List (Updated 12/13/23 @ 18:17 by Domingo Palomo DO) Cellulitis (Acute) Headache Left leg cellulitis Dyskinesis of left scapula Osteoarthritis of left hip Shoulder pain, left Knee pain, left Pain of left scapula Hypokalemia Leukocytosis Abdominal pain Osteoarthritis of both knees Tear of medial meniscus of right knee Chondromalacia, right knee Right knee pain Cellulitis of right leg (Acute) Common bile duct dilation (Acute) Elevated lactic acid level (Acute) Sepsis Symptomatic cholelithiasis Medical History (Updated 12/13/23 @ 18:17 by Domingo Palomo DO) HTN (hypertension) Family History (Updated 09/30/23 @ 14:16 by Yana Campos LPN) Brother Colorectal cancer Other Gallbladder disease Lung disease Seizure Denies family history of Ovarian cancer Prostate cancer Myocardial infarction Breast cancer Social History (Updated 09/30/23 @ 14:18 by Yana Campos LPN) Smoking Status: Never smoker Second Hand Exposure: No; Do You Dip or Chew Tobacco: No; Hx Alcohol Use: No Hx Substance Use: No Preferred Language: Senegalese Communication Ability: Effective Site Reliability Engineer Required: No Beliefs That Will Affect Care: None marital status: Current Living Situation: Spouse Current Living Situation Comment: and children current occupational status: other 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 How many Children do You have: 7 Feels Safe at Home: Yes Childhood Exposure to Second-Hand Smoke: No Diet: regular caffeine: Yes Dental Care, Regularly: No Physical Activity Frequency: Daily Seatbelt Use: always Sunscreen Use: No Assistive Devices: Wheelchair Allergies Allergies Allergy/AdvReac Type Severity Reaction Status Date / Time No Known Allergies Allergy Verified 09/30/23 14:14 Home Meds Home Medications Medication Instructions Recorded Confirmed No Known Home Medications 06/28/20 12/13/23 Results & Data (ED) Vital Signs Vital Signs - 24 hr 12/13/23 11:41 12/13/23 13:12 12/13/23 13:12 Temperature 36.9 C 36.8 C Temperature Source Temporal Artery Scan Oral Pulse Rate 72 76 Pulse Rate [Right Finger] 76 Pulse Rate from SpO2 Sensor Pulse Rhythm Regular Pulse Rhythm [Right Finger] Regular Pulse Strength [Right Finger] Normal Respiratory Rate 18 20 20 Respiratory Effort / Characteristics Non-Labored Spontaneous Non-Labored Spontaneous Respiratory Depth Normal Normal Respiratory Pattern Regular Blood Pressure 148/85 H Blood Pressure [Right Arm] 162/78 H Blood Pressure Mean 106 Blood Pressure Mean [Right Arm] 106 Blood Pressure Position Sitting Blood Pressure Position [Right Arm] Semi-fowlers Pulse Oximetry 96 98 98 Oxygen Delivery Method Room Air Room Air Room Air Sepsis Recent Fever Within 48 Hours No Sepsis New/Unexplained Change in Mental Status No Sepsis Action Taken by Nursing No Action Required 12/13/23 13:28 12/13/23 15:21 12/13/23 15:33 Temperature Temperature Source Pulse Rate 75 76 73 Pulse Rate [Right Finger] Pulse Rate from SpO2 Sensor 76 74 Pulse Rhythm Pulse Rhythm [Right Finger] Pulse Strength [Right Finger] Respiratory Rate 18 16 Respiratory Effort / Characteristics Respiratory Depth Respiratory Pattern Blood Pressure 139/68 153/74 H Blood Pressure [Right Arm] Blood Pressure Mean 91 100 Blood Pressure Mean [Right Arm] Blood Pressure Position Blood Pressure Position [Right Arm] Pulse Oximetry 96 94 Oxygen Delivery Method Room Air Room Air Sepsis Recent Fever Within 48 Hours Sepsis New/Unexplained Change in Mental Status Sepsis Action Taken by Nursing 12/13/23 16:00 12/13/23 16:42 Temperature Temperature Source Pulse Rate 76 74 Pulse Rate [Right Finger] Pulse Rate from SpO2 Sensor 76 75 Pulse Rhythm Pulse Rhythm [Right Finger] Pulse Strength [Right Finger] Respiratory Rate 20 16 Respiratory Effort / Characteristics Respiratory Depth Respiratory Pattern Blood Pressure 149/70 H 141/66 H Blood Pressure [Right Arm] Blood Pressure Mean 96 91 Blood Pressure Mean [Right Arm] Blood Pressure Position Blood Pressure Position [Right Arm] Pulse Oximetry 94 93 Oxygen Delivery Method Room Air Room Air Sepsis Recent Fever Within 48 Hours Sepsis New/Unexplained Change in Mental Status Sepsis Action Taken by Nursing Laboratory Data 12/13/23 12:00 12/13/23 12:00 Lab Results 12/13/23 12/13/23 12/13/23 Range/Units 12:00 12:29 14:03 WBC 11.96 H (4.8-10.8) K/ul RBC 4.64 (4.20-5.40) M/uL Hgb 13.7 (12.0-16.0) g/dl Hct 39.2 (37.0-47.0) % MCV 84.5 (80.0-100.0) fL MCH 29.5 (25.0-34.0) pg MCHC 34.9 (32.0-36.0) g/dL RDW Std Deviation 38.8 (36.4-46.3) fL RDW Coeff of Jerry 12.7 (11.5-14.5) % Plt Count 138 (130-400) K/uL MPV 11.3 (9.4-12.4) fL Immature Gran % (Auto) 0.5 % Neut % (Auto) 94.5 % Lymph % (Auto) 3.4 % Knott % (Auto) 1.4 % Eos % (Auto) 0.0 % Baso % (Auto) 0.2 % Neut # (Auto) 11.30 H (1.40-6.50) K/uL Lymph # (Auto) 0.41 L (1.20-3.40) K/uL Knott # (Auto) 0.17 (0.11-0.59) K/uL Eos # (Auto) 0.00 (0.00-0.50) K/uL Baso # (Auto) 0.02 (0.00-0.20) K/uL Immature Gran # (Auto) 0.06 (0.01-0.20) K/uL ESR 27 (0-30) mm/hr PT 11.8 (9.0-12.0) Seconds INR 1.1 (0.9-1.1) Sodium 132 L (136-145) mmol/L Potassium 3.2 L (3.5-5.1) mmol/L Chloride 97 L (98-107) mmol/L Carbon Dioxide 28 (21-32) mmol/L Anion Gap 7 (3-11) BUN 21 (6-23) mg/dl Creatinine 0.83 (0.6-1.2) mg/dl Est Cr Clr Drug Dosing Not Reportable Est GFR ( Amer) 87.6 ml/min Est GFR (Non-Af Amer) 75.6 ml/min BUN/Creatinine Ratio 25.3 H (10-20) Glucose 103 H (70-99(Fasting)) mg/dl Lactate 1.4 (0.4-2.0) mmol/L Calcium 9.4 (8.6-10.3) mg/dl Magnesium 2.0 (1.7-2.4) mg/dl Total Bilirubin 0.9 (0.2-1.0) mg/dl Direct Bilirubin 0.1 (0-0.2) mg/dl AST 27 (13-39) U/L ALT 26 (7-52) U/L Alkaline Phosphatase 59 (34-104) U/L Troponin I High Sens 4.0 (0-14) pg/ml C-Reactive Protein 20.95 H (0-0.5) mg/dl B-Natriuretic Peptide (0-100) pg/ml Total Protein 7.4 (6.0-8.3) gm/dl Albumin 4.2 (3.4-5.0) gm/dl Procalcitonin 4.98 H (0-0.5) ng/ml Urine Color Urine Appearance (Clear) Urine pH (4.5-7.5) Ur Specific [place] (1.000-1.030) Urine Protein (Negative) Urine Glucose (UA) (Negative) Urine Ketones (Negative) Urine Blood (Negative) Urine Nitrite (Negative) Urine Bilirubin (Negative) Urine Urobilinogen (Negative) Ur Leukocyte Esterase (Negative) 07/01/24 07/01/24 Range/Units 16:59 17:13 WBC (4.8-10.8) K/ul RBC (4.20-5.40) M/uL Hgb (12.0-16.0) g/dl Hct (37.0-47.0) % MCV (80.0-100.0) fL MCH (25.0-34.0) pg MCHC (32.0-36.0) g/dL RDW Std Deviation (36.4-46.3) fL RDW Coeff of Jerry (11.5-14.5) % Plt Count (130-400) K/uL MPV (9.4-12.4) fL Immature Gran % (Auto) % Neut % (Auto) % Lymph % (Auto) % Knott % (Auto) % Eos % (Auto) % Baso % (Auto) % Neut # (Auto) (1.40-6.50) K/uL Lymph # (Auto) (1.20-3.40) K/uL Knott # (Auto) (0.11-0.59) K/uL Eos # (Auto) (0.00-0.50) K/uL Baso # (Auto) (0.00-0.20) K/uL Immature Gran # (Auto) (0.01-0.20) K/uL ESR (0-30) mm/hr PT (9.0-12.0) Seconds INR (0.9-1.1) Sodium (136-145) mmol/L Potassium (3.5-5.1) mmol/L Chloride (98-107) mmol/L Carbon Dioxide (21-32) mmol/L Anion Gap (3-11) BUN (6-23) mg/dl Creatinine (0.6-1.2) mg/dl Est Cr Clr Drug Dosing Est GFR ( Amer) ml/min Est GFR (Non-Af Amer) ml/min BUN/Creatinine Ratio (10-20) Glucose (70-99(Fasting)) mg/dl Lactate (0.4-2.0) mmol/L Calcium (8.6-10.3) mg/dl Magnesium (1.7-2.4) mg/dl Total Bilirubin (0.2-1.0) mg/dl Direct Bilirubin (0-0.2) mg/dl AST (13-39) U/L ALT (7-52) U/L Alkaline Phosphatase (34-104) U/L Troponin I High Sens (0-14) pg/ml C-Reactive Protein (0-0.5) mg/dl B-Natriuretic Peptide 122 H (0-100) pg/ml Total Protein (6.0-8.3) gm/dl Albumin (3.4-5.0) gm/dl Procalcitonin (0-0.5) ng/ml Urine Color Yellow Urine Appearance Clear (Clear) Urine pH 5.0 (4.5-7.5) Ur Specific [place] 1.014 (1.000-1.030) Urine Protein Negative (Negative) Urine Glucose (UA) Negative (Negative) Urine Ketones Negative (Negative) Urine Blood Negative (Negative) Urine Nitrite Negative (Negative) Urine Bilirubin Negative (Negative) Urine Urobilinogen Negative (Negative) Ur Leukocyte Esterase Negative (Negative) Administered Medications Discontinued Medications Sodium Chloride (Nss) 500 mls @ 999 mls/hr IV .Q31M LUIZ Stop: 12/13/23 12:45 Last Infusion: 12/13/23 15:41 Dose: Infused Documented By: Admin: 12/13/23 13:08 Dose: 999 mls/hr Documented By: JOAQUIM Cefepime HCl (Maxipime) 2,000 mg in 20 mls @ 5 mls/min IV NOW STA; Protocol Stop: 12/13/23 15:34 Last Admin: 12/13/23 15:45 Dose: 5 mls/min Documented By: LADONNA Vancomycin HCl 1,750 mg/ (Sodium Chloride) 535 mls @ 200 mls/hr IV NOW ONE Stop: 12/13/23 18:11 Last Admin: 12/13/23 15:49 Dose: 200 mls/hr Documented By: LADONNA Morphine Sulfate (Morphine Sulfate 4 Mg/Ml 1 Ml Carp\Vial) 4 mg IV NOW STA Stop: 12/13/23 13:19 Last Admin: 12/13/23 13:33 Dose: 4 mg Documented By: LYUBOV Ondansetron HCl (Ondansetron Inj 2 Mg/Ml 2 Ml Vial) 4 mg IV NOW STA Stop: 12/13/23 13:19 Last Admin: 12/13/23 13:33 Dose: 4 mg Documented By: LKD Potassium Chloride (Potassium Chloride Crtab 20 Meq Tabcr) 40 meq PO NOW STA Stop: 12/13/23 12:58 Last Admin: 12/13/23 13:08 Dose: 40 meq Documented By: CAW Imaging Data Radiologist's Impression: Head CT 12/13/23 12:09 CT OF THE HEAD WITHOUT CONTRAST CLINICAL HISTORY: Headache. COMPARISON STUDY: No previous studies for comparison. CT DOSE: 547.75 mGy.cm TECHNIQUE: Helical axial images of the head were obtained without IV contrast. Automated exposure control was utilized for the study. A dose lowering technique was utilized adhering to the principles of ALARA. FINDINGS: No acute intracranial hemorrhage, midline shift or mass effect is present. Brain volume is normal. Ventricular system is normal. Basal cisterns are patent. There are no extra axial collections. Moderate white matter hypodensities are present. These are predominantly parieto-occipital in distribution. There is apparent hypodensity within the cerebellar hemispheres, likely artifactual. IMPRESSION: 1. No acute intracranial hemorrhage. 2. Moderate white matter hypodensities, predominantly parieto-occipital in distribution. These statistically reflect small vessel disease. However, the distribution is somewhat unusual and other etiologies such as posterior reversible encephalopathy syndrome cannot be completely excluded. If persistent symptoms, MRI might be considered. 3. Apparent cerebellar hypodensity, likely artifactual however could be assessed by MRI as indicated. ACT 112: Negative or not required by law. Electronically signed by: Brant Nieves M.D. 12/13/2023 12:52 PM Tibia/Fibula X-Ray 12/13/23 12:09 XR tibia fibula LT 2V CLINICAL HISTORY: swelling/cellulitis lower leg TECHNIQUE: 2 radiographic views of the left leg were obtained. Comparison: Comparison is made to left knee radiographs 10/01/2023 FINDINGS: There is no evidence of an acute fracture. Joint spaces are well-preserved. Soft tissue swelling is seen. IMPRESSION: Soft tissue swelling is seen. No focal erosions are seen to suggest osteomyelitis. ACT 112: Negative or not required by law. Electronically signed by: Hubert Granda M.D. 12/13/2023 1:10 PM Venous Doppler Study 12/13/23 12:09 LEFT LOWER EXTREMITY VENOUS DOPPLER CLINICAL HISTORY: swelling/pain eval for dvt COMPARISON STUDY: Bilateral lower extremity venous Doppler ultrasound February 04, 2017. TECHNIQUE: Sonography of the deep venous system of the left lower extremity was performed. Compression and augmentation were evaluated. FINDINGS: The left common femoral, superficial femoral and popliteal veins were compressible. Augmentation was normal. Flow was shown within the deep calf vessels. A prominent left inguinal lymph node has benign imaging characteristics. IMPRESSION: No evidence of deep venous thrombus within the left lower extremity. ACT 112: Negative or not required by law. Electronically signed by: Brant Nieves M.D. 12/13/2023 3:36 PM Brain MRI 12/13/23 12:58 Brain MRI WITHOUT CONTRAST HISTORY: Headache, abnormal CTH w/o TECHNIQUE: Multiplanar multisequence MRI of the brain was performed without the use of contrast. COMPARISON STUDY: Head CT 12/13/2023. FINDINGS: There is no mass, hematoma, midline shift, or acute infarct. The paranasal sinuses are clear. The mastoid air cells are clear. The ventricles and sulci demonstrate mild age-related involutional changes. Scattered foci of T2 hyperintensity seen within the periventricular and subcortical white matter are nonspecific but suggestive of moderate microvascular ischemic changes. The major vascular flow voids at the skull base are well-maintained. Mild mucosal thickening within the ethmoid air cells. The remaining paranasal sinuses are clear. The orbits are unremarkable. Normal signal intensity within the cerebellum. IMPRESSION: 1. No acute infarct or intracranial hemorrhage. 2. Scattered foci of T2 hyperintensity seen within the periventricular and subcortical white matter are nonspecific but favor moderate microvascular ischemic change. A demyelinating disease, Lyme disease, or migraines are also in the differential diagnosis but are considered less likely. ACT 112: Negative or not required by law. Electronically signed by: Jose Antonio Hills M.D. 12/13/2023 3:04 PM Discharge Plan Visit Data Chief Complaint: Headache Stated Complaint: CELLUTIS, LEG PAIN, HEADACHE ED Provider: Domingo Palomo Discharge Problem: Cellulitis Forms Stand Alone Forms: [place] Prescriptions Prescriptions: No Action No Known Home Medications Referrals Referrals: Ronda Goodwin MD [Primary Care Provider] - Discharge Problem: Cellulitis Qualifiers: Site of cellulitis: extremity Site of cellulitis of extremity: lower extremity Laterality: left Qualified Code(s): L03.116 - Cellulitis of left lower limb
[2023-12-13 12:35] LABS: INR 1.1 (0.9-1.1); Prothrombin Time 11.8 Seconds (9.0-12.0)
[2023-12-13 12:48] LABS: Alanine Aminotransferase 26 U/L (7-52); Albumin Level 4.2 gm/dl (3.4-5.0); Alkaline Phosphatase 59 U/L (34-104); Anion Gap 7 (3-11); Aspartate Aminotransferase 27 U/L (13-39); BUN Creatinine Ratio 25.3 (10-20); Bilirubin Direct 0.1 mg/dl (0-0.2); Bilirubin,Total 0.9 mg/dl (0.2-1.0); Blood Urea Nitrogen 21 mg/dl (6-23); Calcium 9.4 mg/dl (8.6-10.3); Carbon Dioxide 28 mmol/L (21-32); Chloride 97 mmol/L (98-107); Est GFR (African American) 87.6 ml/min; Est GFR (Non-African American) 75.6 ml/min; Glucose 103 mg/dl (70-99(Fasting)); Potassium 3.2 mmol/L (3.5-5.1); Sodium 132 mmol/L (136-145); Total Protein 7.4 gm/dl (6.0-8.3)
[2023-12-13 12:52] LABS: Hematocrit (blood only) 39.2 % (37.0-47.0); Hemoglobin 13.7 g/dl (12.0-16.0); Mean Corpuscular Hemoglobin 29.5 pg (25.0-34.0); Mean Corpuscular Hgb Conc 34.9 g/dL (32.0-36.0); Mean Corpuscular Volume 84.5 fL (80.0-100.0); Mean Platelet Volume 11.3 fL (9.4-12.4); Platelet Count 138 K/uL (130-400); RDW Coefficient of Variation 12.7 % (11.5-14.5); RDW Standard Deviation 38.8 fL (36.4-46.3); Red Blood Count 4.64 M/uL (4.20-5.40); White Blood Count 11.96 K/ul (4.8-10.8)
--- NOTE | 2023-12-13 12:53 | CT Scan Report ---
CT OF THE HEAD WITHOUT CONTRAST CLINICAL HISTORY: Headache. COMPARISON STUDY: No previous studies for comparison. CT DOSE: 547.75 mGy.cm TECHNIQUE: Helical axial images of the head were obtained without IV contrast. Automated exposure con trol was utilized for the study. A dose lowering technique was utilized adhering to the principles o f ALARA. FINDINGS: No acute intracranial hemorrhage, midline shift or mass effect is present. Brain volume is normal. Ventricular system is normal. Basal cisterns are patent. There are no extra axial collections . Moderate white matter hypodensities are present. These are predominantly parieto-occipital in distr ibution. There is apparent hypodensity within the cerebellar hemispheres, likely artifactual. IMPRESSION: 1. No acute intracranial hemorrhage. 2. Moderate white matter hypodensities, predominantly parieto-occipital in distribution. These statis tically reflect small vessel disease. However, the distribution is somewhat unusual and other etiolog ies such as posterior reversible encephalopathy syndrome cannot be completely excluded. If persistent symptoms, MRI might be considered. 3. Apparent cerebellar hypodensity, likely artifactual however could be assessed by MRI as indicated. ACT 112: Negative or not required by law. Electronically signed by: Brant Nieves M.D. 12/13/2023 12:52 PM
[2023-12-13] MEDS: POTASSIUM CHLORIDE CRTAB 20 MEQ TABCR PO STA (13:08)
[2023-12-13] MEDS: SODIUM CHLORIDE 0.9% 500 ML IV SCH (13:08)
--- NOTE | 2023-12-13 13:11 | XRay Report ---
XR tibia fibula LT 2V CLINICAL HISTORY: swelling/cellulitis lower leg TECHNIQUE: 2 radiographic views of the left leg were obtained. Comparison: Comparison is made to left knee radiographs 10/01/2023 FINDINGS: There is no evidence of an acute fracture. Joint spaces are well-preserved. Soft tissue swelling is s een. IMPRESSION: Soft tissue swelling is seen. No focal erosions are seen to suggest osteomyelitis. ACT 112: Negative or not required by law. Electronically signed by: Hubert Granda M.D. 12/13/2023 1:10 PM
[2023-12-13 13:16] LABS: Basophils # (auto) 0.02 K/uL (0.00-0.20); Basophils % (auto) 0.2 %; Immature Granulocytes # (auto) 0.06 K/uL (0.01-0.20); Immature Granulocytes % (auto) 0.5 %; Lymphocytes # (auto) 0.41 K/uL (1.20-3.40); Lymphocytes % (auto) 3.4 %; Monocytes # (auto) 0.17 K/uL (0.11-0.59); Monocytes % (auto) 1.4 %; Neutrophils % (auto) 94.5 %
[2023-12-13] MEDS: ONDANSETRON INJ 2 MG/ML 2 ML VIAL IV STA (13:33)
[2023-12-13] MEDS: MoRPHine SULFATE 4 MG/ML 1 ML CARP\\VIAL IV STA (13:33)
--- NOTE | 2023-12-13 15:06 | Magnetic Resonance Report ---
Brain MRI WITHOUT CONTRAST HISTORY: Headache, abnormal CTH w/o TECHNIQUE: Multiplanar multisequence MRI of the brain was performed without the use of contrast. COMPARISON STUDY: Head CT 12/13/2023. FINDINGS: There is no mass, hematoma, midline shift, or acute infarct. The paranasal sinuses are jigar r. The mastoid air cells are clear. The ventricles and sulci demonstrate mild age-related involutiona l changes. Scattered foci of T2 hyperintensity seen within the periventricular and subcortical white matter are nonspecific but suggestive of moderate microvascular ischemic changes. The major vascular flow voids at the skull base are well-maintained. Mild mucosal thickening within the ethmoid air cell s. The remaining paranasal sinuses are clear. The orbits are unremarkable. Normal signal intensity wi thin the cerebellum. IMPRESSION: 1. No acute infarct or intracranial hemorrhage. 2. Scattered foci of T2 hyperintensity seen within the periventricular and subcortical white matter a re nonspecific but favor moderate microvascular ischemic change. A demyelinating disease, Lyme diseas e, or migraines are also in the differential diagnosis but are considered less likely. ACT 112: Negative or not required by law. Electronically signed by: Jose Antonio Hills M.D. 12/13/2023 3:04 PM
[2023-12-13] MEDS ORDERED: VANCOMYCIN CONSULT ACTIVE PRN ×2 (15:31→19:36)
--- NOTE | 2023-12-13 15:37 | Ultrasound Report ---
LEFT LOWER EXTREMITY VENOUS DOPPLER CLINICAL HISTORY: swelling/pain eval for dvt COMPARISON STUDY: Bilateral lower extremity venous Doppler ultrasound February 04, 2017. TECHNIQUE: Sonography of the deep venous system of the left lower extremity was performed. Compressi on and augmentation were evaluated. FINDINGS: The left common femoral, superficial femoral and popliteal veins were compressible. Augmen tation was normal. Flow was shown within the deep calf vessels. A prominent left inguinal lymph node has benign imaging characteristics. IMPRESSION: No evidence of deep venous thrombus within the left lower extremity. ACT 112: Negative or not required by law. Electronically signed by: Brant Nieves M.D. 12/13/2023 3:36 PM
[2023-12-13] MEDS: CEFEPIME 2,000 MG/20 ML VIAL IV STA (15:45)
[2023-12-13] MEDS: VANCOMYCIN HCL 1,750 MG in SODIUM CHLORIDE 0.9% 500 ML IV ONE (15:49)
--- NOTE | 2023-12-13 15:53 | History & Physical Report ---
Date of Service December 13, 2023 Assessment & Plan (1) Left leg cellulitis: Plan: Acute onset of left lower extremity swelling and erythema around noon on 12/11; patient then developed fever/chills that night Hx of cellulitis; no recent injuries to the left leg Venous Doppler of the left lower extremity revealed no evidence of DVT Left tib-fib x-ray revealed soft tissue swelling but no focal erosions to suggest osteomyelitis Leukocytosis at 11.96 with neutrophil predominance; afebrile Elevated procalcitonin at 4.98 Continue vancomycin and cefepime Acetaminophen as needed for pain/fever A.m. CBC, BMP, CRP, A1c (2) Headache: Plan: Patient endorses a headache that developed around the same time on 12/11 No strokelike symptoms No history of stroke Head CT revealed moderate white matter hypodensities; ? Small vessel disease Brain MRI revealed no acute infarct or intracranial hemorrhage, but moderate microvascular ischemic changes (3) Abdominal pain: Plan: Patient endorses reproducible epigastric pain, that she reports resolved yesterday Low suspicion for cardiac etiology, but will obtain troponin If worsening, consider obtaining CT A/P (4) Hypokalemia: Plan: Mild; K 3.2 on arrival Potassium chloride 40mEq given Recheck a.m. K Plan Disposition: Admit to [facility] DNR/DNI Regular diet DVT PPx: Lovenox 40 mg SQ q24h History of Present Illness Chief Complaint: Headache, left leg cellulitis Primary Care Provider: Ronda Goodwin MD Judy is a 63-year-old female with PMH of UTI, sepsis, dyskinesia of left scapula, and osteoarthritis. She presented for worsening left lower extremity cellulitis that began around noon on 12/11. Patient does have a history of cellulitis in her right leg. She denies any recent injuries to her left lower extremity. She reports that she developed a fever last night around 102 F and took some Tylenol. She endorses pain in her left lower extremity that is 3/10 after receiving pain medicine in the ED. She describes it as a constant, dull, achy pain. No radiation above her knee. Patient does not take medications on a daily basis. No history of diabetes, CHF, or HTN to her knowledge. She also presented for a headache that started around noon yesterday when the cellulitis developed. No history of strokes, and she denies any strokelike symptoms such as slurred speech, facial droop, unilateral deficits, or changes in vision. She endorses epigastric pain yesterday, which resolved; no recent change in diet. Patient's vitals are stable at time of admission. ED course: Vancomycin 1750 mg IV Cefepime 2000 mg IV Morphine sulfate 4 mg IV Zofran 4 mg IV Potassium chloride 40 mill equivalents p.o. NSS 500 mL IV ROS: Patient endorses fever, chills, headache, abdominal pain (resolved), and pain in the left lower extremity. Patient denies night-sweats, dizziness, lightheadedness, rashes, tick bites, slurred speech, facial droop, unilateral deficits, change in vision, chest pain, SOB, cough, N/V/D, or changes in urinary/bowel habits. Allergies Allergy/AdvReac Type Severity Reaction Status Date / Time No Known Allergies Allergy Verified 09/30/23 14:14 Home Medications Medication Instructions Recorded Confirmed Type No Known Home Medications 06/28/20 12/13/23 History Past Med/Surg History Problem List (Updated 12/13/23 @ 18:17 by Domingo Palomo DO) Cellulitis (Acute) Headache Left leg cellulitis Dyskinesis of left scapula Osteoarthritis of left hip Shoulder pain, left Knee pain, left Pain of left scapula Hypokalemia Leukocytosis Abdominal pain Osteoarthritis of both knees Tear of medial meniscus of right knee Chondromalacia, right knee Right knee pain Cellulitis of right leg (Acute) Common bile duct dilation (Acute) Elevated lactic acid level (Acute) Sepsis Symptomatic cholelithiasis Medical History (Updated 12/13/23 @ 18:17 by Domingo Palomo DO) HTN (hypertension) Family History (Updated 09/30/23 @ 14:16 by Yana Campos LPN) Brother Colorectal cancer Other Gallbladder disease Lung disease Seizure Denies family history of Ovarian cancer Prostate cancer Myocardial infarction Breast cancer Social History (Updated 09/30/23 @ 14:18 by Yana Campos LPN) Smoking Status: Never smoker Second Hand Exposure: No; Do You Dip or Chew Tobacco: No; Tobacco Cessation Education Requested by Patient: No Hx Alcohol Use: No Hx Substance Use: No Preferred Language: Salvadorean Communication Ability: Effective Test Department Helper Required: No Beliefs That Will Affect Care: None marital status: Current Living Situation: Family Current Living Situation Comment: and children current occupational status: other 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 How many Children do You have: 7 Other Information That Helps Us Care for You: No Feels Safe at Home: Yes Safety Concerns: Feels Safe At This Time Childhood Exposure to Second-Hand Smoke: No Diet: regular caffeine: Yes Dental Care, Regularly: No Physical Activity Frequency: Daily Seatbelt Use: always Sunscreen Use: No Assistive Devices: Walker Review of Systems 2 Review of Systems: See HPI above Physical Exam 2 Physical Exam: General: no acute distress; non-toxic appearing; well-nourished; cooperative; SpO2 96% on RA HEENT: normocephalic, atraumatic; no scleral icterus; PERRLA w/ EOMs intact; moist mucus membrane; vision and hearing grossly intact Neck: supple; no lymphadenopathy; trachea midline Skin: warm, dry without signs of tenting; no cyanosis; no rashes, bruising, lesions, or erythema noted CV: chest wall NTP; RRR; S1/S2 normal; no murmurs/rubs/gallops; pulses intact and symmetric at radial, DP, and PT Lungs: no acute respiratory distress; symmetrical chest wall expansion; clear breath sounds across all lung atkins w/o adventitious sounds; no wheezing ABD: Soft, NTP; BS present; no rebound/guarding; no distention MSK: no tics or fasciculations; no edema noted in the LEs b/l LLE: Erythematous, and warm to touch circumferentially extending from the ankle to the knee (see photos below) Neuro: A&Ox3; normal mood and affect; fluent speech; no focal deficits; sensation grossly intact in the LEs b/l Results & Data Results & Data Vital Signs (Past 12 Hours) Vital Signs Temp Pulse Pulse Resp BP BP Pulse Ox 12/13/23 15:21 76 18 139/68 96 12/13/23 13:28 75 12/13/23 13:12 76 20 98 12/13/23 13:12 36.8 C 76 20 162/78 H 98 12/13/23 11:41 36.9 C 72 18 148/85 H 96 O2 Del Method 12/13/23 15:21 Room Air 12/13/23 13:28 12/13/23 13:12 Room Air 12/13/23 13:12 Room Air 12/13/23 11:41 Room Air Laboratory Results Abnormal lab results 12/13/23 Range/Units 12:00 WBC 11.96 H (4.8-10.8) K/ul Neut # (Auto) 11.30 H (1.40-6.50) K/uL Lymph # (Auto) 0.41 L (1.20-3.40) K/uL Sodium 132 L (136-145) mmol/L Potassium 3.2 L (3.5-5.1) mmol/L Chloride 97 L (98-107) mmol/L BUN/Creatinine Ratio 25.3 H (10-20) Glucose 103 H (70-99(Fasting)) mg/dl Procalcitonin 4.98 H (0-0.5) ng/ml Diagnostic Findings Head CT 12/13/23 12:09 CT OF THE HEAD WITHOUT CONTRAST CLINICAL HISTORY: Headache. COMPARISON STUDY: No previous studies for comparison. CT DOSE: 547.75 mGy.cm TECHNIQUE: Helical axial images of the head were obtained without IV contrast. Automated exposure control was utilized for the study. A dose lowering technique was utilized adhering to the principles of ALARA. FINDINGS: No acute intracranial hemorrhage, midline shift or mass effect is present. Brain volume is normal. Ventricular system is normal. Basal cisterns are patent. There are no extra axial collections. Moderate white matter hypodensities are present. These are predominantly parieto-occipital in distribution. There is apparent hypodensity within the cerebellar hemispheres, likely artifactual. IMPRESSION: 1. No acute intracranial hemorrhage. 2. Moderate white matter hypodensities, predominantly parieto-occipital in distribution. These statistically reflect small vessel disease. However, the distribution is somewhat unusual and other etiologies such as posterior reversible encephalopathy syndrome cannot be completely excluded. If persistent symptoms, MRI might be considered. 3. Apparent cerebellar hypodensity, likely artifactual however could be assessed by MRI as indicated. ACT 112: Negative or not required by law. Electronically signed by: Brant Nieves M.D. 12/13/2023 12:52 PM Tibia/Fibula X-Ray 12/13/23 12:09 XR tibia fibula LT 2V CLINICAL HISTORY: swelling/cellulitis lower leg TECHNIQUE: 2 radiographic views of the left leg were obtained. Comparison: Comparison is made to left knee radiographs 10/01/2023 FINDINGS: There is no evidence of an acute fracture. Joint spaces are well-preserved. Soft tissue swelling is seen. IMPRESSION: Soft tissue swelling is seen. No focal erosions are seen to suggest osteomyelitis. ACT 112: Negative or not required by law. Electronically signed by: Hubert Granda M.D. 12/13/2023 1:10 PM Venous Doppler Study 12/13/23 12:09 LEFT LOWER EXTREMITY VENOUS DOPPLER CLINICAL HISTORY: swelling/pain eval for dvt COMPARISON STUDY: Bilateral lower extremity venous Doppler ultrasound February 04, 2017. TECHNIQUE: Sonography of the deep venous system of the left lower extremity was performed. Compression and augmentation were evaluated. FINDINGS: The left common femoral, superficial femoral and popliteal veins were compressible. Augmentation was normal. Flow was shown within the deep calf vessels. A prominent left inguinal lymph node has benign imaging characteristics. IMPRESSION: No evidence of deep venous thrombus within the left lower extremity. ACT 112: Negative or not required by law. Electronically signed by: Brant Nieves M.D. 12/13/2023 3:36 PM Brain MRI 12/13/23 12:58 Brain MRI WITHOUT CONTRAST HISTORY: Headache, abnormal CTH w/o TECHNIQUE: Multiplanar multisequence MRI of the brain was performed without the use of contrast. COMPARISON STUDY: Head CT 12/13/2023. FINDINGS: There is no mass, hematoma, midline shift, or acute infarct. The paranasal sinuses are clear. The mastoid air cells are clear. The ventricles and sulci demonstrate mild age-related involutional changes. Scattered foci of T2 hyperintensity seen within the periventricular and subcortical white matter are nonspecific but suggestive of moderate microvascular ischemic changes. The major vascular flow voids at the skull base are well-maintained. Mild mucosal thickening within the ethmoid air cells. The remaining paranasal sinuses are clear. The orbits are unremarkable. Normal signal intensity within the cerebellum. IMPRESSION: 1. No acute infarct or intracranial hemorrhage. 2. Scattered foci of T2 hyperintensity seen within the periventricular and subcortical white matter are nonspecific but favor moderate microvascular ischemic change. A demyelinating disease, Lyme disease, or migraines are also in the differential diagnosis but are considered less likely. ACT 112: Negative or not required by law. Electronically signed by: Jose Antonio Hills M.D. 12/13/2023 3:04 PM ECG Additional Comments: ECG revealed NSR at 69 bpm; QTc 428 Code Status & VTE Plan Code Status DNR/DNI VTE Prophylaxis Plan VTE Prophylaxis will be ordered: Yes Supervising Physician Co-Signing Physician Notes Patient was seen and examined in the emergency room, presents with left lower extremity swelling and erythema, fever, diagnosed with recurrent cellulitis, she was started on IV antibiotics in the ER, she had a CT and MRI of the brain, she was complaining of severe headache, no acute findings Plan Will admit her to [facility] IV antibiotics Monitor for erythema for improvement HTN Patient possibly might have high blood pressure is elevated in the ER Will start lisinopril Monitor blood pressure OA Severe osteoarthritis, pain medicine, patient was offered knee replacement surgery but she declined DVT prophylaxis Agree with above assessment and plan PG Care Time/CCT Total # of Minutes Spent Total Time Spent with Patient: Total time spent is greater than 50% in coordination of care (as documented) at patient's floor/unit and/or counseling patient: Coding [place] [address] INT INP/OBS CARE 2/55MIN Patient Type Established Medical Decision Making Moderate Complexity Diagnoses Left leg cellulitis L03.116 Headache R51.9 Abdominal pain R10.9 Hypokalemia E87.6
[2023-12-13 16:20] LABS: C Reactive Protein 20.95 mg/dl (0-0.5)
[2023-12-13 17:24] LABS: Appearance Urine Clear (Clear); Bilirubin Urine Negative (Negative); Blood Urine Negative (Negative); Color Urine Yellow; Glucose Urine UA Negative (Negative); Ketones Urine Negative (Negative); Leukocyte Esterase Urine Negative (Negative); Nitrite Urine Negative (Negative); Protein Urine Negative (Negative); Specific Gravity Urine 1.014 (1.000-1.030); Urobilinogen Urine Negative (Negative)
[2023-12-13] MEDS ORDERED: ONDANSETRON INJ 2 MG/ML 2 ML VIAL IV PRN (19:36)
[2023-12-13] MEDS ORDERED: MELATONIN 3 MG TAB PO PRN (19:36)
[2023-12-13] MEDS: ENOXAPARIN INJ 40 MG/0.4 ML SYR SQ SCH (20:25)
[2023-12-13] MEDS: lisinopril 5 MG TAB PO ONE (20:26)
[2023-12-13] MEDS: ACETAMINOPHEN 325 MG TAB PO PRN (23:27)
[2023-12-13] MEDS: CEFEPIME 2,000 MG in SYRINGE 0 ML IV SCH (23:28)
[2023-12-14] MEDS: VANCOMYCIN HCL 1,000 MG in SODIUM CHLORIDE 0.9% 250 ML IV SCH (03:03)
[2023-12-14] MEDS ORDERED: VANCOMYCIN HCL 1,250 MG in SODIUM CHLORIDE 0.9% 500 ML IV SCH (04:00)
[2023-12-14 07:30] LABS: Hematocrit (blood only) 34.7 % (37.0-47.0); Hemoglobin 11.9 g/dl (12.0-16.0); Mean Corpuscular Hemoglobin 29.6 pg (25.0-34.0); Mean Corpuscular Hgb Conc 34.3 g/dL (32.0-36.0); Mean Corpuscular Volume 86.3 fL (80.0-100.0); Mean Platelet Volume 11.1 fL (9.4-12.4); Platelet Count 98 K/uL (130-400); RDW Coefficient of Variation 12.9 % (11.5-14.5); Red Blood Count 4.02 M/uL (4.20-5.40); White Blood Count 8.04 K/ul (4.8-10.8)
[2023-12-14 07:55] LABS: Estimated Average Glucose 103 mg/dl; Hemoglobin A1C 5.2 % (4.5-5.6)
[2023-12-14 08:04] LABS: Basophils # (auto) 0.01 K/uL (0.00-0.20); Basophils % (auto) 0.1 %; Immature Granulocytes # (auto) 0.07 K/uL (0.01-0.20); Immature Granulocytes % (auto) 0.9 %; Lymphocytes # (auto) 0.53 K/uL (1.20-3.40); Lymphocytes % (auto) 6.6 %; Monocytes # (auto) 0.34 K/uL (0.11-0.59); Monocytes % (auto) 4.2 %; Neutrophils # (auto) 7.09 K/uL (1.40-6.50); Neutrophils % (auto) 88.2 %
[2023-12-14 08:07] LABS: Calcium 8.3 mg/dl (8.6-10.3)
[2023-12-14 08:13] LABS: BUN Creatinine Ratio 25.6 (10-20); C Reactive Protein 23.9 mg/dl (0-0.5); Creatinine Clr Calc Pharmacy 79.8 ml/min; Est GFR (African American) 94.4 ml/min; Est GFR (Non-African American) 81.5 ml/min
[2023-12-14] MEDS: lisinopril 10 MG TAB PO SCH (08:31)
--- NOTE | 2023-12-14 13:19 | Pharmacy Report ---
Pharmacy PK ABX Note - Date of Service December 14, 2023 - Assessment and Plan Assessment 63 year old F receiving empiric vancomycin and cefepime for treatment of LLE cellulitis. Pertinent microbiologic data includes: blood cultures x 2 pending. Patient with no known history of MRSA infection, no purulence, or obvious risk factors for MDROs. No findings on x-ray to suggest osteomyelitis. Discussed with hospitalist, de-escalation being considered. Renal function appears to be at/near baseline. Plan Vancomycin * Loading dose: 1750 mg IV x 1 * Maintenance dose: 1000 mg IV every 12 hours * Regimen is predicted to achieve target AUC/UMESH of 400-600 mg/L.hr * Will order level if vancomycin continues beyond 48 hours Pharmacy will continue to follow and will adjust dose/frequency as necessary. Thank you. Pharmacy has transitioned to AUC monitoring for vancomycin. AUC/UMESH is the preferred PK/PD target and is associated with decreased risk of nephrotoxicity compared to traditional trough targets.
--- NOTE | 2023-12-14 14:06 | Hospitalist Progress Note ---
Date of Service December 14, 2023 Assessment & Plan (1) Left leg cellulitis: Plan: Acute onset of left lower extremity swelling and erythema around noon on 12/11; patient then developed fever/chills that night Hx of cellulitis; no recent injuries to the left leg Venous Doppler of the left lower extremity revealed no evidence of DVT Left tib-fib x-ray revealed soft tissue swelling but no focal erosions to suggest osteomyelitis Elevated procalcitonin at 4.98 Elevated CRP Patient was started on vancomycin and cefepime. In response, leukocytosis has resolved. I see some clearing along the margins of her cellulitis. I will de-escalate to cefazolin A1c 5.2 Repeat CRP is 23. Will monitor clinically (2) Headache: Plan: Patient endorses a headache that developed around the same time on 12/11 No strokelike symptoms No history of stroke Head CT revealed moderate white matter hypodensities; ? Small vessel disease Brain MRI revealed no acute infarct or intracranial hemorrhage, but moderate microvascular ischemic changes Most likely a symptom associated with fever spikes. (3) Abdominal pain: Plan: Patient endorses reproducible epigastric pain, that she reports resolved yesterday Low suspicion for cardiac etiology, but will obtain troponin Most likely a symptom associated with her fever spikes (4) Hypokalemia: Plan: Mild; K 3.2 on arrival Repleted Plan DNR/DNI DVT PPx: Lovenox 40 mg SQ q24h Admission and Anticipated Discharge Date Admission Date: December 13, 2023 Subjective Patient is complaining of pain in her left lower extremity. Noted that her fevers are coming down. Review of Systems Review of Systems: All systems reviewed & are unremarkable except as noted in Subjective Physical Exam Physical Exam: General: Awake, conversant Heart: S1, S2/regular rate and rhythm, no murmur rubs or gallops Lungs: Clear to auscultation bilaterally. Normal effort Abdomen: Soft/nontender/nondistended. No hepatosplenomegaly Extremities: No clubbing/cyanosis. Left leg swelling and redness noted. Clearing along the margins noted. Behavior: Appropriate, cooperative Results & Data Results & Data Vital Signs (Past 12 Hours) Vital Signs Temp Pulse Resp BP Pulse Ox O2 Del Method 12/14/23 08:30 36.7 C 77 16 153/74 H 96 Room Air Laboratory Results Abnormal lab results 12/13/23 12/13/2324 Range/Units 14:03 16:59 06:55 RBC 4.02 L (4.20-5.40) M/uL Hgb 11.9 L (12.0-16.0) g/dl Hct 34.7 L (37.0-47.0) % Plt Count 98 L (130-400) K/uL Neut # (Auto) 7.09 H (1.40-6.50) K/uL Lymph # (Auto) 0.53 L (1.20-3.40) K/uL BUN/Creatinine Ratio 25.6 H (10-20) Glucose 108 H (70-99(Fasting)) mg/dl Calcium 8.3 L (8.6-10.3) mg/dl C-Reactive Protein 20.95 H 23.90 H (0-0.5) mg/dl B-Natriuretic Peptide 122 H (0-100) pg/ml PG Care Time/CCT Total # of Minutes Spent Total Time Spent with Patient: Total time spent is greater than 50% in coordination of care (as documented) at patient's floor/unit and/or counseling patient: Coding Level of Care Code 84119 SUB INP/OBS CARE 2/35MIN Diagnoses Left leg cellulitis L03.116 Headache R51.9 Abdominal pain R10.9 Hypokalemia E87.6
[2023-12-14] MEDS ORDERED: ceFAZolin 1000MG 1,000 MG/7.5 ML SYR IV SCH (14:15)
[2023-12-14] MEDS: ceFAZolin 2000MG 2,000 MG/15 ML SYR IV SCH (16:32)
--- NOTE | 2023-12-15 05:54 | Electrocardiogram Report ---
Test Reason : Blood Pressure : / mmHG Vent. Rate : 069 BPM Atrial Rate : 069 BPM P-R Int : 174 ms QRS Dur : 100 ms QT Int : 400 ms P-R-T Axes : 087 072 033 degrees QTc Int : 428 ms Normal sinus rhythm Nonspecific T wave abnormality Abnormal ECG When compared with ECG of 01-MAR-2022 04:27, No significant change was found Confirmed by Ezequiel Muñoz ([id number]) on 12/15/2023 5:53:57 AM Referred By: REFERRED SELF Confirmed By:Ezequiel Muñoz
[2023-12-15 08:30] LABS: BUN Creatinine Ratio 25.9 (10-20); Basophils # (auto) 0.02 K/uL (0.00-0.20); Basophils % (auto) 0.3 %; C Reactive Protein 21.63 mg/dl (0-0.5); Calcium 8.5 mg/dl (8.6-10.3); Creatinine Clr Calc Pharmacy 115.2 ml/min; Eosinophils # (auto) 0.06 K/uL (0.00-0.50); Est GFR (African American) 117.2 ml/min; Est GFR (Non-African American) 101.1 ml/min; Hematocrit (blood only) 33.2 % (37.0-47.0); Hemoglobin 11.2 g/dl (12.0-16.0); Immature Granulocytes # (auto) 0.02 K/uL (0.01-0.20); Immature Granulocytes % (auto) 0.3 %; Lymphocytes # (auto) 0.63 K/uL (1.20-3.40); Lymphocytes % (auto) 10.4 %; Mean Corpuscular Hemoglobin 28.9 pg (25.0-34.0); Mean Corpuscular Hgb Conc 33.7 g/dL (32.0-36.0); Mean Corpuscular Volume 85.8 fL (80.0-100.0); Mean Platelet Volume 11.1 fL (9.4-12.4); Monocytes # (auto) 0.33 K/uL (0.11-0.59); Monocytes % (auto) 5.4 %; Neutrophils # (auto) 5.01 K/uL (1.40-6.50); Neutrophils % (auto) 82.6 %; Platelet Count 118 K/uL (130-400); Potassium 3.7 mmol/L (3.5-5.1); RDW Coefficient of Variation 13.1 % (11.5-14.5); RDW Standard Deviation 41.1 fL (36.4-46.3); Red Blood Count 3.87 M/uL (4.20-5.40); White Blood Count 6.07 K/ul (4.8-10.8)
[2023-12-15] MEDS: IBUPROFEN 200 MG TAB PO PRN (10:45)
[2023-12-15] MEDS: FAMOTIDINE 20 MG TAB PO SCH (10:45)
--- NOTE | 2023-12-15 13:44 | Hospitalist Progress Note ---
Date of Service December 15, 2023 Assessment & Plan (1) Left leg cellulitis: Plan: Acute onset of left lower extremity swelling and erythema around noon on 12/11; patient then developed fever/chills that night Hx of cellulitis; no recent injuries to the left leg Venous Doppler of the left lower extremity revealed no evidence of DVT Left tib-fib x-ray revealed soft tissue swelling but no focal erosions to suggest osteomyelitis Elevated procalcitonin at 4.98 Elevated CRP Patient was started initially on vancomycin and cefepime. In response, leukocytosis has resolved. I see some clearing along the margins of her cellulitis. De-escalated to cefazolin A1c 5.2 Clinically improving with clearing margins. No more fever spikes. Leukocytosis has resolved. CRP improving (2) Headache: Plan: Patient endorses a headache that developed around the same time on 12/11 No strokelike symptoms No history of stroke Head CT revealed moderate white matter hypodensities; ? Small vessel disease Brain MRI revealed no acute infarct or intracranial hemorrhage, but moderate microvascular ischemic changes Most likely a symptom associated with fever spikes. (3) Abdominal pain: Plan: Patient endorses reproducible epigastric pain, that she reports resolved yesterday Low suspicion for cardiac etiology, but will obtain troponin Possibly gastritis Started Pepcid and Mylanta (4) Hypokalemia: Plan: Mild; K 3.2 on arrival Repleted Plan DNR/DNI DVT PPx: Lovenox 40 mg SQ q24h Admission and Anticipated Discharge Date Admission Date: December 13, 2023 Physical Exam Physical Exam: General: Awake, conversant Heart: S1, S2/regular rate and rhythm, no murmur rubs or gallops Lungs: Clear to auscultation bilaterally. Normal effort Abdomen: Soft/nontender/nondistended. No hepatosplenomegaly Extremities: No clubbing/cyanosis. Left leg swelling and redness noted. Clearing along the margins noted. Behavior: Appropriate, cooperative Results & Data Results & Data Vital Signs (Past 12 Hours) Vital Signs Temp Pulse Resp BP Pulse Ox O2 Del Method 12/15/23 07:48 36.8 C 64 16 163/85 H 95 Room Air PG Care Time/CCT Total # of Minutes Spent Total Time Spent with Patient: Total time spent is greater than 50% in coordination of care (as documented) at patient's floor/unit and/or counseling patient: Coding Level of Care Code 61881 SUB INP/OBS CARE 235MIN Diagnoses Left leg cellulitis L03.116 Headache R51.9 Abdominal pain R10.9 Hypokalemia E87.6
[2023-12-15] MEDS ORDERED: ALUMINUM/MAGNESIUM/SIMETH (MAALOX MAX) 30 ML UDC PO PRN (13:46)
[2023-12-16 06:35] LABS: Basophils # (auto) 0.03 K/uL (0.00-0.20); Basophils % (auto) 0.5 %; Eosinophils # (auto) 0.11 K/uL (0.00-0.50); Eosinophils % (auto) 1.7 %; Hematocrit (blood only) 35.7 % (37.0-47.0); Hemoglobin 12.1 g/dl (12.0-16.0); Immature Granulocytes # (auto) 0.03 K/uL (0.01-0.20); Immature Granulocytes % (auto) 0.5 %; Lymphocytes # (auto) 0.97 K/uL (1.20-3.40); Lymphocytes % (auto) 15.3 %; Mean Corpuscular Hemoglobin 28.7 pg (25.0-34.0); Mean Corpuscular Hgb Conc 33.9 g/dL (32.0-36.0); Mean Corpuscular Volume 84.8 fL (80.0-100.0); Mean Platelet Volume 11.3 fL (9.4-12.4); Monocytes # (auto) 0.42 K/uL (0.11-0.59); Monocytes % (auto) 6.6 %; Neutrophils % (auto) 75.4 %; Platelet Count 158 K/uL (130-400); RDW Coefficient of Variation 13.1 % (11.5-14.5); RDW Standard Deviation 40.5 fL (36.4-46.3); Red Blood Count 4.21 M/uL (4.20-5.40); White Blood Count 6.36 K/ul (4.8-10.8)
[2023-12-16 06:38] LABS: BUN Creatinine Ratio 22.9 (10-20); C Reactive Protein 16.11 mg/dl (0-0.5); Creatinine Clr Calc Pharmacy 129.6 ml/min; Est GFR (African American) 121.8 ml/min; Est GFR (Non-African American) 105.1 ml/min; Potassium 3.9 mmol/L (3.5-5.1)
[2023-12-16] MEDS: lisinopril 20 MG TAB PO SCH (09:17)
--- NOTE | 2023-12-16 14:42 | Hospitalist Progress Note ---
Date of Service December 16, 2023 Assessment & Plan (1) Left leg cellulitis: Plan: Acute onset of left lower extremity swelling and erythema around noon on 12/11; patient then developed fever/chills that night Hx of cellulitis; no recent injuries to the left leg Venous Doppler of the left lower extremity revealed no evidence of DVT Left tib-fib x-ray revealed soft tissue swelling but no focal erosions to suggest osteomyelitis Elevated procalcitonin at 4.98 Elevated CRP, trended down Patient was started initially on vancomycin and cefepime. In response, leukocytosis has resolved. I see some clearing along the margins of her cellulitis. De-escalated to cefazolin Switch to p.o. Keflex today A1c 5.2 Clinically improving with clearing margins. No more fever spikes. Leukocytosis has resolved. CRP improving (2) Headache: Plan: Patient endorses a headache that developed around the same time on 12/11 No strokelike symptoms No history of stroke Head CT revealed moderate white matter hypodensities; ? Small vessel disease Brain MRI revealed no acute infarct or intracranial hemorrhage, but moderate microvascular ischemic changes Most likely a symptom associated with fever spikes. Resolved (3) Abdominal pain: Plan: Patient endorses reproducible epigastric pain, that she reports resolved yesterday Low suspicion for cardiac etiology, but will obtain troponin Possibly gastritis Continue Pepcid and Mylanta (4) Hypokalemia: Plan: Mild; K 3.2 on arrival Repleted Plan DNR/DNI DVT PPx: Lovenox 40 mg SQ q24h Admission and Anticipated Discharge Date Admission Date: December 13, 2023 Subjective Patient feels well. Denies chest pain or shortness of breath. Still complains of pain in her leg. Physical Exam Physical Exam: General: Awake, conversant Heart: S1, S2/regular rate and rhythm, no murmur rubs or gallops Lungs: Clear to auscultation bilaterally. Normal effort Abdomen: Soft/nontender/nondistended. No hepatosplenomegaly Extremities: No clubbing/cyanosis. Left leg swelling and redness noted. Clearing along the margins noted. Behavior: Appropriate, cooperative Results & Data Results & Data Vital Signs (Past 12 Hours) Vital Signs Temp Pulse Resp BP Pulse Ox O2 Del Method 12/16/23 07:15 37 C 74 16 164/81 H 96 Room Air PG Care Time/CCT Total # of Minutes Spent Total Time Spent with Patient: Total time spent is greater than 50% in coordination of care (as documented) at patient's floor/unit and/or counseling patient: Coding Level of Care Code 50665 SUB INP/OBS CARE 235MIN Diagnoses Left leg cellulitis L03.116 Headache R51.9 Abdominal pain R10.9 Hypokalemia E87.6
[2023-12-16] MEDS: cephALEXin 500 MG CAP PO SCH (20:15)
[2023-12-17 08:46] LABS: Hematocrit (blood only) 34.1 % (37.0-47.0); Hemoglobin 11.5 g/dl (12.0-16.0); Mean Corpuscular Hemoglobin 28.8 pg (25.0-34.0); Mean Corpuscular Hgb Conc 33.7 g/dL (32.0-36.0); Mean Corpuscular Volume 85.3 fL (80.0-100.0); Mean Platelet Volume 10.4 fL (9.4-12.4); Platelet Count 184 K/uL (130-400); RDW Coefficient of Variation 13.2 % (11.5-14.5); RDW Standard Deviation 41.4 fL (36.4-46.3); White Blood Count 5.47 K/ul (4.8-10.8)
--- NOTE | 2023-12-17 11:21 | Ultrasound Report ---
US extremity non-vascular ltd CLINICAL HISTORY: LLE cellulitis r/o pus collection COMPARISON STUDY: None. FINDINGS: Real-time sonographic imaging of the left lower leg was performed with dental sales representative image s submitted. There is subcutaneous edema and increased echogenicity within the subcutaneous fat. This can be seen in the setting of a cellulitis. No loculated fluid collections to suggest an abscess. IMPRESSION: 1. No loculated fluid collections to suggest an abscess. 2. Subcutaneous edema and increased echogenicity within the subcutaneous fat of the left lower leg. T his could represent a cellulitis. ACT 112: Negative or not required by law. Electronically signed by: Jose Antonio Hills M.D. 12/17/2023 11:19 AM
--- NOTE | 2023-12-17 14:19 | Hospitalist Progress Note ---
Date of Service December 17, 2023 Assessment & Plan (1) Left leg cellulitis: Plan: Acute onset of left lower extremity swelling and erythema around noon on 12/11; patient then developed fever/chills that night Hx of cellulitis; no recent injuries to the left leg Venous Doppler of the left lower extremity revealed no evidence of DVT Left tib-fib x-ray revealed soft tissue swelling but no focal erosions to suggest osteomyelitis Elevated procalcitonin at 4.98 Elevated CRP, trended down Patient was started initially on vancomycin and cefepime. In response, leukocytosis has resolved. I see some clearing along the margins of her cellulitis. De-escalated to cefazolin Switch to p.o. Keflex 12/15 A1c 5.2 Clinically improving with clearing margins. No more fever spikes. Leukocytosis has resolved. CRP continues to improve Patient still keeps complaining of ongoing pain and redness. She admits that the fevers have gone and the headache has improved. To prove to patient that the cellulitis is improved, I ordered a CBC, CRP, ultrasound. Leukocytosis resolved. CRP improved. Ultrasound shows no pus collection. Plan to discharge the patient tomorrow on p.o. Keflex (2) Headache: Plan: Patient endorses a headache that developed around the same time on 12/11 No strokelike symptoms No history of stroke Head CT revealed moderate white matter hypodensities; ? Small vessel disease Brain MRI revealed no acute infarct or intracranial hemorrhage, but moderate microvascular ischemic changes Most likely a symptom associated with fever spikes. Resolved (3) Abdominal pain: Plan: Patient endorses reproducible epigastric pain, that she reports resolved yesterday Low suspicion for cardiac etiology, but will obtain troponin Possibly gastritis Continue Pepcid and Mylanta (4) Hypokalemia: Plan: Mild; K 3.2 on arrival Repleted Plan DNR/DNI DVT PPx: Lovenox 40 mg SQ q24h Disposition: Plan to discharge tomorrow Admission and Anticipated Discharge Date Admission Date: December 13, 2023 Subjective Patient complains of pain at the cellulitic area every day that is not improving as fast as she would like it to. To prove to her that the cellulitis is improving, ordered a CBC, CRP and an ultrasound. Asked the patient to keep the leg elevated to improve swelling Review of Systems Review of Systems: All systems reviewed & are unremarkable except as noted in Subjective Physical Exam Physical Exam: General: Awake, conversant Heart: S1, S2/regular rate and rhythm, no murmur rubs or gallops Lungs: Clear to auscultation bilaterally. Normal effort Abdomen: Soft/nontender/nondistended. No hepatosplenomegaly Extremities: No clubbing/cyanosis. Left leg swelling and redness noted. Clearing along the margins noted. Behavior: Appropriate, cooperative Results & Data Results & Data Vital Signs (Past 12 Hours) Vital Signs Temp Pulse Resp BP Pulse Ox O2 Del Method 12/17/23 07:18 36.9 C 77 16 159/52 H 95 Room Air Laboratory Results Abnormal lab results 12/17/23 Range/Units 08:28 RBC 4.00 L (4.20-5.40) M/uL Hgb 11.5 L (12.0-16.0) g/dl Hct 34.1 L (37.0-47.0) % C-Reactive Protein 8.88 H (0-0.5) mg/dl Diagnostic Findings Vascular Ultrasound 12/17/23 08:02 US extremity non-vascular ltd CLINICAL HISTORY: LLE cellulitis r/o pus collection COMPARISON STUDY: None. FINDINGS: Real-time sonographic imaging of the left lower leg was performed with telesales representative images submitted. There is subcutaneous edema and increased echogenicity within the subcutaneous fat. This can be seen in the setting of a cellulitis. No loculated fluid collections to suggest an abscess. IMPRESSION: 1. No loculated fluid collections to suggest an abscess. 2. Subcutaneous edema and increased echogenicity within the subcutaneous fat of the left lower leg. This could represent a cellulitis. ACT 112: Negative or not required by law. Electronically signed by: Jose Antonio Hills M.D. 12/17/2023 11:19 AM PG Care Time/CCT Total # of Minutes Spent Total Time Spent with Patient: Total time spent is greater than 50% in coordination of care (as documented) at patient's floor/unit and/or counseling patient: Coding Level of Care Code 02817 SUB INP/OBS CARE 2/35MIN Diagnoses Left leg cellulitis L03.116 Headache R51.9 Abdominal pain R10.9 Hypokalemia E87.6
--- NOTE | 2023-12-18 11:31 | Discharge Summary ---
Date of Service December 18, 2023 Admission HPI Per Admitting Provider Judy is a 63-year-old female with PMH of UTI, sepsis, dyskinesia of left scapula, and osteoarthritis. She presented for worsening left lower extremity cellulitis that began around noon on 12/11. Patient does have a history of cellulitis in her right leg. She denies any recent injuries to her left lower extremity. She reports that she developed a fever last night around 102 F and took some Tylenol. She endorses pain in her left lower extremity that is 3/10 after receiving pain medicine in the ED. She describes it as a constant, dull, achy pain. No radiation above her knee. Patient does not take medications on a daily basis. No history of diabetes, CHF, or HTN to her knowledge. She also presented for a headache that started around noon yesterday when the cellulitis developed. No history of strokes, and she denies any strokelike symptoms such as slurred speech, facial droop, unilateral deficits, or changes in vision. She endorses epigastric pain yesterday, which resolved; no recent change in diet. Patient's vitals are stable at time of admission. ED course: Vancomycin 1750 mg IV Cefepime 2000 mg IV Morphine sulfate 4 mg IV Zofran 4 mg IV Potassium chloride 40 mill equivalents p.o. NSS 500 mL IV ROS: Patient endorses fever, chills, headache, abdominal pain (resolved), and pain in the left lower extremity. Patient denies night-sweats, dizziness, lightheadedness, rashes, tick bites, slurred speech, facial droop, unilateral deficits, change in vision, chest pain, SOB, cough, N/V/D, or changes in urinary/bowel habits. Admission Exam Per Admitting Provider General: no acute distress; non-toxic appearing; well-nourished; cooperative; SpO2 96% on RA HEENT: normocephalic, atraumatic; no scleral icterus; PERRLA w/ EOMs intact; moist mucus membrane; vision and hearing grossly intact Neck: supple; no lymphadenopathy; trachea midline Skin: warm, dry without signs of tenting; no cyanosis; no rashes, bruising, le sions, or erythema noted CV: chest wall NTP; RRR; S1/S2 normal; no murmurs/rubs/gallops; pulses intact and symmetric at radial, DP, and PT Lungs: no acute respiratory distress; symmetrical chest wall expansion; clear breath sounds across all lung atkins w/o adventitious sounds; no wheezing ABD: Soft, NTP; BS present; no rebound/guarding; no distention MSK: no tics or fasciculations; no edema noted in the LEs b/l LLE: Erythematous, and warm to touch circumferentially extending from the ankle to the knee (see photos below) Neuro: A&Ox3; normal mood and affect; fluent speech; no focal deficits; s ensation grossly intact in the LEs b/l Principal Diagnosis Left leg cellulitis Hypertension Discharge Exam General: Awake, conversant Heart: S1, S2/regular rate and rhythm, no murmur rubs or gallops Lungs: Clear to auscultation bilaterally. Normal effort Abdomen: Soft/nontender/nondistended. No hepatosplenomegaly Extremities: No clubbing/cyanosis. Left leg swelling and redness noted. Clearing along the margins noted. Behavior: Appropriate, cooperative Discharge Data Allergies Allergy/AdvReac Type Severity Reaction Status Date / Time No Known Allergies Allergy Verified 09/30/23 14:14 Consultations 12/13/23 15:41 ED Decision to Admit Stat Ordered Studies 12/13/23 12:09 CT head/brain wo con Stat US venous doppler LE LT Stat 12/13/23 12:58 MRI Brain [MR brain wo con] Stat 12/17/23 08:02 US leg [US extremity non-vascular ltd] Urgent Hospital Course (1) Left leg cellulitis: Acute onset of left lower extremity swelling and erythema around noon on 12/11; patient then developed fever/chills that night Hx of cellulitis; no recent injuries to the left leg Venous Doppler of the left lower extremity revealed no evidence of DVT Left tib-fib x-ray revealed soft tissue swelling but no focal erosions to suggest osteomyelitis Elevated procalcitonin at 4.98 Elevated CRP, trended down Patient was started initially on vancomycin and cefepime. In response, leukocytosis has resolved. I see some clearing along the margins of her cellulitis. De-escalated to cefazolin Switch to p.o. Keflex / A1c 5.2 Clinically improving with clearing margins. No more fever spikes. Leukocytosis has resolved. CRP continues to improve Patient still keeps complaining of ongoing pain and redness. She admits that the fevers have gone and the headache has improved. To prove to patient that the cellulitis is improved, I ordered a CBC, CRP, ultrasound. Leukocytosis resolved. CRP improved. Ultrasound shows no pus collection. Plan to discharge the patient on p.o. Keflex (2) Headache: Patient endorses a headache that developed around the same time on 12/11 No strokelike symptoms No history of stroke Head CT revealed moderate white matter hypodensities; ? Small vessel disease Brain MRI revealed no acute infarct or intracranial hemorrhage, but moderate microvascular ischemic changes Most likely a symptom associated with fever spikes. Resolved (3) Abdominal pain: Patient endorses reproducible epigastric pain, that she reports resolved yesterday Low suspicion for cardiac etiology, but will obtain troponin Possibly gastritis Continue Pepcid and Mylanta (4) Hypokalemia: Mild; K 3.2 on arrival Repleted (5) HTN (hypertension): Noted that her blood pressure has been elevated during the hospital stay Started her on lisinopril which I will discharge her on Plan Discharge to home today Total Time Total Time Spent Total Time Spent (In Minutes): 35 Discharge Plan Discharge Items Patient Disposition: Home - Self-Care Reason For Visit: LLE REDNESS/SWELLING; HEADACHE Discharge Diagnosis: Left leg cellulitis Hypertension Activity: As commented below Activity Comment: increase activity gradually as tolerated Non-emergency contact: Primary Care Provider Call non-emergency contact if: you have any medication questions and your symptoms worsen Follow-up/Referrals: Ronda Goodwin MD [Primary Care Provider] - Diet: Heart Healthy Addtl Attending Provider Instructions: Advised to follow-up with PCP in 1 week Pending Studies at Discharge: No Stand-Alone Forms: [facility] Medications and DC Order Prescriptions: New cephalexin 500 mg Capsule 500 mg PO BID 4 Days Qty: 8 0RF lisinopril 20 mg Tablet 40 mg PO QAM 30 Days Qty: 60 0RF No Action No Known Home Medications Discharge Orders: Discharge Order (Routine); Ordered 12/18/23 Ordered By: Emi Patel Admission Data Admit Date/Time: 12/13/23 16:30 Attending Provider: Emi Patel Admit Provider: Zehra Carter Primary Care Provider: Baitel,Ronda Other Providers: Zehra Carter Other Interventions: Discharge Summary Assessment (RN) Last Done: 12/18/23 13:03 Coding Level of Care Code 61228 INP/OBS DISCH >30 MIN Diagnoses Left leg cellulitis L03.116 Headache R51.9 Abdominal pain R10.9 Hypokalemia E87.6 HTN (hypertension) I10
== END 2023-12-18 14:44 | disposition home or self-care (01) | DRG 603 ==
LOC: ED 11:39 → 3N 16:30 → SUATTDRO 16:30 → 3N 19:07